=== PATIENT | male | born 1960 | race Caucasian/White ===

== ENCOUNTER 2017-08-11 13:46 | Emergency (ER) | payer BC ==
[~2017-08-11] VITALS: Ht 175.3 cm; Wt 69.9 kg
[~2017-08-11 13:46] MED LIST: ATENOLOL50 MG PO; CHLORDIAZEPOXI1 EACH PO; DICYCLOMINE HCL20 MG PO; FLAGYL500 MG PO; HOME PO; LEVSIN0.125 MG; LIALDA1.2 GM; LISINOPRIL10 MG PO; LOPRESSOR25 MG PO; MAGNESIUM IV; METRONIDAZOLE500 MG PO; PANTOPRAZOLE SO40 MG PO; PRINIVIL10 MG PO; PROTONIX40 MG PO; PROTONIX40 MG/ML PO; RAPAFLO4 MG PO; ZOFRAN ODT4 MG
[2017-08-11] MEDS ORDERED: ONDANSETRON HCL 4 MG ORAL DISINTEGRATING TAB ONE (14:50)
[2017-08-11] MEDS ORDERED: MULTIVITAMINS- 12 INJECTION 10 ML, FOLIC ACID MDV 5 MG, THIAMINE HCL INJ 100 MG in SODI... IV ONE (15:00)
[2017-08-11] MEDS ORDERED: ONDANSETRON HCL 4 MG ORAL DISINTEGRATING TAB PO ONE ×2 (15:00)
--- NOTE | 2017-08-11 16:51 | Diagnostic Imaging Report ---
PROCEDURE: CT ABDOMEN AND PELVIS WITHOUT CONTRAST COMPARISON:06/27/15. INDICATIONS:ULCERATIVE COLITIS, VOMITTING CENTER ABDOMINAL PAIN FOR 3 DAYS TECHNIQUE: Axial CT images through the abdomen and pelvis were obtained without intravenous contrast. Coronal and sagittal reformations were created. DLP: 371.4 mGy-cm FINDINGS: Lung bases: Clear. Visualized portion mediastinum is normal. Right kidney: No calculus, mass, or hydronephrosis. Left kidney: There may be a pixel sized calculus in an anterior interpolar calyx. No hydronephrosis. No cortical mass. Bladder/ureters: Normal diameter throughout their course. No calculus. The bladder is normal. Liver: Profound hepatic steatosis. The right lobe measures 17 cm in length. No evidence of mass. Spleen: Normal in size and attenuation without mass. Biliary: Present. No evidence of gallstone or gallbladder wall thickening. No biliary ductal dilatation. Pancreas: Mild fatty atrophy. No mass or ductal dilatation. Adrenal Glands: No evidence of mass Vasculature: The aorta is normal in diameter with a few atherosclerotic calcifications. GI: The stomach is well distended and appears normal. The small bowel is normal in diameter with normal wall thickness. There is a small amount of submucosal fat deposition in the terminal ileum. No associated inflammation or lymphadenopathy. A diverticulum in the first portion of the duodenum contains a small amount of enteric contrast. This measures 7 mm in diameter. There are diverticula in the large bowel without associated inflammation. There is a small amount of contrast throughout the colon. Submucosal fat deposition in the right colon is stable with some progression into the transverse colon compared to previous exam. There is no evidence of fistula or fluid collection. Appendix: Normal. Peritoneum/Retroperitoneum: No free fluid or fluid collection. Lymph nodes: No lymphadenopathy. MSK: There mild degenerative changes of the spine consistent with age. Vertebral body heights are symmetric. There is no evidence of lytic or blastic lesion. Soft tissues: Small fat-containing inguinal hernias. CONCLUSION: 1. Diverticulosis coli. No acute inflammation. Progression of submucosal fat deposition suggestive of previous bouts of inflammation. No bowel obstruction. Normal appendix. 2. Profound hepatic steatosis. 3. Tiny potential calculus in the left kidney. No obstructive uropathy. Dictated by: Helen Slaughter M.D. on 08/11/2017 at 16:59 Electronically approved by: Helen Slaughter M.D. on 08/11/2017 at 16:59
[2017-08-11 20:30] LABS: BASOPHILS # (AUTO) 0.1 (0.0-0.1); BASOPHILS % 0.7 % (0.0-1.0); EOSINOPHILS % 0.1 % (0.0-6.0); HEMATOCRIT 49.7 % (38.2-49.6); HEMOGLOBIN 17.4 g/dL (14.0-18.0); LYMPHOCYTES # (AUTO) 1.7 (1.0-3.2); MEAN CORPUSCULAR HEMOGLOBIN 32.7 pg (28-32); MEAN CORPUSCULAR VOLUME 93.4 fL (81-99); MONOCYTES # (AUTO) 0.8 (0.2-0.8); MONOCYTES % 12.4 % (4.4-11.3); NEUTROPHILS # (AUTO) 4.2 (2.1-6.9); NEUTROPHILS % 61.5 % (38.7-80.0); PLATELET COUNT 117 x10e3/uL (140-360); RED BLOOD COUNT 5.32 x10e6/uL (4.3-5.7); RED CELL DISTRIBUTION WIDTH 12.8 % (11.7-14.4)
[2017-08-11] MEDS ORDERED: ONDANSETRON HCL INJ 2 MG/ML VIAL IV ONE (20:30)
[2017-08-11] MEDS ORDERED: KETOROLAC TROMETHAMINE 30 MG/ML VIAL IV ONE (20:30)
[2017-08-11 20:46] LABS: ALANINE AMINOTRANSFERASE 111 IU/L (0-55); ALBUMIN 4.7 g/dL (3.5-5.0); ALBUMIN/GLOBULIN RATIO 1.2 (0.8-2.0); ALKALINE PHOSPHATASE 102 IU/L (40-150); AMYLASE 85 U/L (25-125); ANION GAP 26.6 mmol/L (8-16); BLOOD UREA NITROGEN 12 mg/dL (7-26); BUN/CREATININE RATIO 13 (6-25); CARBON DIOXIDE 23 mmol/L (22-29); CHLORIDE 93 mmol/L (98-107); CREATININE, SERUM 0.95 mg/dL (0.72-1.25); EST GLOMERULAR FILTRATION RATE > 60 ML/MIN (60-); GLUCOSE 81 mg/dL (74-118); LIPASE 159 U/L (8-78); POTASSIUM 3.6 mmol/L (3.5-5.1); SODIUM 139 mmol/L (136-145)
[2017-08-11] MEDS ORDERED: HYOSCYAMINE SULFATE 0.5 MG/ML AMP IV ONE (23:00)
[2017-08-11] MEDS ORDERED: DICYCLOMINE HCL 20 MG TAB PO ONE (23:45)
[2017-08-11 23:49] VITALS: BP 153/97
== END 2017-08-12 00:45 | disposition home or self-care (01) ==
LOC: ER 13:46
DX: R10.11 Right upper quadrant pain (principal); R10.12 Left upper quadrant pain; R11.2 Nausea with vomiting, unspecified; K29.20 Alcoholic gastritis without bleeding; I10 Essential (primary) hypertension; K86.9 Disease of pancreas, unspecified; F17.220 Nicotine dependence, chewing tobacco, uncomplicated
CPT/HCPCS: 36415; 74176; 80053; 82150; 83690; 85025; 96360; 96374; 96376; 99284; J1885; J2405; J3411; J7030; J1980

== ENCOUNTER → 2017-08-22 | Day surgery (SDC) | payer BC ==
[~2017-08-22] MED LIST changes: +FENTANYL CITRATE/PF 100MCG/2 ML INJ ONE; +LIDOCAINE HCL 2% LOCAL INJ 5 ML SDV VIAL INJ ONE; +METOCLOPRAMIDE HCL 10 MG/2ML VIAL ONE; +MIDAZOLAM HCL 2 MG/2 ML VIAL ONE; +PROPOFOL IV EMULSION 10 MG/ML 50 ML VIAL ONE
--- NOTE | 2017-08-22 13:04 | Operative Report ---
DATE OF PROCEDURE: August 22, 2017 REFERRING PHYSICIAN: Dr. Ashish Sanches. PROCEDURES PERFORMED 1. Esophagogastroduodenoscopy with esophageal dilatation and biopsies. 2. Colonoscopy with polypectomy and biopsies. INDICATIONS FOR EGD: Dysphagia, nausea and vomiting. INDICATIONS FOR COLONOSCOPY: Persistent diarrhea. MEDICATION: Patient was done under MAC. Please see anesthesiologist's note. PROCEDURE: With the patient in the left lateral decubitus position, the flexible fiberoptic Olympus gastroscope was introduced into the esophagus under direct visualization without any difficulty. There was some patchy erythema noted in the distal esophagus. There was some focal nodularity noted at the GE junction, and that was biopsied. A mild stricture was noted at the GE junction that was dilated to size 50-Yi Umaña. An approximately 7-mm nodule was noted in the hiatal hernia sac, and that was biopsied. The scope then traversed with ease the hiatal hernia and was advanced all the way to the stomach. Mucosa overlying the antrum and the body revealed some patchy erythema and mild to moderate edema, and biopsies were obtained and sent to stain for H. pylori. The pylorus was of normal contour and shape. It was intubated with ease, and the scope was advanced all the way to the 2nd portion of the duodenum. The scope was then withdrawn slowly. Mucosa overlying the proximal 2nd portion was biopsied to rule out sprue. Mucosa overlying the duodenal bulb appeared to be within normal limits. The scope was then withdrawn back into the stomach and retroflexed, and mucosa overlying the fundus appeared to be within normal limits. The previously described hiatal hernia was also noted in the retroflexed position. The scope was then straightened out, and it was subsequently withdrawn. Patient tolerated the procedure well. IMPRESSION 1. Distal esophagitis. 2. Focal nodularity at gastroesophageal junction, biopsied. 3. Esophageal stricture at gastroesophageal junction dilated to a size 50-Yi Umaña. 4. Small hiatal hernia. Approximately 7-mm nodule in hiatal hernia sac, biopsied. 5. Gastritis, biopsied. Biopsies sent to stain for H. pylori. 6. Rule out sprue. PLAN: Follow up histology. Initiate Protonix 40 mg 1 p.o. q.a.m. a.c. The patient was then turned around. After adequate lubrication of the anal canal, a flexible fiberoptic Olympus colonoscope was inserted into the rectum with ease and advanced all the way to the cecum. The mucosa overlying the cecum appeared to be within normal limits. The ileocecal valve was intubated. The scope was advanced into the terminal ileum. Biopsies were obtained. The scope was then withdrawn back into the colon. It was then withdrawn slowly. Mucosa overlying the ascending colon and transverse colon as well as the descending colon and the sigmoid colon revealed some patchy erythema and low-grade to moderate edema, and random biopsies were obtained. Some diverticular disease was noted in the sigmoid colon. One polyp was snared and three polyps were hot biopsied from the sigmoid. Six polyps were hot biopsied from the rectum. The scope was then retroflexed into the distal rectum, and small internal hemorrhoids were noted, none of which was actively bleeding. The scope was then straightened out. It was subsequently withdrawn after securing an adequate stool specimen that was sent for the appropriate stool studies. Patient tolerated the procedure well. IMPRESSION 1. Mild patchy colitis, random biopsies obtained. 2. Diverticulosis, sigmoid colon. 3. Sigmoid colon polyps times 4, one snared and three hot biopsied. 4. Rectal polyps times 6, hot biopsied. 5. Proctitis, mild, biopsied. 6. Internal hemorrhoids, none actively bleeding. PLAN: Follow up histology. Follow up stool studies. Start Bentyl 10 mg 1 p.o. t.i.d. Patient will need a followup colonoscopy in 3 years. Job#: [id number] cc:ASHISH SANCHES MD
[2017-08-22 17:21] LABS: WBC,FECAL (FECAL LACTOFERRIN) NEGATIVE (NEGATIVE)
[2017-08-22 17:24] LABS: C DIFFICILE TOXIN A&B AMP PROB **POSITIVE** (NEGATIVE)
== END | disposition home or self-care (01) ==
LOC: OR 09:10
PROVIDERS: ATTEND Internal Medicine Gastroenterology
DX: K51.80 Other ulcerative colitis without complications (principal); D12.5 Benign neoplasm of sigmoid colon; K62.1 Rectal polyp; K29.70 Gastritis, unspecified, without bleeding; K22.2 Esophageal obstruction; K29.80 Duodenitis without bleeding; K20.9 Esophagitis, unspecified; K22.8 Other specified diseases of esophagus; K44.9 Diaphragmatic hernia without obstruction or gangrene; K57.30 Diverticulosis of large intestine without perforation or abscess without bleeding; K62.89 Other specified diseases of anus and rectum; K64.8 Other hemorrhoids; K76.0 Fatty (change of) liver, not elsewhere classified; I10 Essential (primary) hypertension; G62.9 Polyneuropathy, unspecified; Z01.810 Encounter for preprocedural cardiovascular examination
CPT/HCPCS: 43239; 43450; 45384; 45385; 83630; 83993; 87045; 87177; 87328; 87493; 93005; J2001; J2250; J2765; 45378; 45380

== ENCOUNTER 2019-03-30 02:14 | Inpatient (IN) | payer SELFPAY ==
[2019-03-30] VITALS (7 sets, daily range): BP systolic 98–121; BP diastolic 62–85
[~2019-03-30] VITALS: Ht 175.3 cm; Wt 69.9 kg
[~2019-03-30 02:14] MED LIST changes: -FENTANYL CITRATE/PF 100MCG/2 ML INJ ONE; -LIDOCAINE HCL 2% LOCAL INJ 5 ML SDV VIAL INJ ONE; -METOCLOPRAMIDE HCL 10 MG/2ML VIAL ONE; -MIDAZOLAM HCL 2 MG/2 ML VIAL ONE; -PROPOFOL IV EMULSION 10 MG/ML 50 ML VIAL ONE
[2019-03-30] MEDS ORDERED: SODIUM CHLORIDE 0.9% 1000ML 1,000 ML IV STA ×3 (02:17→04:10)
[2019-03-30] MEDS ORDERED: ONDANSETRON HCL INJ 2MG/ML 2ML 2 MG/ML VIAL IV STA (02:17)
--- OUTSIDE RECORDS SUMMARY | 2019-03-30 02:18 | XMS REPORT | Clinical Summary ---
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 Active ciclesonide 37 Use 1 Helix 0 mcg/actuation HFA aerosol in each 8 inhaler nostril daily For nasal congestion. Active gabapentin (NEURONTIN) Take by 0 300 mg capsule mouth. 8 Active gabapentin (NEURONTIN) Take by 0 600 mg tablet mouth. 8 Active mirtazapine (REMERON) 15 Take by 0 MG tablet mouth. 8 Active PARoxetine (PAXIL) 10 MG Take by 0 tablet mouth. 8 Active traZODone (DESYREL) 100 Take by 0 MG tablet mouth. 8 Active Problems Not on file Encounters Care Team Description Date Type Specialty N/A 04/09/2018 Intake Access Alvarez Roy Jr., MD Suicidal ideation (Primary Dx); Depression, unspecified depression type 04/08/2018 Emergency Emergency Medicine - 04/09/2018 after 03/29/2018 Social History Date Tobacco Use Types Packs/Day Years Used Never Smoker Smokeless Tobacco: Never Used Drinks/Week oz/Week Comments Alcohol Use Yes Sex Assigned at Date Recorded Not on file Industry Job Start Date Occupation Not on file Not on file Not on file Travel End Travel History Travel Start No recent travel history available. Last Filed Vital Signs Reading Time Taken Comments Vital Sign 140/72 04/09/2018 5:41 AM CDT Blood Pressure 82 04/09/2018 5:41 AM CDT Pulse 36.9 C (98.4 F) 04/09/2018 5:41 AM CDT Temperature 16 04/09/2018 5:41 AM CDT Respiratory Rate 98% 04/09/2018 5:41 AM CDT Oxygen Saturation - - Inhaled Oxygen Concentration - - Weight 177.8 cm (5' 10") 04/08/2018 5:47 PM CDT Height - - Body Mass Index Plan of Treatment Not on file Procedures Comments Procedure Name Priority Date/Time Associated Diagnosis ALCOHOL LEVEL, BLOOD Timed 04/09/2018 3:34 AM CDT ECG ED PRELIMINARY Routine 04/08/2018 INTERPRETATION 8:01 PM CDT URINALYSIS SCREEN AND STAT 04/08/2018 MICROSCOPY, WITH REFLEX 6:28 PM CDT TO CULTURE URINE DRUGS OF ABUSE STAT 04/08/2018 SCREEN 6:28 PM CDT ECG 12-LEAD STAT 04/08/2018 6:25 PM CDT ZZESTIMATED GFR STAT 04/08/2018 6:15 PM CDT SALICYLATE LEVEL STAT 04/08/2018 6:15 PM CDT ACETAMINOPHEN LEVEL STAT 04/08/2018 6:15 PM CDT ALCOHOL LEVEL, BLOOD STAT 04/08/2018 6:15 PM CDT T4, FREE STAT 04/08/2018 6:15 PM CDT THYROID STIMULATING STAT 04/08/2018 HORMONE 6:15 PM CDT COMPREHENSIVE METABOLIC STAT 04/08/2018 PANEL 6:15 PM CDT HC COMPLETE BLD COUNT STAT 04/08/2018 W/AUTO DIFF 6:15 PM CDT after 03/29/2018 Results * Alcohol level, blood (04/09/2018 3:34 AM CDT) Only the most recent of 2 results within the time period is included. Alcohol 51.6 mg/dL [facility] Comment: OF PATHOLOGY Normal AND GENOMIC None MEDICINE Detected Legal Intoxication in [place] 80 mg/dL (0.08%) Toxic Concentration 200 mg/dL (0.2%) Potentially Fatal 350-500 mg/dL (0.35%-0.5%) Alcohol percent 0.052 % [facility] OF PATHOLOGY AND GENOMIC MEDICINE Specimen Blood Performing Organization Address City/State/Zipcode Phone Number [facility] [address] [place] [address] PATHOLOGY AND GENOMIC MEDICINE * ECG ED Preliminary Interpretation - NOT AN ORDER (04/08/2018 8:01 PM CDT) Narrative Performed At Alvarez Roy Jr., MD 04/10/20181:51 AM ECG ED Preliminary Interpretation - Not an Order Performed by: ALVAREZ ROY JR. Authorized by: ALVAREZ ROY JR. ECG reviewed by ED Physician in the absence of a microfilm processor: yes Interpretation: Interpretation: normal Rate: ECG rate:83 ECG rate assessment: normal Rhythm: Rhythm: sinus rhythm Ectopy: Ectopy: none QRS: QRS axis:Normal Conduction: Conduction: normal ST segments: ST segments:Normal T waves: T waves: normal * Urinalysis screen and microscopy, with reflex to culture (04/08/2018 6:28 PM CDT) Specimen site Clean catch [facility] OF PATHOLOGY AND GENOMIC MEDICINE Color, UA Straw [facility] OF PATHOLOGY AND GENOMIC MEDICINE Appearance, UA Clear [facility] OF PATHOLOGY AND GENOMIC MEDICINE Specific 1.004 1.001 - 1.035 [facility] gravity, OF PATHOLOGY AND GENOMIC MEDICINE pH, UA 6.0 5.0 - 8.5 [facility] OF PATHOLOGY AND GENOMIC MEDICINE Protein, UA Negative Negative [facility] OF PATHOLOGY AND GENOMIC MEDICINE Glucose, UA Negative Negative [facility] OF PATHOLOGY AND GENOMIC MEDICINE Ketones, UA Negative Negative [facility] OF PATHOLOGY AND GENOMIC MEDICINE Bilirubin, UA Negative Negative [facility] OF PATHOLOGY AND GENOMIC MEDICINE Blood, UA Negative Negative [facility] OF PATHOLOGY AND GENOMIC MEDICINE Nitrite, UA Negative Negative [facility] OF PATHOLOGY AND GENOMIC MEDICINE Urobilinogen, Negative <2.0 [facility] UA OF PATHOLOGY AND GENOMIC MEDICINE Leukocyte Negative Negative [facility] esterase, UA OF PATHOLOGY AND GENOMIC MEDICINE WBC, UA <1 0 - 1 /HPF [facility] OF PATHOLOGY AND GENOMIC MEDICINE RBC, UA 1 0 - 5 /HPF [facility] OF PATHOLOGY AND GENOMIC MEDICINE Bacteria, UA Trace None seen [facility] OF PATHOLOGY AND GENOMIC MEDICINE Yeast, UA None seen [facility] OF PATHOLOGY AND GENOMIC MEDICINE Yeast with None seen [facility] pseudohyphae, OF PATHOLOGY UA AND GENOMIC MEDICINE Specimen Urine Performing Organization Address City/State/Zipcode Phone Number [facility] [address] [place] [address] PATHOLOGY AND GENOMIC MEDICINE * Urine drugs of abuse screen (04/08/2018 6:28 PM CDT) Amphetamine Negative [facility] screen, urine OF PATHOLOGY AND GENOMIC MEDICINE Barbiturate Negative [facility] screen, urine OF PATHOLOGY AND GENOMIC MEDICINE Benzodiazepine Negative [facility] screen, urine OF PATHOLOGY AND GENOMIC MEDICINE Cocaine screen, Negative [facility] urine OF PATHOLOGY AND GENOMIC MEDICINE Methadone Negative [facility] screen, urine OF PATHOLOGY AND GENOMIC MEDICINE Opiates screen, Negative [facility] urine OF PATHOLOGY AND GENOMIC MEDICINE Phencyclidine Negative [facility] screen, urine OF PATHOLOGY AND GENOMIC MEDICINE Cannabinoid Negative [facility] screen, urine Comment: OF PATHOLOGY Drug screen minimum AND GENOMIC concentration of detectability MEDICINE Amphetamines 1000 ng/mL Methamphetamines 1000 ng/mL Barbiturates 300 ng/mL Benzodiazepines 300 ng/mL Cocaine 300 ng/mL Methadone 300 ng/mL Opiates 300 ng/mL Phencyclidine 25 ng/mL Cannabinoids 50 ng/mL Tricyclics 1000 ng/mL Negative test results indicates presumptive evidence of lack of clinically significant drug concentration in this urine specimen. Positive test results are presumptive evidence of clinically significant drug concentration in this urine specimen. Testing performed for medical purposes only. Specimen Urine Performing Organization Address City/State/Zipcode Phone Number [facility] [address] [place] [address] PATHOLOGY AND GENOMIC MEDICINE * ECG 12 lead (04/08/2018 6:25 PM CDT) Ventricular 83 [facility] rate Atrial rate 83 [facility] DC interval 144 [facility] QRSD interval 66 [facility] QT interval 360 [facility] QTC interval 423 [facility] P axis 1 69 [facility] QRS axis 1 -36 [facility] T wave axis 44 [facility] EKG impression Normal sinus rhythm-Left axis [facility] deviation-Abnormal ECG-No previous ECGs available- Specimen Performing Organization Address City/State/Zipcode Phone Number [facility] M[facility] [address] [place] [address] * Estimated GFR (04/08/2018 6:15 PM CDT) Pathologist [facility] [place] GFR Non Af Amer >90 mL/min/1.73 m2 [facility] OF PATHOLOGY AND GENOMIC MEDICINE GFR Af Amer >90 mL/min/1.73 m2 [facility] Comment: OF PATHOLOGY Chronic kidney disease: <60 AND GENOMIC mL/min/1.73m2 MEDICINE Kidney failure: <15 mL/min/1.73m2 The estimated GFR is calculated from the IDMS-traceable Modification of Diet in Renal Disease Equation. The accuracy of the calculation is poor when the creatinine is normal. Calculated values >90 mL/min/1.73m2 are not reported. This equation has not been validated in children (<18 years), women, the elderly (>70 years), or ethnic groups other than Caucasians and Americans. Specimen Plasma specimen Performing Organization Address City/State/Zipcode Phone Number [facility] [address] [place] [address] PATHOLOGY AND GENOMIC MEDICINE * CBC with platelet and differential (04/08/2018 6:15 PM CDT) [facility] WBC 8.2 4.2 - 11.0 k/uL [facility] OF PATHOLOGY AND GENOMIC MEDICINE RBC 4.53 4.04 - 5.86 m/uL [facility] OF PATHOLOGY AND GENOMIC MEDICINE HGB 15.0 13.0 - 17.3 g/dL [facility] OF PATHOLOGY AND GENOMIC MEDICINE HCT 46.0 (H) 34.0 - 45.0 % [facility] OF PATHOLOGY AND GENOMIC MEDICINE MCV 101.5 (H) 80.0 - 98.0 fL [facility] OF PATHOLOGY AND GENOMIC MEDICINE MCH 33.1 27.0 - 34.0 pg [facility] OF PATHOLOGY AND GENOMIC MEDICINE MCHC 32.6 31.5 - 36.5 g/dL [facility] OF PATHOLOGY AND GENOMIC MEDICINE RDW - SD 55.8 (H) 37.0 - 51.0 fL [facility] OF PATHOLOGY AND GENOMIC MEDICINE MPV 10.9 (H) 7.4 - 10.4 fL [facility] OF PATHOLOGY AND GENOMIC MEDICINE Platelet count 221 150 - 400 k/uL [facility] OF PATHOLOGY AND GENOMIC MEDICINE Nucleated RBC 0.00 /100 WBC [facility] OF PATHOLOGY AND GENOMIC MEDICINE Neutrophils 39.5 36.0 - 66.0 % [facility] OF PATHOLOGY AND GENOMIC MEDICINE Lymphocytes 44.3 (H) 24.0 - 44.0 % [facility] OF PATHOLOGY AND GENOMIC MEDICINE Monocytes 9.5 (H) 0.0 - 6.0 % [facility] OF PATHOLOGY AND GENOMIC MEDICINE Eosinophils 5.1 0.0 - 6.0 % [facility] OF PATHOLOGY AND GENOMIC MEDICINE Basophils 1.5 (H) 0.0 - 1.2 % [facility] OF PATHOLOGY AND GENOMIC MEDICINE Immature 0.1 0.0 - 1.0 % [facility] granulocytes OF PATHOLOGY AND GENOMIC MEDICINE Specimen Blood Performing Organization Address [facility] [place] [address] PATHOLOGY AND GENOMIC MEDICINE * Thyroid stimulating hormone (04/08/2018 6:15 PM CDT) TSH 0.77 0.27 - 4.20 uIU/mL [facility] OF PATHOLOGY AND GENOMIC MEDICINE Specimen Plasma specimen Performing Organization Address City/[facility] [place] [address] PATHOLOGY AND GENOMIC MEDICINE * T4, free (04/08/2018 6:15 PM CDT) T4, free 1.06 0.90 - 1.70 ng/dL [facility] OF PATHOLOGY AND GENOMIC MEDICINE Specimen Plasma specimen Performing Organization Address City/[facility] [place] [address] PATHOLOGY AND GENOMIC MEDICINE * Acetaminophen level (04/08/2018 6:15 PM CDT) Acetaminophen <15.3 10.0 - 30.0 ug/mL [facility] level Comment: OF PATHOLOGY Therapeutic AND GENOMIC 10-30 MEDICINE ug/mL Possible Toxicity 150-200 ug/mL Probable Toxicity >200 ug/mL Specimen Blood Performing Organization Address [facility] [place] [address] PATHOLOGY AND GENOMIC MEDICINE * Salicylate level (04/08/2018 6:15 PM CDT) Pathologist [facility] [place] Salicylate <0.4 (L) 3.0 - 30.0 mg/dL [facility] Comment: OF PATHOLOGY Therapeutic Range: AND GENOMIC 5 - 30 mg/dL MEDICINE Specimen Blood Performing Organization Address [facility] Cent[facility] Phone Number [facility] [address] [place] [address] PATHOLOGY AND GENOMIC MEDICINE * Comprehensive metabolic panel (04/08/2018 6:15 PM CDT) [facility] Sodium 146 135 - 150 mEq/L [facility] OF PATHOLOGY AND GENOMIC MEDICINE Potassium 4.0 3.5 - 5.0 mEq/L [facility] OF PATHOLOGY AND GENOMIC MEDICINE Chloride 106 98 - 112 mEq/L [facility] OF PATHOLOGY AND GENOMIC MEDICINE CO2 25 24 - 31 mmol/L [facility] OF PATHOLOGY AND GENOMIC MEDICINE Anion gap 15@ANIO 7 - 15 mEq/L [facility] OF PATHOLOGY AND GENOMIC MEDICINE BUN 5 (L) 7 - 18 mg/dL [facility] OF PATHOLOGY AND GENOMIC MEDICINE Creatinine 0.80 0.70 - 1.20 mg/dL [facility] OF PATHOLOGY AND GENOMIC MEDICINE Glucose 94 65 - 100 mg/dL [facility] OF PATHOLOGY AND GENOMIC MEDICINE Calcium 9.2 8.3 - 10.2 mg/dL [facility] OF PATHOLOGY AND GENOMIC MEDICINE Protein 7.5 6.3 - 8.3 g/dL [facility] OF PATHOLOGY AND GENOMIC MEDICINE Albumin 4.1 3.5 - 5.0 g/dL [facility] OF PATHOLOGY AND GENOMIC MEDICINE A/G ratio 1.2 0.7 - 3.8 [facility] OF PATHOLOGY AND GENOMIC MEDICINE Alkaline 72 0 - 129 U/L [facility] phosphatase OF PATHOLOGY AND GENOMIC MEDICINE AST 27 10 - 50 U/L [facility] OF PATHOLOGY AND GENOMIC MEDICINE ALT 17 5 - 50 U/L [facility] OF PATHOLOGY AND GENOMIC MEDICINE Total bilirubin 0.3 0.2 - 1.2 mg/dL [facility] OF PATHOLOGY AND GENOMIC MEDICINE Specimen Plasma specimen Performing Organization Address City/[facility]/Zipcode Phone Number [facility] [address] [place] [address] PATHOLOGY AND GENOMIC MEDICINE after 03/29/2018 Advance Directives For more information, please contact: [phone] 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
--- OUTSIDE RECORDS SUMMARY | 2019-03-30 02:19 | XMS REPORT | Clinical Summary ---
Author Author [facility] Organization [facility] Address Unknown Phone Unavailable Care Team Providers Care Rn Infusion Name Role Phone Shilpa Rader DO PCP Allergies Comments Active Allergy Reactions Severity Noted Date From cat scan dye Iodine Itching Medium 03/08/2018 Medications End Date Status Medication Sig Dispensed Refills Start Date Active gabapentin (NEURONTIN) Take 1 270 capsule 0 300 mg capsule by 8 capsuleIndications: mouth 3 times Alcohol withdrawal daily. syndrome without complication Active chlordiazePOXIDE Take up to 2 12 capsule 0 (LIBRIUM) 25 mg tablets daily 8 capsuleIndications: as needed for Alcohol withdrawal shaking and syndrome without anxiety from complication alcohol withdrawal for 6 days.. Active folic acid (FOLVITE) 1 mg Take 1 tablet 90 tablet 3 tabletIndications: Folic by mouth 8 acid deficiency daily. Active gabapentin (NEURONTIN) Take 1 tablet 90 tablet 1 600 mg tabletIndications: by mouth 3 8 Anxiety, Idiopathic times daily peripheral neuropathy For anxiety. Active mirtazapine (REMERON) 15 Take 1 tablet 30 tablet 2 mg tabletIndications: by mouth at 8 Insomnia, unspecified bedtime type nightly For sleep. Active PARoxetine (PAXIL) 10 mg Take 1 tablet 90 tablet 0 tabletIndications: by mouth 8 Depression, unspecified every morning depression type For depression. Active traZODone (DESYREL) 100 Take 1 tablet 30 tablet 2 mg tabletIndications: by mouth at 8 Insomnia, unspecified bedtime type, Depression, nightly For unspecified depression depression type and sleep. Active ciclesonide (ZETONNA) 37 Use 1 [place] 6.1 g 2 mcg/actuation nasal HFA in each 8 inhalerIndications: Nasal nostril daily congestion For nasal congestion. Active ergocalciferol (VITAMIN Take 1 12 capsule 0 D2) 50,000 unit capsule by 8 capsuleIndications: mouth weekly Vitamin D deficiency For 3 months and then buy vitamin D3: 2000 units and take 1 tablet/day. 03/08/2018 Discontinued folic acid (FOLVITE) 1 mg Take 1 tablet 30 tablet 1 tabletIndications: by mouth 8 Alcohol withdrawal daily. syndrome without complication Status Hospital, Clinic, or Ordered Dose Route Frequency Start End Date Other Facility Date Administered Medication Active cyanocobalamin (VITAMIN 1000 mcg IM EVERY 28 DAYS 03/08/20 B-12) injection 1,000 18 9 mcgIndications: Vitamin B12 deficiency Active Problems Problem Noted Date Depression 03/08/2018 Nasal congestion 03/08/2018 Alcohol withdrawal syndrome without complication 02/20/2018 Alcohol withdrawal 02/20/2018 Fall 02/19/2018 Cervical spondylosis 05/25/2007 Tremors of nervous system Medication refill Uncomplicated alcohol dependence Vitamin B12 deficiency Folic acid deficiency Peripheral neuropathy Anemia Tobacco chew use Visual hallucinations Homeless Vitamin D deficiency Resolved Problems Problem Noted Date Resolved Date Hallucinations 02/21/2018 Gait abnormality 02/21/2018 Encounters Care Team Description Date Type Specialty 01/07/2019 Travel Paola Stone MD No Show 04/06/2018 Hospital Radiology Encounter Paola Stone MD Results 03/10/2018 Telephone Family Practice Paola Stone MD Vitamin D deficiency (Primary Dx) 03/10/2018 Orders Only Family Practice Paola Stone MD Health care maintenance (Primary Dx); Alcohol withdrawal syndrome without complication; Folic acid deficiency; Vitamin B12 deficiency; Insomnia, unspecified type; Depression, unspecified depression type; Anxiety; Idiopathic peripheral neuropathy; Tobacco chew use; Abnormal EKG; Nasal congestion; Healthcare maintenance 03/08/2018 Office Visit Family Practice Paola Stone MD Insomnia, unspecified type; Depression, unspecified depression type; Anxiety; Health care maintenance; Abnormal EKG 03/08/2018 Orders Only Family Practice Eunice Travis RN 03/08/2018 Clinical 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 Haider Cruz, Uncomplicated alcohol dependence (Primary Dx); Medication refill 02/22/2018 Emergency Emergency Medicine Braden Conte MD Mahadasyam, Suvarna L, MD Fall, subsequent encounter (Primary Dx); Hallucinations; Tremors of nervous system; Alcohol withdrawal syndrome without complication 02/19/2018 Hospital - Encounter 02/21/2018 after 01/06/2018 Immunizations Name Administration Dates Next Due Tdap (Tetanus Toxoid, 03/08/2018 (Deferred: Patient Refused - pt has Reduced Diphtheria Toxoid cold s/s today ) And Acellular Pertussis, Absorbed) Family History Medical History Relation Name Comments Arthritis Father Cancer Father Heart Father Hypertension Father Diabetes Maternal Aunt Asthma Mother Diabetes Mother Hypertension Mother Relation Name Status Comments Father Maternal Aunt Mother (Age 64) Social History Date Tobacco Use Types Packs/Day Years Used Never Smoker Smokeless Tobacco: Chew Current User Tobacco Cessation: Ready to Quit: No; Counseling Given: Yes Comments: 1/2 pack per day Drinks/Week oz/Week Comments Alcohol Use 6 Cans of beer 3.6 former ETOH abuse Yes Food Insecurity Answer Date Recorded Within the past 12 months, you worried that your Often true 03/08/2018 food would run out before you got money to buy more. Within the past 12 months, the food you bought Often true 03/08/2018 just didn't last and you didn't have money to get more. Sex Assigned at Date Recorded Not on file Industry Job Start Date Occupation Not on file Not on file Not on file Travel End Travel History Travel Start No recent travel history available. Last Filed Vital Signs Reading Time Taken Comments Vital Sign 121/80 03/08/2018 1:25 PM CDT Blood Pressure 101 03/08/2018 1:25 PM CDT Pulse 36.7 C (98.1 F) 03/08/2018 1:25 PM CDT Temperature 20 03/08/2018 1:25 PM CDT Respiratory Rate 96% 02/22/2018 7:00 PM CDT Oxygen Saturation - - Inhaled Oxygen Concentration 77.6 kg (171 lb) 03/08/2018 1:25 PM CDT Weight 175.3 cm (5' 9") 03/08/2018 1:25 PM CDT Height 25.25 03/08/2018 1:25 PM CDT Body Mass Index Plan of Treatment Health Maintenance Due Date Last Done Comments Colorectal Cancer Scrn 03/09/2019 03/09/2018 Annual (FIT/FOBT) Age 50 to 75 IMM Influenza Seasonal 05/01/2019 Oct to September (>/=19 yrs) Procedures Comments Procedure Name Priority Date/Time Associated Diagnosis FECAL OCCULT BLOOD Routine 03/09/2018 4:00 PM CDT URINE CULTURE Routine 03/09/2018 9:26 AM CDT URINALYSIS Routine 03/09/2018 9:26 AM CDT VIT D, 25-HYDROXY Routine 03/09/2018 9:25 AM CDT THYROID STIMULATING Routine 03/09/2018 HORMONE (TSH) 9:25 AM CDT RA FACTOR Routine 03/09/2018 9:25 AM CDT PROSTATE SPECIFIC ANTIGEN Routine 03/09/2018 (PSA) 9:25 AM CDT LIVER PROFILE Routine 03/09/2018 9:25 AM CDT LIPID PROFILE Routine 03/09/2018 9:25 AM CDT HEMOGLOBIN A1C Routine 03/09/2018 9:25 AM CDT SED RATE Routine 03/09/2018 9:25 AM CDT CBC/DIFF Routine 03/09/2018 9:25 AM CDT BREANN Routine 03/09/2018 9:25 AM CDT 12 LEAD EKG Routine 03/08/2018 Abnormal EKG 3:46 PM CDT CONSULT CLINICAL CASE STAT 02/22/2018 MANAGEMENT (RN/SW) 5:58 PM CDT IP CONSULT WITH INSIGHT Routine 02/21/2018 8:06 AM CDT BASIC METABOLIC PANEL Routine 02/21/2018 3:12 AM CDT FOLIC ACID Routine 02/21/2018 3:12 AM CDT VITAMIN B12 Routine 02/21/2018 3:12 AM CDT BMP POC Routine 02/20/2018 7:[address] HEAD W/O CONTRAST STAT 02/19/2018 Fall, subsequent 11:53 PM CDT encounter 12 LEAD EKG Routine 02/19/2018 10:21 PM CDT VBG POC Routine 02/19/2018 9:39 PM CDT TROPONIN I POC Routine 02/19/2018 9:38 PM CDT BMP POC Routine 02/19/2018 9:38 PM CDT HIV-1/HIV-2 ROUTINE STAT 02/19/2018 SCREENING 9:30 PM CDT LIVER PROFILE STAT 02/19/2018 9:30 PM CDT HEPATITIS PANEL STAT 02/19/2018 9:30 PM CDT CBC/DIFF STAT 02/19/2018 9:30 PM CDT ACETAMINOPHEN STAT 02/19/2018 9:30 PM CDT SALICYLATE STAT 02/19/2018 9:30 PM CDT ALCOHOL, MEDICAL USE ONLY STAT 02/19/2018 9:30 PM CDT URINE DRUG SCREEN STAT 02/19/2018 6:55 AM CDT URINALYSIS STAT 02/19/2018 6:55 AM CDT after 01/06/2018 Results * OCCULT BLOOD ICT (03/09/2018 4:00 PM CDT) Occult Blood Negative [facility] ICT Specimen Performing Organization Address City/State/Zipcode Phone Number [facility] * UA CHEMISTRIES (03/09/2018 9:26 AM CDT) Only the most recent of 2 results within the time period is included. Color Yellow BT [facility] 3 Clarity Clear [facility] 3 Specific 1.025 1.001 - 1.035 [facility] [place] 3 pH 5.0 5 - 8 [facility] 3 Protein 1+ (A) NEG BT [facility] 3 Glucose Negative NEG [facility] 3 Ketones Trace (A) NEG [facility] 3 Bilirubin Negative NEG [facility] 3 Nitrate Negative NEG [facility] 3 Urobilinogen,Se <1.0 0.2 - 1.0 EU/dL BT [facility] mi-Qn 3 Leukocyte Negative NEG [facility] 3 Occult Blood Negative NEG [facility] 3 RBC 1 0 - 4 /HPF [facility] 3 WBC <1 0 - 5 /HPF [facility] 3 Epithelial Cell <1 /HPF [facility] 3 Mucous Present BT [facility] 3 Specimen Performing Organization Address [facility] Phone Number [facility] 3 * URINE CULTURE (03/09/2018 9:26 AM CDT) Spec Clean catch urine [facility] Description Order Comments None [facility] Culture No growth 2 days BT MICROBIOLOGY Report Status Final 03/12/2018 BT MICROBIOLOGY Specimen Urine clean catch Performing Organization Address [facility] Phone Number [employer] [facility] BT [facility]OLOG[facility] * VIT D, 25-HYDROXY (03/09/2018 9:25 AM CDT) Vit D, 10.4 (L) 30 - 100 ng/mL BT DIAGNOSTIC 25-Hydroxy Comment: IMMUNOLOGY Vitamin D deficiency has been defined by the [place] of Medicine and Endocrine Society guideline as a level of serum 25-OH Vitamin D less than 20 ng/mL. The Endocrine Society further defines Vitamin D insufficiency as a level between 21 and 29 ng/mL and sufficiency as a level between 30 and 100 ng/mL. Specimen Performing Organization Address [facility] Phone Number [facility] BT DIAGNOSTIC IMMUNOLOGY * HEMOGLOBIN A1C (03/09/2018 9:25 AM CDT) Hemoglobin A1c 5.3 4.3 - 6.1 % BT DIAGNOSTIC IMMUNOLOGY Est Average 105.4 mg/dL BT DIAG[facility]IC Gluc IMMUNOLOGY Specimen Performing Organization Address [facility] Phone Number [facility] BT DIAGNOSTIC IMMUNOLOGY * TSH (03/09/2018 9:25 AM CDT) TSH 1.73 0.57 - 3.74 uIU/mL [facility] 1 Specimen Performing Organization Address [facility] Phone Number [facility] 1 * PSA (03/09/2018 9:25 AM CDT) Prostate 0.80 <4.1 ng/mL [facility] Specific Ag, 1 Serum Specimen Performing Organization Address [facility] Phone Number [facility] BT [facility] 1 * SED RATE (03/09/2018 9:25 AM CDT) Sed Rate 80 (H) <20 mm/Hr [facility] 3 Specimen Performing Organization Address [facility] Phone Number [facility] BT [facility] 3 * RA FACTOR (03/09/2018 9:25 AM CDT) RA Factor <10 <14 IU/mL [facility] 1 Specimen Performing Organization Address [facility] Phone Number [facility] BT [facility] 1 * LIVER PROFILE (03/09/2018 9:25 AM CDT) Only the most recent of 2 results within the time period is included. Protein, Total, 7.1 6.0 - 8.3 g/dL [facility] Serum 1 Albumin 4.3 4.2 - 5.5 g/dL [facility] 1 Bilirubin, 0.8 0.2 - 1.2 mg/dL [facility] Total 1 Alkaline 72 34 - 104 U/L [facility] Phosphatase, S 1 AST (SGOT) 17 13 - 39 U/L BT [facility] 1 ALT 24 7 - 52 U/L BT [facility] 1 D Bilirubin 0.2 0.0 - 0.2 mg/dL BT [facility] 1 Specimen Performing Organization Address [facility] Phone Number [facility] BT [facility] 1 * LIPID PROFILE (03/09/2018 9:25 AM CDT) Cholesterol 196 mg/dL [facility] Comment: 1 REFERENCE RANGE: Desirable: <200 mg/dL Borderline: 200-240 mg/dL High Risk: >240 mg/dL Triglyceride 139 <150 mg/dL BT [facility] Comment: 1 REFERENCE RANGE: Normal: <150 mg/dL Borderline High: 150-199 mg/dL High: 200-499 mg/dL Very High: >qh=523 mg/dL HDL 37 mg/dL [facility] Comment: 1 Increased CHD risk: <40 mg/dL Decreased CHD risk: >60 mg/dL LDL 131 mg/dL BT [facility] Comment: 1 REFERENCE RANGE: Optimal: <100 mg/dL Near Optimal: 100-129 mg/dL Borderline High: 130-159 mg/dL High: 160-189 mg/dL Very High: >ja=253 mg/dL Specimen Performing Organization Address City/State/Zipcode Phone Number [facility] 1 * CBC/DIFF (03/09/2018 9:25 AM CDT) Only the most recent of 2 results within the time period is included. WBC 12.6 (H) 4.5 - 12.0 K/uL BT [facility] 2 RBC 3.88 (L) 4.60 - 6.20 M/uL BT [facility] 2 Hemoglobin 14.0 14.0 - 18.0 g/dL BT [facility] 2 Hematocrit 42.4 40.0 - 54.0 % BT [facility] 2 MCV 109 (H) 82 - 92 fL BT [facility] 2 MCH 36.1 (H) 27.0 - 31.0 pg BT [facility] 2 MCHC 33.0 32.0 - 36.0 g/dL BT [facility] 2 RDW 58.4 (H) 35.1 - 43.9 fL BT [facility] 2 Platelets 219 150 - 400 K/uL BT [facility] 2 Mean Platelet 12.8 (H) 9.4 - 12.4 fL BT [facility] Volume 2 Percent NRBC 0.0 BT [facility] 2 Absolute NRBC 0.00 BT [facility] 2 Neutrophils 69.6 (H) 34.0 - 67.9 % BT [facility] 2 Lymphs 15.6 (L) 21.8 - 50.0 % BT [facility] 2 Monocytes 11.5 5.3 - 12.0 % BT [facility] 2 Eos 2.3 0.8 - 5.0 % BT [facility] 2 Basos 0.5 0.2 - 1.2 % BT [facility] 2 Immature 0.5 0.0 - 0.5 BT [facility] Granulocytes 2 Neutrophils 8.79 (H) 1.78 - 5.36 K/uL BT [facility] (Absolute) 2 Lymphs 1.97 1.32 - 3.57 K/uL BT [facility] (Absolute) 2 Monocytes(Absol 1.45 (H) 0.30 - 0.82 K/uL BT [facility] joceline) 2 Eos (Absolute) 0.29 0.04 - 0.54 K/uL BT [facility] 2 Baso (Absolute) 0.06 0.01 - 0.08 K/uL BT [facility] 2 Immature Grans 0.06 (H) 0.00 - 0.03 K/uL BT [facility] (Abs) 2 Specimen Performing Organization Address [facility] Phone Number [facility] BT [facility] 2 * BREANN (03/09/2018 9:25 AM CDT) BREANN Screen Negative NEG BT DIAGNOSTIC IMMUNOLOGY Specimen Performing Organization Address [facility] Phone Number [facility] BT DIAGNOSTIC IMMUNOLOGY * 12 LEAD EKG (03/08/2018 3:46 PM CDT) 12 LEAD EKG FOR [facility] Test Date:2018-03-08 Pat Name: LINDY FLEMING Department: Room: Gender: M [employer] Custodian: :1961-0 5-07 Requested By: Order Number: Martha licea MD: Krissy Pritchett M.D. Measurements Intervals [place] Rate: 106 P: 57 MI: 136 QRS: -46 QRSD: 78 T:57 QT: 330 QTc:438 Interpretive Statements SINUS TACHYCARDIA POSSIBLE LEFT ATRIAL ENLARGEMENT LEFT ANTERIOR FASCICULAR BLOCK Electronically Signed On 03-08-18 17:56:49 CDT by Krissy Pritchett M.D. Specimen Performing Organization Address [facility] Phone Number [facility] * FOLIC ACID (02/21/2018 3:12 AM CDT) Folic Acid 4.9 (L) 5.9 - 24.8 ng/mL BT [facility] 1 Specimen Blood Performing Organization Address [facility] Phone Number [facility] * VITAMIN B12 (02/21/2018 3:12 AM CDT) Vitamin B12 183 (L) 211 - 911 pg/mL BT [facility] 1 Specimen Blood Performing Organization Address [facility] Phone Number [facility] BT [facility] 1 * BASIC METABOLIC PANEL (02/21/2018 3:12 AM CDT) CO2 27 21 - 31 mmol/L BT [facility] 1 Chloride 105 98 - 107 mmol/L BT [facility] 1 Potassium 3.3 (L) 3.5 - 5.1 mmol/L BT [facility] 1 Sodium 144 136 - 145 mmol/L BT [facility] 1 Glucose 128 (H) 70 - 110 mg/dL [facility] 1 BUN 8 7 - 25 mg/dL [facility] 1 Creatinine 0.80 0.7 - 1.3 mg/dL [facility] 1 Anion Gap 12 BT [facility] 1 Calcium 8.1 (L) 8.6 - 10.3 mg/dL BT [facility] 1 GFR, Estimated >60 mL/min/1.73 m2 BT [facility] 1 eGFR If Africn >60 mL/min/1.73 m2 BT [facility] Am 1 Specimen Blood Performing Organization Address [facility] Phone Number [employer] BT [facility] 1 * BMP POC (02/20/2018 7:56 AM CDT) Only the most recent of 2 results within the time period is included. CO2 POC 25 21 - 32 mmol/L BT [facility]ATION 1 Chloride POC 104 98 - 107 mmol/L BT [facility] 1 Potassium POC 3.8 3.50 - 5.10 mmol/L BT [facility] 1 Sodium POC 144 136 - 145 mmol/L BT [facility] 1 Glucose POC 78 74 - 106 mg/dL BT [facility] 1 Urea Nitrogen 15 7 - 18 mg/dL BT [facility] POC 1 Creatinine POC 1.0 0.6 - 1.3 mg/dL BT [facility] 1 Calcium Ionized 0.96 (L) 1.15 - 1.29 mmol/L BT [facility] POC 1 Hemoglobin POC 12.9 (L) 14.0 - 18.0 g/dL BT [facility] 1 Hematocrit POC 38.0 (L) 40.0 - 54.0 % BT [facility] 1 GFR, Estimated >60 mL/min/1.73 m2 BT [facility] 1 GFR, Estim, >60 mL/min/1.73 m2 BT [facility]ATION Afr-Am 1 Specimen Performing Organization Address [facility] Phone Number [facility] BT [facility] 1 * CT HEAD W/O CONTRAST (02/19/2018 11:53 PM CDT) Specimen Impressions Performed At IMPRESSION: SMS 1.No acute intracranial abnormalities. 2.Moderate generalized volume loss, advanced for age. Mild chronic microvascular ischemic white matter changes. If the report is "FINALIZED" it indicates that the attending/staff radiologist has reviewed the images and agrees with the resident's interpretation. Dictated By: Jabari Alatorre MD, 02/19/2018 11:54 PM I have reviewed the study and agree with the findings in this report. Signed By: Maria R Mendes MD, 02/20/2018 12:06 AM Narrative Performed At Exam : Head CT without contrast SMS History: recent fall, hallucinations but no known underlying condition Comparison studies: None. Technique: Axial scans were obtained from skull base to the vertex. Coronal and sagittal reconstructions obtained from the axial data. IV Contrast: None Complications: None Radiation Dose: Total DLP: 787 mGy*cm. Estimated Effective Dose: DLP x 0.0021 mSv FINDINGS: Scalp/Skull: No abnormalities. Brain sulci: Moderately prominent. Ventricles: Moderate compensatory dilatation. No acute hydrocephalus. Extra-axial spaces: No masses or fluid collections. Parenchyma: Scattered hypodensities in the supratentorial white matter are nonspecific small vessel ischemic changes. No masses, hemorrhage or acute or chronic cortical insults Dural sinuses:No abnormal densities. Sellar/Suprasellar region: Intact. Skull base and Craniocervical junction: Intact . Procedure Note Interface, Rad/Mammog In - 02/20/2018 12:11 AM CDT Exam : Head CT without contrast History: recent fall, hallucinations but no known underlying condition Comparison studies: None. Technique: Axial scans were obtained from skull base to the vertex. Coronal and sagittal reconstructions obtained from the axial data. IV Contrast: None Complications: None Radiation Dose: Total DLP: 787 mGy*cm. Estimated Effective Dose: DLP x 0.0021 mSv FINDINGS: Scalp/Skull: No abnormalities. Brain sulci: Moderately prominent. Ventricles: Moderate compensatory dilatation. No acute hydrocephalus. Extra-axial spaces: No masses or fluid collections. Parenchyma: Scattered hypodensities in the supratentorial white matter are nonspecific small vessel ischemic changes. No masses, hemorrhage or acute or chronic cortical insults Dural sinuses: No abnormal densities. Sellar/Suprasellar region: Intact. Skull base and Craniocervical junction: Intact . IMPRESSION IMPRESSION: 1. No acute intracranial abnormalities. 2. Moderate generalized volume loss, advanced for age. Mild chronic microvascular ischemic white matter changes. If the report is "FINALIZED" it indicates that the attending/staff radiologist has reviewed the images and agrees with the resident's interpretation. Dictated By: Jabari Alatorre MD, 02/19/2018 11:54 PM I have reviewed the study and agree with the findings in this report. Signed By: Maria R Mendes MD, 02/20/2018 12:06 AM Performing Organization Address [facility] Phone Number SMS * 12 LEAD EKG (02/19/2018 10:21 PM CDT) 12 LEAD EKG FOR [facility] Test Date:2018-02-19 Pat Name: LINDY FLEMING Department: Room: Gender: [employer] Custodian: :1961-0 5-07 Requested By: Order Number: Martha lieca MD: Gracie Avila Measurements Intervals [place] Rate: 121 P: 40 MI: 144 QRS: -38 QRSD: 74 T:53 QT: 336 QTc:478 Interpretive Statements SINUS TACHYCARDIA MARKED LEFT AXIS DEVIATION LOW QRS VOLTAGE IN PRECORDIAL LEADS PATTERN CONSISTENT WITH PULMONARY DISEASE Electronically Signed On 02-20-18 00:02:33 CDT by Gracie Avila Specimen Performing Organization Address [facility] Phone Number SMS * VBG POC (02/19/2018 9:39 PM CDT) pH, Sun POC 7.42 7.33 - 7.43 BT MAIN-STATION 1 pCO2, Sun POC 33.9 (L) 38.0 - 50.0 mm Hg BT MAIN[facility]STATION 1 pO2, Sun POC 38 (L) 50 - 75 mm Hg BT MAIN-STATION 1 Base Deficit, 2 BT MAIN[facility]ATION Sun POC 1 HCO3, Sun POC 22.2 22.0 - 26.0 mmol/L BT MAIN-STATION 1 % Sat, Sun POC 74 60 - 85 % BT MAIN[facility]STATION 1 Lactic Acid, 1.86 0.4 - 2.0 mmol/L BT MAIN[facility]STATION Sun POC 1 TCO2, SUN POC 23 21 - 32 mmol/L BT [facility]STATION 1 Specimen Performing Organization Address [facility] Phone Number [facility] BT MAIN-STATION 1 * TROPONIN I POC (02/19/2018 9:38 PM CDT) Troponin POC 0.01 0.00 - 0.08 ng/mL BT MAIN-STATION 1 Specimen Performing Organization Address [facility] Phone Number [facility] BT MAIN-STATION 1 * HIV-1/HIV-2 ROUTINE SCREENING (02/19/2018 9:30 PM CDT) HIV-1/HIV-2 Negative NEG BT MAIN-STATION 4 Specimen Performing Organization Address [facility] Phone Number [facility] BT MAIN-STATION 4 * SALICYLATE (02/19/2018 9:30 PM CDT) Salicylate <2.5 (L)Comment: Test 2.8 - 30 mg/dL BT MAIN-STATION performed on [id number] using EMIT 1 Immunoassay Specimen Blood Performing Organization Address [facility] Phone Number [facility] BT MAIN-STATION 1 * HEPATITIS PANEL (02/19/2018 9:30 PM CDT) HCV IgG Negative NEG BT MAIN-STATION 4 HBsAg Negative NEG BT MAIN-STATION 4 HAV, IgM Negative NEG BT MAIN-STATION 4 HBcAb, IgM Negative NEG BT MAIN-STATION 4 Specimen Blood Performing Organization Address [facility] Phone Number [facility] BT MAIN-STATION 4 * ALCOHOL, MEDICAL USE ONLY (02/19/2018 9:30 PM CDT) Alcohol <0.010 <0.1 g/dL BT MAIN-STATION 1 Specimen Blood Performing Organization Address [facility] Phone Number [facility] BT MAIN-STATION 1 * ACETAMINOPHEN (02/19/2018 9:30 PM CDT) Acetaminophen <10.00 (L)Comment: Test 10 - 30 ug/mL BT MAIN-STATION performed on [id number] using EMIT 1 Immunoassay Specimen Blood Performing Organization Address [facility] Phone Number [facility] BT MAIN-STATION 1 * URINE DRUG SCREEN (02/19/2018 6:55 AM CDT) Amphetamine Negative NEG BT MAIN-STATION Comment: 1 Calibrated Standard: D-Methamphetamine Positive if urine level >ju=0380 ng/mL Test performed on [id number] using EMIT Immunoassay Barbiturate Negative NEG BT MAIN-STATION Comment: 1 Calibrated Standard: Secobarbital Positive if urine level is >jo=673 ng/mL Test performed on [id number] using EMIT Immunoassay Benzodiazepine Positive (A) NEG BT MAIN-STATION Comment: 1 Calibrated Standard: Lormethazepam Positive if urine level is >sq=854 ng/mL Test performed on [id number] using EMIT Immunoassay Cannabinoid Negative NEG BT MAIN-STATION Comment: 1 Calibrated Standard: 11 nor-delta(9)-THC carboxylic a Positive if urine level >or=50 Test performed on [id number] using EMIT Immunoassay Cocaine Negative NEG [facility] Comment: 1 Calibrated Standard: Benzoylecgonine Positive if urine level >ag=174 Test performed on [id number] using EMIT Immunoassay Opiate, Ur Negative NEG BT [facility] Comment: 1 Calibrated Standard: Morphine Positive if urine level >st=969 Test performed on [id number] using EMIT Immunoassay PCP Negative NEG [facility] Comment: 1 Calibrated Standard: Phencyclidine Positive if urine level >or=25 Test performed on [id number] using EMIT Immunoassay Urine Toxicology Screen results are to be used only for Medical purposes. Specimen Urine Performing Organization Address City/State/Zipcode Phone Number [facility] 1 after 01/06/2018 Insurance Type Payer Benefit Subscriber ID Effective Phone Address Plan / Dates Group [place] [employer] [place] x[place] 2018- [phone] [address] [place] /01/2019 [id number] PLANNING [place], [place] [id number] [employer] xxxxxxx 2018 [address] [place] [address] Advance Directives Date Inactivated Comments Code Status Date Activated 02/21/2018 9:03 PM Full Code 02/20/2018 12:16 PM
--- OUTSIDE RECORDS SUMMARY | 2019-03-30 02:19 | XMS REPORT | Clinical Summary ---
Author Author [facility] Organization [facility] Address Unknown Phone Unavailable Care Team Providers Care Hog Man Name Role Phone PCP Unavailable Allergies No Known Allergies Current Medications Prescription Sig. Disp. Refills Start End Date Status Date gabapentin (NEURONTIN) Take 1 capsule by mouth 3 270 capsule 0 02/22/20 Active 300 mg times daily. 18 capsuleIndications: Alcohol withdrawal syndrome without complication chlordiazePOXIDE Take up to 2 tablets 12 capsule 0 02/22/20 Active (LIBRIUM) 25 mg daily as needed for 18 capsuleIndications: shaking and anxiety from Alcohol withdrawal alcohol withdrawal for 6 syndrome without days.. complication folic acid (FOLVITE) 1 mg Take 1 tablet by mouth 30 tablet 1 02/22/20 Active tabletIndications: daily. 18 Alcohol withdrawal syndrome without complication Active Problems Problem Noted Date Alcohol withdrawal syndrome without complication 02/20/2018 Alcohol withdrawal 02/20/2018 Fall 02/19/2018 Cervical spondylosis 05/25/2007 Tremors of nervous system Medication refill Uncomplicated alcohol dependence Resolved Problems Problem Noted Date Resolved Date Hallucinations 02/21/2018 Gait abnormality 02/21/2018 Encounters Date Type Specialty Care Team Description 02/23/2018 Pharmacy Visit 02/22/2018 Emergency Emergency Medicine Haider Cruz, Juan Miguel alcohol Physician dependence (Primary Dx); Medication refill 02/19/2018 [facility] Braden Conte MD Fall, subsequent - Encounter Jonn Bradley MD encounter (Primary Dx); 02/21/2018 Hallucinations; Tremors of nervous system; Alcohol withdrawal syndrome without complication after 02/28/2017 Family History Medical History Relation Name Comments Arthritis Father Cancer Father Heart Father Hypertension Father Diabetes Maternal Aunt Asthma Mother Diabetes Mother Hypertension Mother Relation Name Status Comments Father Maternal Aunt Mother (Age 64) Social History Tobacco Use Types Packs/Day Years Used Date Never Assessed Smokeless Tobacco: Chew Current User Comments: 1/2 pack per day Alcohol Use Drinks/Week oz/Week Comments Yes 6 Cans of 3.6 former ETOH abuse beer Sex Assigned at Date Recorded Not on file Last Filed Vital Signs Vital Sign Reading Time Taken Blood Pressure 137/68 02/22/2018 7:00 PM CDT Pulse 98 02/22/2018 7:00 PM CDT Temperature 37.4 C (99.3 F) 02/22/2018 7:00 PM CDT Respiratory Rate 18 02/22/2018 7:00 PM CDT Oxygen Saturation 96% 02/22/2018 7:00 PM CDT Inhaled Oxygen - - Concentration Weight 72.6 kg (160 lb) 02/20/2018 6:26 PM CDT Height 177.8 cm (5' 10") 02/20/2018 6:26 PM CDT Body Mass Index 22.96 02/20/2018 6:26 PM CDT Plan of Treatment Date Type Specialty Care Team Description 03/08/2018 Office Visit Family Practice Paola Stone MD [address] [place] [address] [phone] Health Maintenance Due Date Last Done Comments Colorectal Cancer Scrn 2010 Annual (FIT/FOBT) Age 50 to 75 IMM Influenza Seasonal 05/01/2018May to September (>/=19 yrs) Results * FOLIC ACID (02/21/2018 3:12 AM) Component Value Ref Range Folic Acid 4.9 (L) 5.9 - 24.8 ng/mL Specimen Performing Laboratory Blood MISYS * VITAMIN B12 (02/21/2018 3:12 AM) Component Value Ref Range Vitamin B12 183 (L) 211 - 911 pg/mL Specimen Performing Laboratory Blood MISYS * BASIC METABOLIC PANEL (02/21/2018 3:12 AM) Component Value Ref Range CO2 27 21 - 31 mmol/L Chloride 105 98 - 107 mmol/L Potassium 3.3 (L) 3.5 - 5.1 mmol/L Sodium 144 136 - 145 mmol/L Glucose 128 (H) 70 - 110 mg/dL Urea Nitrogen 8 7 - 25 mg/dL Creatinine 0.80 0.7 - 1.3 mg/dL Anion Gap 12 Calcium 8.1 (L) 8.6 - 10.3 mg/dL GFR, Estimated >60 mL/min/1.73 m2 GFR, Estim, Afr-Am >60 mL/min/1.73 m2 Specimen Performing Laboratory Blood MISYS * BMP POC (02/20/2018 7:56 AM) Only the most recent of 2 results within the time period is included. Component Value Ref Range CO2 POC 25 21 - 32 mmol/L Chloride POC 104 98 - 107 mmol/L Potassium POC 3.8 3.50 - 5.10 mmol/L Sodium POC 144 136 - 145 mmol/L Glucose POC 78 74 - 106 mg/dL Urea Nitrogen POC 15 7 - 18 mg/dL Creatinine POC 1.0 0.6 - 1.3 mg/dL Calcium Ionized POC 0.96 (L) 1.15 - 1.29 mmol/L Hemoglobin POC 12.9 (L) 14.0 - 18.0 g/dL Hematocrit POC 38.0 (L) 40.0 - 54.0 % GFR, Estimated >60 mL/min/1.73 m2 GFR, Estim, Afr-Am >60 mL/min/1.73 m2 Specimen Performing Laboratory MIS[facility] * CT HEAD W/O CONTRAST (02/19/2018 11:53 PM) Specimen Performing Laboratory SMS Impressions IMPRESSION: 1.No acute intracranial abnormalities. 2.Moderate generalized volume [...] R Mendes MD, 02/20/2018 12:06 AM Narrative Exam : Head CT without contrast History: [...] Maria R Mendes MD, 02/20/2018 12:06 AM * 12 LEAD EKG (02/19/2018 10:21 PM) Component Value Ref Range 12 LEAD EKG FOR [facility] Test Date:2018-02-19 Pat Name: LINDY FLEMINGDepartment: : Gender: [place] echnician: :1960 Requested By: Order Number: Fiorella SPANN: Gracie Avila Measurements Intervals [place] Rate: 121P: 40 MS: 144QRS :-38 QRSD: 74 T:53 QT: 336 QTc:478 Interpretive Statements SINUS TACHYCARDIA MARKED LEFT AXIS DEVIATION LOW QRS VOLTAGE IN PRECORDIAL LEADS PATTERN CONSISTENT WITH PULMONARY DISEASE Electronically Signed On 02-20-18 00:02:33 CDT by Gracie Avila Specimen Performing Laboratory SMS * VBG POC (02/19/2018 9:39 PM) Component Value Ref Range pH, Sun POC 7.42 7.33 - 7.43 pCO2, Sun POC 33.9 (L) 38.0 - 50.0 mm Hg pO2, Sun POC 38 (L) 50 - 75 mm Hg Base Deficit, Sun POC 2 HCO3, Sun POC 22.2 22.0 - 26.0 mmol/L % Sat, Sun POC 74 60 - 85 % Lactic Acid, Sun POC 1.86 0.4 - 2.0 mmol/L TCO2, SUN POC 23 21 - 32 mmol/L Specimen Performing Laboratory MIS[facility] * TROPONIN I POC (02/19/2018 9:38 PM) Component Value Ref Range Troponin POC 0.01 0.00 - 0.08 ng/mL Specimen Performing Laboratory MIS[facility] * HIV-1/HIV-2 ROUTINE SCREENING (02/19/2018 9:30 PM) Component Value Ref Range HIV-1/HIV-2 Negative NEG Specimen Performing Laboratory MISYS * SALICYLATE (02/19/2018 9:30 PM) Component Value Ref Range Salicylate <2.5 (L)Comment: Test performed on [id number] using 2.8 - 30 mg/dL EMIT Immunoassay Specimen Performing Laboratory Blood MISYS * LIVER PROFILE (02/19/2018 9:30 PM) Component Value Ref Range T Protein 6.8 6.0 - 8.3 g/dL Albumin 4.5 4.2 - 5.5 g/dL T Bilirubin 1.2 0.2 - 1.2 mg/dL Alk Phos 56 34 - 104 U/L AST 27 13 - 39 U/L ALT 20 7 - 52 U/L D Bilirubin 0.4 (H) 0.0 - 0.2 mg/dL Specimen Performing Laboratory Blood MISYS * HEPATITIS PANEL (02/19/2018 9:30 PM) Component Value Ref Range HCV IgG Negative NEG HBsAg Negative NEG HAV, IgM Negative NEG HBcAb, IgM Negative NEG Specimen Performing Laboratory Blood MISYS * CBC/DIFF (02/19/2018 9:30 PM) Component Value Ref Range WBC 10.3 4.5 - 12.0 K/uL RBC 3.61 (L) 4.60 - 6.20 M/uL Hemoglobin 12.9 (L) 14.0 - 18.0 g/dL Hematocrit 38.2 (L) 40.0 - 54.0 % MCV 106 (H) 82 - 92 fL MCH 35.7 (H) 27.0 - 31.0 pg MCHC 33.8 32.0 - 36.0 g/dL RDW 61.0 (H) 35.1 - 43.9 fL Platelet 174 150 - 400 K/uL Mean Platelet Volume 11.8 9.4 - 12.4 fL Percent NRBC 0.0 Absolute NRBC 0.00 Neutrophil 70.0 (H) 34.0 - 67.9 % Lymphocyte 13.0 (L) 21.8 - 50.0 % Monocyte 14.0 (H) 5.3 - 12.0 % Eosinophil 2.0 0.8 - 5.0 % Basophil 1.0 0.2 - 1.2 % Neutrophil, Abs 7.22 (H) 1.78 - 5.36 K/uL Lymphocyte, Abs 1.34 1.32 - 3.57 K/uL Monocyte, Abs 1.44 (H) 0.30 - 0.82 K/uL Eosinophil, Abs 0.21 0.04 - 0.54 K/uL Basophil, Abs 0.10 (H) 0.01 - 0.08 K/uL Specimen Performing Laboratory Blood MISYS * ALCOHOL (02/19/2018 9:30 PM) Component Value Ref Range Alcohol <0.010 <0.1 g/dL Specimen Performing Laboratory Blood MISYS * ACETAMINOPHEN (02/19/2018 9:30 PM) Component Value Ref Range Acetaminophen <10.00 (L)Comment: Test performed on [id number] using 10 - 30 ug/mL EMIT Immunoassay Specimen Performing Laboratory Blood MISYS * UA CHEMISTRIES (02/19/2018 6:55 AM) Component Value Ref Range Color Yellow Clarity Clear Spec [place] 1.025 1.001 - 1.035 pH 5.0 5 - 8 Protein 1+ (A) NEG Glucose Negative NEG Ketone 1+ (A) NEG Bilirubin Negative NEG Nitrate Negative NEG Urobilinogen 2.0 (H) 0.2 - 1.0 EU/dL Leukocyte Negative NEG Blood Negative NEG RBC 1 0 - 4 /HPF WBC 1 0 - 5 /HPF Epithelial Cell <1 /HPF Mucous Present Hyaline Cast 2 /LPF Specimen Performing Laboratory Urine MIS[facility] * URINE DRUG SCREEN (02/19/2018 6:55 AM) Component Value Ref Range Amphetamine Negative NEG Comment: Calibrated Standard: D-Methamphetamine Positive if urine level >on=2199 ng/mL Test performed on [id number] using EMIT Immunoassay Barbiturate Negative NEG Comment: Calibrated Standard: Secobarbital Positive if urine level is >ru=052 ng/mL Test performed on [id number] using EMIT Immunoassay Benzodiazepine Positive (A) NEG Comment: Calibrated Standard: Lormethazepam Positive if urine level is >ag=067 ng/mL Test performed on [id number] using EMIT Immunoassay Cannabinoid Negative NEG Comment: Calibrated Standard: 11 nor-delta(9)-THC carboxylic a Positive if urine level >or=50 Test performed on [id number] using EMIT Immunoassay Cocaine Negative NEG Comment: Calibrated Standard: Benzoylecgonine Positive if urine level >xn=257 Test performed on [id number] using EMIT Immunoassay Opiate, Ur Negative NEG Comment: Calibrated Standard: Morphine Positive if urine level >ds=485 Test performed on [id number] using EMIT Immunoassay PCP Negative NEG Comment: Calibrated Standard: Phencyclidine Positive if urine level >or=25 Test performed on [id number] using EMIT Immunoassay Urine Toxicology Screen results are to be used only for Medical purposes. Specimen Performing Laboratory Urine MISYS after 02/28/2017
--- OUTSIDE RECORDS SUMMARY | 2019-03-30 02:19 | XMS REPORT | Summary of Care ---
Author Organization Unknown Address Unknown Phone Unavailable Encounter HQ Encntr_alias(FIN) [id number] Date(s): 11/19/14 - 11/19/14 [facility] [address] [place] [address]- [phone] Discharge Disposition: Home Physician Attending: Evler Aguirre MD Physician_Referring: Elver Aguirre MD Vital Signs No data available for this section Problem List No data available for this section Allergies, Adverse Reactions, Alerts No data available for this section Medications No data available for this section Results No data available for this section Immunizations No data available for this section Procedures No data available for this section Social History No data available for this section Assessment and Plan No data available for this section
--- OUTSIDE RECORDS SUMMARY | 2019-03-30 02:19 | XMS REPORT | Clinical Summary ---
Author Author [facility] Organization [facility] Address Unknown Phone Unavailable Care Team Providers Care Injection Molding Supervisor Name Role Phone PCP Unavailable Allergies No [...] Cervical spondylosis 05/25/2007 Tremors of nervous system Resolved Problems Problem Noted Date Resolved Date Hallucinations 02/21/2018 Gait abnormality 02/21/2018 Encounters Date Type Specialty Care Team Description 02/19/2018 [facility] Braden Conte MD Fall, subsequent Encounter Jonn Bradley MD encounter (Primary Dx); Hallucinations; Tremors of nervous system; Alcohol withdrawal syndrome without complication after 02/20/2017 Family History Medical History Relation Name Comments [...] Vital Sign Reading Time Taken Blood Pressure 146/88 02/21/2018 3:50 PM CDT Pulse 79 02/21/2018 3:50 PM CDT Temperature 37 C (98.6 F) 02/21/2018 3:50 PM CDT Respiratory Rate 21 02/21/2018 3:50 PM CDT Oxygen Saturation 99% 02/21/2018 3:50 PM CDT Inhaled Oxygen - - Concentration Weight 72.6 kg (160 lb) 02/20/2018 6:26 PM CDT Height 177.8 cm (5' 10") 02/20/2018 6:26 PM CDT Body Mass Index 22.96 02/20/2018 6:26 PM CDT Plan of Treatment Date Type Specialty Care Team Description 03/08/2018 Office Visit Family Practice Paola Stone MD [address] [place] [phone] Health Maintenance Due Date Last Done Comments [...] Value Ref Range 12 LEAD EKG FOR [facility] Test Date:2018-02-19 Pat Name: LINDY FLEMINGDepartment: : Gender: ESEQUIEL echnician: :1960 Requested By: Order Number: Reading MD: Gracie Avila Measurements Intervals [place] Rate: 121P: 40 [place]: 144QRS :-38 QRSD: 74 T:53 QT: 336 [...] Range Salicylate <2.5 (L)Comment: Test performed on [id number] using 2.8 - 30 mg/dL EMIT Immunoassay [...] Range Acetaminophen <10.00 (L)Comment: Test performed on [id number] using 10 - 30 ug/mL EMIT Immunoassay Specimen Performing Laboratory Blood MISYS * UA CHEMISTRIES (02/19/2018 6:55 AM) Component Value Ref Range Color Yellow Clarity Clear Spec [place] 1.025 1.001 - 1.035 pH 5.0 5 [...] Calibrated Standard: D-Methamphetamine Positive if urine level >yg=5922 ng/mL Test performed on [id number] using EMIT Immunoassay Barbiturate Negative NEG Comment: Calibrated Standard: Secobarbital Positive if urine level is >cz=586 ng/mL Test performed on [id number] using EMIT Immunoassay Benzodiazepine Positive (A) NEG Comment: Calibrated Standard: Lormethazepam Positive if urine level is >om=037 ng/mL Test performed on [id number] using EMIT Immunoassay Cannabinoid Negative NEG Comment: Calibrated Standard: 11 nor-delta(9)-THC carboxylic a Positive if urine level >or=50 Test performed on [id number] using EMIT Immunoassay Cocaine Negative NEG Comment: Calibrated Standard: Benzoylecgonine Positive if urine level >zs=862 Test performed on [id number] using EMIT Immunoassay Opiate, Ur Negative NEG Comment: Calibrated Standard: Morphine Positive if urine level >rb=783 Test performed on [id number] using EMIT Immunoassay PCP Negative NEG Comment: Calibrated Standard: Phencyclidine Positive if urine level >or=25 Test performed on [id number] using EMIT Immunoassay Urine Toxicology Screen results are to be used only for Medical purposes. Specimen Performing Laboratory Urine MISYS after 02/20/2017
--- OUTSIDE RECORDS SUMMARY | 2019-03-30 02:19 | XMS REPORT | Continuity of Care Document ---
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 Role Phone [facility] Unavailable Unavailable Problems Problem Status Onset Date Classification Date Reported Comments Source Depression Active 03/08/2018 01/07/2019 [facility] Nasal congestion Active 03/08/2018 01/07/2019 [facility] Alcohol withdrawal syndrome without complication Active 02/20/2018 01/07/2019 [facility] Alcohol withdrawal Active 02/20/2018 01/07/2019 [facility] Fall Active 02/19/2018 01/07/2019 [facility] GAIT DISORDER Active 11/11/2014 [facility] 780.2 Active 08/09/2014 [facility] Cervical spondylosis Active 05/25/2007 01/07/2019 [facility] Tremors of nervous system Active 01/07/2019 [facility] Medication refill Active 01/07/2019 [facility] Uncomplicated alcohol dependence Active 01/07/2019 [facility] Vitamin B12 deficiency Active 01/07/2019 [facility] Folic acid deficiency Active 01/07/2019 [facility] Peripheral neuropathy Active 01/07/2019 [facility] Anemia Active 01/07/2019 [facility] Tobacco chew use Active 01/07/2019 [facility] Visual hallucinations Active 01/07/2019 [facility] Homeless Active 01/07/2019 [facility] Vitamin D deficiency Active 01/07/2019 [facility] Health care maintenance Active 01/07/2019 [facility] Insomnia, unspecified type Active 01/07/2019 [facility] Depression, unspecified depression type Active 01/07/2019 [facility] Anxiety Active 01/07/2019 [facility] Idiopathic peripheral neuropathy Active 01/07/2019 [facility] Abnormal EKG Active 01/07/2019 [facility] Healthcare maintenance Active 01/07/2019 [facility] Fall, subsequent encounter Active 01/07/2019 [facility] Hallucinations Active 01/07/2019 [facility] Gait abnormality Active 01/07/2019 [facility] Medications Medication Details Route Status Patient Instructions Ordering Provider Order Date Source ergocalciferol (VITAMIN D2) 50,000 unit capsule Take 1 capsule by mouth weekly For 3 months and then buy vitamin D3: 2000 units and take 1 tablet/day. Oral Active 03/10/2018 [facility] Ergocalciferol (Vitamin D2) 50,000 Unit Capsule Take 1 capsule by mouth weekly For 3 months and then buy vitamin D3: 2000 units and take 1 tablet/day. Oral Active 03/10/2018 [facility] cyanocobalamin (VITAMIN B-12) injection 1,000 mcg Intramuscular Active 03/08/2018 [facility] Cyanocobalamin (Vit B-12) 1,000 McG/Ml Injection Solution Intramuscular Active 03/08/2018 [facility] folic acid (FOLVITE) 1 mg tablet Take 1 tablet by mouth daily. Oral Active 03/08/2018 [facility] gabapentin (NEURONTIN) 600 mg tablet Take 1 tablet by mouth 3 times daily For anxiety. Oral Active 03/08/2018 [facility] mirtazapine (REMERON) 15 mg tablet Take 1 tablet by mouth at bedtime nightly For sleep. Oral Active 03/08/2018 [facility] PARoxetine (PAXIL) 10 mg tablet Take 1 tablet by mouth every morning For depression. Oral Active 03/08/2018 [facility] traZODone (DESYREL) 100 mg tablet Take 1 tablet by mouth at bedtime nightly For depression and sleep. Oral Active 03/08/2018 [facility] ciclesonide (ZETONNA) 37 mcg/actuation nasal HFA inhaler Use 1 [place] in each nostril daily For nasal congestion. Active 03/08/2018 [facility] gabapentin (NEURONTIN) 600 mg tablet Take 1 tablet by mouth 3 times daily For anxiety. Oral Active 03/08/2018 [facility] mirtazapine (REMERON) 15 mg tablet Take 1 tablet by mouth at bedtime nightly For sleep. Oral Active 03/08/2018 [facility] PARoxetine (PAXIL) 10 mg tablet Take 1 tablet by mouth every morning For depression. Oral Active 03/08/2018 [facility] ciclesonide (ZETONNA) 37 mcg/actuation nasal HFA inhaler Use 1 [place] in each nostril daily For nasal congestion. Active 03/08/2018 [facility] Folic Acid 1 Mg Tablet Take 1 tablet by mouth daily. Oral Active 03/08/2018 [facility] Gabapentin 600 Mg Tablet Neurontin 600 Mg Tablet Take 1 tablet by mouth 3 times daily For anxiety. Oral Active 03/08/2018 [facility] Mirtazapine 15 Mg Tablet Remeron 15 Mg Tablet Take 1 tablet by mouth at bedtime nightly For sleep. Oral Active 03/08/2018 [facility] Paroxetine 10 Mg Tablet Paxil 10 Mg Tablet Take 1 tablet by mouth every morning For depression. Oral Active 03/08/2018 [facility] Trazodone 100 Mg Tablet Take 1 tablet by mouth at bedtime nightly For depression and sleep. Oral Active 03/08/2018 [facility] Zetonna 37 McG/Actuation Nasal Hfa Inhaler Use 1 [place] in each nostril daily For nasal congestion. Active 03/08/2018 [facility] Gabapentin 300 Mg Capsule Take 1 capsule by mouth 3 times daily. Oral Active 02/21/2018 [facility] Chlordiazepoxide 25 Mg Capsule Take up to 2 tablets daily as needed for shaking and anxiety from alcohol withdrawal for 6 days.. Active 02/21/2018 [facility] Folic Acid 1 Mg Tablet Take 1 tablet by mouth daily. Oral No Longer Active 02/21/2018 [facility] gabapentin (NEURONTIN) 300 mg capsule Take 1 capsule by mouth 3 times daily. Oral Active 02/21/2018 [facility] chlordiazePOXIDE (LIBRIUM) 25 mg capsule Take up to 2 tablets daily as needed for shaking and anxiety from alcohol withdrawal for 6 days.. Active 02/21/2018 [facility] folic acid (FOLVITE) 1 mg tablet Take 1 tablet by mouth daily. Oral No Longer Active 02/21/2018 [facility] Allergies, Adverse Reactions, Alerts Substance Category Reaction Severity Reaction type Status Date Reported Comments Source Iodine Itching Medium Propensity to adverse reactions to drug Active 03/08/2018 [facility] Immunizations Immunization Date Given Site Status Last Updated Comments Source TDap (Tetanus Toxoid, Reduced Diphtheria Toxoid And Acellular Pertussis, Absorbed) 03/08/2018 Not Given Deferred: Patient Refused - pt has cold s/s today [facility] Tdap (Tetanus Toxoid, Reduced Diphtheria Toxoid And Acellular Pertussis, Absorbed) 03/08/2018 Not Given Deferred: Patient Refused - pt has cold s/s today [facility] Results Order Name Results Value Reference Range Date Interpretation Comments Source OCCULT BLOOD ICT <td ID="[id number]">Occult Blood ICT</td><td>Negative</td><td>NEG</td><td>[facility]</td><td ID="[id number]"/> Negative NEG 03/16/2018 [facility] BREANN BREANN Screen Negative NEG 03/13/2018 [facility] VIT D, 25-HYDROXY Vit D, 25-Hydroxy 10.4 30 - 100 03/10/2018 Vitamin D deficiency has been defined by the [place] of [employer] and
Endocrine Society guideline as a level of serum 25-OH Vitamin D less than 20
ng/mL. The Endocrine Society further defines Vitamin D insufficiency as a
level between 21 and 29 ng/mL and sufficiency as a level between 30 and 100
ng/mL.

[facility] VIT D, 25-HYDROXY Lab Interpretation Abnormal 03/10/2018 [facility] SED RATE Sed Rate 80 <20 mm/Hr 03/10/2018 [facility] SED RATE Lab Interpretation Abnormal 03/10/2018 [facility] HEMOGLOBIN A1C <td ID="[id number]">Hemoglobin A1c</td><td>5.3</td><td>4.3 - 6.1 %</td><td>BT DIAGNOSTIC IMMUNOLOGY</td><td ID="[id number]"/> 5.3 4.3 - 6.1 03/10/2018 [facility] HEMOGLOBIN A1C Est Average Gluc 105.4 03/10/2018 [facility] CBC/DIFF <td ID="[id number]">WBC</td><td><span style="flagData">12.6</span><span style="flagData"> (H)</span></td><td>4.5 - 12.0 K/uL</td><td>[facility]</td><td ID="[id number]"/> 12.6 4.5 - 12 03/10/2018 [facility] CBC/DIFF <td ID="[id number]">RBC</td><td><span style="flagData">3.88</span><span style="flagData"> (L)</span></td><td>4.60 - 6.20 M/uL</td><td>[facility]-STATION 2</td><td ID="[id number]"/> 3.88 4.60 - 6.20 03/10/2018 [facility] CBC/DIFF <td ID="[id number]">Hemoglobin</td><td>14.0</td><td>14.0 - 18.0 g/dL</td><td>BT [facility]IN-STATION 2</td><td ID="[id number]"/> 14.0 14 - 18 03/10/2018 [facility] CBC/DIFF <td ID="[id number]">Hematocrit</td><td>42.4</td><td>40.0 - 54.0 %</td><td>[facility]-STATION 2</td><td ID="[id number]"/> 42.4 40 - 54 03/10/2018 [facility] CBC/DIFF <td ID="[id number]">MCV</td><td><span style="flagData">109</span><span style="flagData"> (H)</span></td><td>82 - 92 fL</td><td>[facility]-STATION 2</td><td ID="[id number]"/> 109 82 - 92 03/10/2018 [facility] CBC/DIFF <td ID="[id number]">MCH</td><td><span style="flagData">36.1</span><span style="flagData"> (H)</span></td><td>27.0 - 31.0 pg</td><td>BT MAIN-STATION 2</td><td ID="[id number]"/> 36.1 27 - 31 03/10/2018 [facility] CBC/DIFF <td ID="[id number]">MCHC</td><td>33.0</td><td>32.0 - 36.0 g/dL</td><td>BT [facility]IN-STATION 2</td><td ID="[id number]"/> 33.0 32 - 36 03/10/2018 [facility] CBC/DIFF <td ID="[id number]">RDW</td><td><span style="flagData">58.4</span><span style="flagData"> (H)</span></td><td>35.1 - 43.9 fL</td><td>[facility]-STATION 2</td><td ID="[id number]"/> 58.4 35.1 - 43.9 03/10/2018 [facility] CBC/DIFF <td ID="[id number]">Platelets</td><td>219</td><td>150 - 400 K/uL</td><td>BT [facility]IN-STATION 2</td><td ID="[id number]"/> 219 150 - 400 03/10/2018 [facility] CBC/DIFF <td ID="[id number]">Mean Platelet Volume</td><td><span style="flagData">12.8</span><span style="flagData"> (H)</span></td><td>9.4 - 12.4 fL</td><td>BT MAIN-STATION 2</td><td ID="[id number]"/> 12.8 9.4 - 12.4 03/10/2018 [facility] CBC/DIFF Percent NRBC 0.0 03/10/2018 [facility] CBC/DIFF Absolute NRBC 0.00 03/10/2018 [facility] CBC/DIFF <td ID="[id number]">Neutrophils</td><td><span style="flagData">69.6</span><span style="flagData"> (H)</span></td><td>34.0 - 67.9 %</td><td>BT MAIN-STATION 2</td><td ID="[id number]"/> 69.6 34 - 67.9 03/10/2018 [facility] CBC/DIFF <td ID="[id number]">Lymphs</td><td><span style="flagData">15.6</span><span style="flagData"> (L)</span></td><td>21.8 - 50.0 %</td><td>BT MAIN-STATION 2</td><td ID="[id number]"/> 15.6 21.8 - 50 03/10/2018 [facility] CBC/DIFF <td ID="[id number]">Monocytes</td><td>11.5</td><td>5.3 - 12.0 %</td><td>BT [facility]IN-STATION 2</td><td ID="[id number]"/> 11.5 5.3 - 12 03/10/2018 [facility] CBC/DIFF <td ID="[id number]">Eos</td><td>2.3</td><td>0.8 - 5.0 %</td><td>[facility]ATION 2</td><td ID="[id number]"/> 2.3 0.8 - 5 03/10/2018 [facility] CBC/DIFF <td ID="[id number]">Basos</td><td>0.5</td><td>0.2 - 1.2 %</td><td>BT MAIN-STATION 2</td><td ID="[id number]"/> 0.5 0.2 - 1.2 03/10/2018 [facility] CBC/DIFF Immature Granulocytes 0.5 0.0 - 0.5 03/10/2018 [facility] CBC/DIFF Neutrophils (Absolute) 8.79 1.78 - 5.36 03/10/2018 [facility] CBC/DIFF Lymphs (Absolute) 1.97 1.32 - 3.57 03/10/2018 [facility] CBC/DIFF Monocytes(Absolute) 1.45 0.3 - 0.82 03/10/2018 [facility] CBC/DIFF Eos (Absolute) 0.29 0.04 - 0.54 03/10/2018 [facility] CBC/DIFF Baso (Absolute) 0.06 0.01 - 0.08 03/10/2018 [facility] CBC/DIFF Immature Grans (Abs) 0.06 0 - 0.03 03/10/2018 [facility] CBC/DIFF Lab Interpretation Abnormal 03/10/2018 [facility] RA FACTOR RA Factor <10 <14 IU/mL 03/10/2018 [facility] TSH <td ID="[id number]">TSH</td><td>1.73</td><td>0.57 - 3.74 uIU/mL</td><td>BT [facility]IN-STATION 1</td><td ID="[id number]"/> 1.73 0.57 - 3.74 03/10/2018 [facility] LIPID PROFILE <td ID="[id number]">Cholesterol</td><td><span>196</span>
<span style="allIndent"><span style="cellHeader">Comment: </span>
<span ID="[id number]" style="pre">REFERENCE RANGE:
Desirable: <200 mg/dL
Borderline: 200-240 mg/dL
High Risk: >240 mg/dL

</span></span></td><td>mg/dL</td><td>BT MAIN-STATION 1</td><td ID=&amp ;quot;[id number]"/> 196 03/10/2018 REFERENCE RANGE:
Desirable: <200 mg/dL
Borderline: 200-240 mg/dL
High Risk: >240 mg/dL

[facility] LIPID PROFILE <td ID="[id number]">Triglyceride</td><td><span>139</span>
<span style="allIndent"><span style="cellHeader">Comment: </span>
<span ID="[id number]" style="pre">REFERENCE RANGE:
Normal: <150 mg/dL
Borderline High: 150-199 mg/dL
High: 200-499 mg/dL
Very High: >rg=025 mg/dL

</span></span></td><td><150 mg/dL</td><td>BT MAIN-STATION 1</td><td ID="[id number]"/> 139 <150 03/10/2018 REFERENCE RANGE:
Normal: <150 mg/dL
Borderline High: 150-199 mg/dL
High: 200-499 mg/dL
Very High: >ic=344 mg/dL

[facility] LIPID PROFILE <td ID="[id number]">HDL</td><td><span>37</span>
<span style="allIndent"><span style="cellHeader">Comment: </span>
<span ID="[id number]" style="pre">Increased CHD risk: <40 mg/dL
Decreased CHD risk: >60 mg/dL

</span></span>&am p;lt;/td><td>mg/dL</td><td>BT MAIN-STATION 1</td><td ID="[id number]"/> 37 03/10/2018 Increased CHD risk: <40 mg/dL
Decreased CHD risk: >60 mg/dL

[facility] LIPID PROFILE <td ID="[id number]">LDL</td><td><span>131</span>
<span style="allIndent"><span style="cellHeader">Comment: </span>
<span ID="[id number]" style="pre">REFERENCE RANGE:
Optimal: <100 mg/dL
Near Optimal: 100-129 mg/dL
Borderline High: 130-159 mg/dL
High: 160-189 mg/dL
Very High: >lc=288 mg/dL

</span></span></td><td>mg/dL</td><td>BT MAIN-STATION 1</td><td ID="[id number]"/> 131 03/10/2018 REFERENCE RANGE:
Optimal: <100 mg/dL
Near Optimal: 100-129 mg/dL
Borderline High: 130-159 mg/dL
High: 160-189 mg/dL
Very High: >cf=174 mg/dL

[facility] LIVER PROFILE <td ID="[id number]">Protein, Total, Serum</td><td>7.1</td><td>6.0 - 8.3 g/dL</td><td>BT MAIN-STATION 1</td><td ID="[id number]"/> 7.1 6 - 8.3 03/10/2018 [facility] LIVER PROFILE <td ID="[id number]">Albumin</td><td>4.3</td><td>4.2 - 5.5 g/dL</td><td>BT MAIN-STATION 1</td><td ID="[id number]"/> 4.3 4.2 - 5.5 03/10/2018 [facility] LIVER PROFILE <td ID="[id number]">Bilirubin, Total</td><td>0.8</td><td>0.2 - 1.2 mg/dL</td><td>BT MAIN-STATION 1</td><td ID="[id number]"/> 0.8 0.2 - 1.2 03/10/2018 [facility] LIVER PROFILE <td ID="[id number]">Alkaline Phosphatase, S</td><td>72</td><td>34 - 104 U/L</td><td>BT MAIN-STATION 1</td><td ID="[id number]"/> 72 34 - 104 03/10/2018 [facility] LIVER PROFILE <td ID="[id number]">AST (SGOT)</td><td>17</td><td>13 - 39 U/L</td><td>BT MAIN-STATION 1</td><td ID="[id number]"/> 17 13 - 39 03/10/2018 [facility] LIVER PROFILE <td ID="[id number]">ALT</td><td>24</td><td>7 - 52 U/L</td><td>BT MAIN-STATION 1</td><td ID="[id number]"/> 24 7 - 52 03/10/2018 [facility] LIVER PROFILE <td ID="[id number]">D Bilirubin</td><td>0.2</td><td>0.0 - 0.2 mg/dL</td><td>BT MAIN-STATION 1</td><td ID="[id number]"/> 0.2 0 - 0.2 03/10/2018 [facility] PSA Prostate Specific Ag, Serum 0.80 <4.1 03/10/2018 [facility] UA CHEMISTRIES <td ID="[id number]">Color</td><td>Yellow</td><td/><td>BT [facility]IN-STATION 3</td><td ID="[id number]"/> Yellow 03/09/2018 [facility] UA CHEMISTRIES Clarity Clear 03/09/2018 [facility] UA CHEMISTRIES <td ID="[id number]">Specific [place]</td><td>1.025</td><td>1.001 - 1.035</td><td>BT MAIN-STATION 3</td><td ID="[id number]"/> 1.025 1.001 - 1.035 03/09/2018 [facility] UA CHEMISTRIES <td ID="Bowspb635784977Arxq1Sfat">pH</td><td>5.0</td><td>5 - 8</td><td>BT MAIN-STATION 3</td><td ID="[id number]"/> 5.0 5 - 8 03/09/2018 [facility] UA CHEMISTRIES <td ID="[id number]">Protein</td><td><span style="flagData">1+</span><span style="flagData"> (A)</span></td><td>NEG</td><td>BT MAIN-STATION 3</td><td ID=&quot ;[id number]"/> 1+ NEG 03/09/2018 [facility] UA CHEMISTRIES <td ID="[id number]">Glucose</td><td>Negative</td><td>NEG</td><td>BT MAIN-STATION 3</td><td ID="[id number]"/> Negative NEG 03/09/2018 [facility] UA CHEMISTRIES <td ID="[id number]">Ketones</td><td><span style="flagData">Trace</span><span style="flagData"> (A)</span></td><td>NEG</td><td>BT MAIN-STATION 3</td><td ID=&q uot;[id number]"/> Trace NEG 03/09/2018 [facility] UA CHEMISTRIES <td ID="[id number]">Bilirubin</td><td>Negative</td><td>NEG</td><td>BT MAIN-STATION 3</td><td ID="[id number]"/> Negative NEG 03/09/2018 [facility] UA CHEMISTRIES <td ID="[id number]">Nitrate</td><td>Negative</td><td>NEG</td><td>BT MAIN-STATION 3</td><td ID="[id number]"/> Negative NEG 03/09/2018 [facility] UA CHEMISTRIES <td ID="[id number]">Urobilinogen,Semi- Qn</td><td><1.0</td><td>0.2 - 1.0 EU/dL</td><td>BT MAIN-STATION 3</td><td ID="[id number]"/> <1.0 0.2 - 1 03/09/2018 [facility] UA CHEMISTRIES <td ID="[id number]">Leukocyte</td><td>Negative</td><td>NEG</td><td>BT MAIN-STATION 3</td><td ID="[id number]"/> Negative NEG 03/09/2018 [facility] UA CHEMISTRIES Occult Blood Negative NEG 03/09/2018 [facility] UA CHEMISTRIES RBC 1 0 - 4 03/09/2018 [facility] UA CHEMISTRIES WBC <1 0 - 5 03/09/2018 [facility] UA CHEMISTRIES Epithelial Cell <1 /HPF 03/09/2018 [facility] UA CHEMISTRIES Mucous Present 03/09/2018 [facility] UA CHEMISTRIES Lab Interpretation Abnormal 03/09/2018 [facility] URINE CULTURE Culture No growth 2 days BT MICROBIOLOGY 03/09/2018 [facility] URINE CULTURE Culture No growth 2 days BT MICROBIOLOGY 03/09/2018 [facility] 12 LEAD EKG 12 LEAD EKG FOR [facility] Test Date:2018-03-08 Pat Name: LINDY AQUINODepartment: : Gender: MTechnician: :[id number] Requested By: Order Number:Fiorella MD: Krissy Pritchett M.D. Measurements IntervalsAxis Rate: 106P:57 [place]: 136QRS:-46 QRSD: 78 T:57 QT: 330 QTc:438 Interpretive Statements SINUS TACHYCARDIA POSSIBLE LEFT ATRIAL ENLARGEMENT LEFT ANTERIOR FASCICULAR BLOCK Electronically Signed On 03-08-18 17:56:49 CDT by Krissy Pritchett M.D. 03/08/2018 [facility] VITAMIN B12 Vitamin B12 183 211 - 911 02/21/2018 [facility] VITAMIN B12 Lab Interpretation Abnormal 02/21/2018 [facility] FOLIC ACID Folic Acid 4.9 5.9 - 24.8 02/21/2018 [facility] FOLIC ACID Lab Interpretation Abnormal 02/21/2018 [facility] BASIC METABOLIC PANEL <td ID="[id number]">CO2</td><td>27</td><td>21 - 31 mmol/L</td><td>BT MAIN-STATION 1</td><td ID="[id number]"/> 27 21 - 31 02/21/2018 [facility] BASIC METABOLIC PANEL <td ID="[id number]">Chloride</td><td>105</td><td>98 - 107 mmol/L</td><td>BT MAIN-STATION 1</td><td ID="[id number]"/> 105 98 - 107 02/21/2018 [facility] BASIC METABOLIC PANEL <td ID="[id number]">Potassium</td><td><span style="flagData">3.3</span><span style="flagData"> (L)</span></td><td>3.5 - 5.1 mmol/L</td><td>BT MAIN-STATION 1</td><td ID="[id number]"/> 3.3 3.5 - 5.1 02/21/2018 [facility] BASIC METABOLIC PANEL <td ID="[id number]">Sodium</td><td>144</td><td>136 - 145 mmol/L</td><td>BT MAIN-STATION 1</td><td ID="[id number]"/> 144 136 - 145 02/21/2018 [facility] BASIC METABOLIC PANEL <td ID="[id number]">Glucose</td><td><span style="flagData">128</span><span style="flagData"> (H)</span></td><td>70 - 110 mg/dL</td><td>BT MAIN-STATION 1</td><td ID="[id number]"/> 128 70 - 110 02/21/2018 [facility] BASIC METABOLIC PANEL <td ID="[id number]">BUN</td><td>8</td><td>7 - 25 mg/dL</td><td>BT MAIN-STATION 1</td><td ID="[id number]"/> 8 7 - 25 02/21/2018 [facility] BASIC METABOLIC PANEL <td ID="[id number]">Creatinine</td><td>0.80</td><td>0.7 - 1.3 mg/dL</td><td>BT MAIN-STATION 1</td><td ID="[id number]"/> 0.80 0.7 - 1.3 02/21/2018 [facility] BASIC METABOLIC PANEL Anion Gap 12 02/21/2018 [facility] BASIC METABOLIC PANEL <td ID="[id number]">Calcium</td><td><span style="flagData">8.1</span><span style="flagData"> (L)</span></td><td>8.6 - 10.3 mg/dL</td><td>BT MAIN-STATION 1</td><td ID="[id number]"/> 8.1 8.6 - 10.3 02/21/2018 [facility] BASIC METABOLIC PANEL GFR, Estimated >60 mL/min/1.73 m2 02/21/2018 [facility] BASIC METABOLIC PANEL eGFR If Africn Am >60 mL/min/1.73 m2 02/21/2018 [facility] BASIC METABOLIC PANEL Lab Interpretation Abnormal 02/21/2018 [facility] BASIC METABOLIC PANEL CO2 27 21 - 31 02/21/2018 [facility] BASIC METABOLIC PANEL Chloride 105 98 - 107 02/21/2018 [facility] BASIC METABOLIC PANEL Potassium 3.3 3.5 - 5.1 02/21/2018 Low [facility] BASIC METABOLIC PANEL Sodium 144 136 - 145 02/21/2018 [facility] BASIC METABOLIC PANEL Glucose 128 70 - 110 02/21/2018 High [facility] BASIC METABOLIC PANEL Urea Nitrogen 8 7 - 25 02/21/2018 [facility] BASIC METABOLIC PANEL Creatinine 0.80 0.7 - 1.3 02/21/2018 [facility] BASIC METABOLIC PANEL Anion Gap 12 02/21/2018 [facility] BASIC METABOLIC PANEL Calcium 8.1 8.6 - 10.3 02/21/2018 Low [facility] BASIC METABOLIC PANEL GFR, Estimated >60 mL/min/1.73 m2 02/21/2018 [facility] BASIC METABOLIC PANEL GFR, Estim, Afr-Am >60 mL/min/1.73 m2 02/21/2018 [facility] BASIC METABOLIC PANEL Lab Interpretation Abnormal 02/21/2018 [facility] FOLIC ACID Folic Acid 4.9 5.9 - 24.8 02/21/2018 Low [facility] FOLIC ACID Lab Interpretation Abnormal 02/21/2018 [facility] VITAMIN B12 Vitamin B12 183 211 - 911 02/21/2018 Low [facility] VITAMIN B12 Lab Interpretation Abnormal 02/21/2018 [facility] URINE DRUG SCREEN <td ID="[id number]">Amphetamine</td><td><span>Negative</span>
<span style="allIndent"><span style="cellHeader">Comment: </span>
<span ID="[id number]" style="pre">Calibrated Standard: D- Methamphetamine
Positive if urine level >iu=4724 ng/mL
Test performed on [id number] using EMIT Immunoassay

</span></span></td><td>NEG</td><td>BT MAIN-STATION 1</td><td ID="[id number]"/> Negative NEG 02/20/2018 Calibrated Standard: D-Methamphetamine
Positive if urine level >lz=0515 ng/mL
Test performed on [id number] using EMIT Immunoassay

[facility] URINE DRUG SCREEN <td ID="[id number]">Barbiturate</td><td><span>Negative</span>
<span style="allIndent"><span style="cellHeader">Comment: </span>
<span ID="[id number]" style="pre">Calibrated Standard: Secobarbital
Positive if urine level is >lv=865 ng/mL
Test performed on [id number] using EMIT Immunoassay

</span></span></td><td>NEG</td><td>BT MAIN-STATION 1</td><td ID="[id number]"/> Negative NEG 02/20/2018 Calibrated Standard: Secobarbital
Positive if urine level is >gn=424 ng/mL
Test performed on [id number] using EMIT Immunoassay

[facility] URINE DRUG SCREEN <td ID="[id number]">Benzodiazepine</td><td><span style="flagData">Positive</span><span style="flagData"> (A)</span>
<span style="allIndent"><span style="cellHeader">Comment: </span>
<span ID="[id number]" style="pre">Calibrated Standard: Lormethazepam
Positive if urine level is >hm=125 ng/mL
Test performed on [id number] using EMIT Immunoassay

</span></span&g t;</td><td>NEG</td><td>BT MAIN-STATION 1</td><td ID="[id number]"/> Positive NEG 02/20/2018 Calibrated Standard: Lormethazepam
Positive if urine level is >en=237 ng/mL
Test performed on [id number] using EMIT Immunoassay

[facility] URINE DRUG SCREEN <td ID="[id number]">Cannabinoid</td><td><span>Negative</span>
<span style="allIndent"><span style="cellHeader">Comment: </span>
<span ID="[id number]" style="pre"> Calibrated Standard: 11 nor-delta(9)-THC carboxylic a
Positive if urine level >or=50
Test performed on [id number] using EMIT Immunoassay

</span></span></td><td>NEG</td><td>BT MAIN-STATION 1</td><td ID="[id number]"/> Negative NEG 02/20/2018 Calibrated Standard: 11 nor-delta(9)-THC carboxylic a
Positive if urine level >or=50
Test performed on [id number] using EMIT Immunoassay

[facility] URINE DRUG SCREEN <td ID="[id number]">Cocaine</td><td><span>Negative</span>
<span style="allIndent"><span style="cellHeader">Comment: </span>
<span ID="[id number]" style="pre"> Calibrated Standard: Benzoylecgonine
Positive if urine level >dm=093
Test performed on [id number] using EMIT Immunoassay

</span></span></td><td>NEG</td><td>BT MAIN-STATION 1</td><td I D="[id number]"/> Negative NEG 02/20/2018 Calibrated Standard: Benzoylecgonine
Positive if urine level >ta=740
Test performed on [id number] using EMIT Immunoassay

[facility] URINE DRUG SCREEN <td ID="[id number]">Opiate, Ur</td><td><span>Negative</span>
<span style="allIndent"><span style="cellHeader">Comment: </span>
<span ID="[id number]" style="pre"> Calibrated Standard: Morphine
Positive if urine level >cx=400
Test performed on ZY1152 using EMIT Immunoassay

</span></span></td><td>NEG</td><td>BT MAIN-STATION 1</td><td ID="[id number]"/> Negative NEG 02/20/2018 Calibrated Standard: Morphine
Positive if urine level >zi=250
Test performed on [id number] using EMIT Immunoassay

[facility] URINE DRUG SCREEN <td ID="[id number]">PCP</td><td><span>Negative</span>
<span style="allIndent"><span style="cellHeader">Comment: </span>
<span ID="[id number]" style="pre"> Calibrated Standard: Phencyclidine
Positive if urine level >or=25
Test performed on [id number] using EMIT Immunoassay
Urine Toxicology Screen results are to be used only for Medical purposes.

</span></span></td><td>NEG</td><td>BT MAIN- STATION 1</td><td ID="[id number]"/> Negative NEG 02/20/2018 Calibrated Standard: Phencyclidine
Positive if urine level >or=25
Test performed on [id number] using EMIT Immunoassay
Urine Toxicology Screen results are to be used only for Medical purposes.

[facility] URINE DRUG SCREEN Lab Interpretation Abnormal 02/20/2018 [facility] POC CO2 POC 25 21 - 32 02/20/2018 [facility] POC Chloride POC 104 98 - 107 02/20/2018 [facility] POC Potassium POC 3.8 3.5 - 5.1 02/20/2018 [facility] POC Sodium POC 144 136 - 145 02/20/2018 [facility] POC <td ID="[id number]">Glucose POC</td><td>78</td><td>74 - 106 mg/dL</td><td>BT MAIN-STATION 1</td><td ID="[id number]"/> 78 74 - 106 02/20/2018 [facility] POC Urea Nitrogen POC 15 7 - 18 02/20/2018 [facility] POC Creatinine POC 1.0 0.6 - 1.3 02/20/2018 [facility] POC Calcium Ionized POC 0.96 1.15 - 1.29 02/20/2018 [facility] POC Hemoglobin POC 12.9 14 - 18 02/20/2018 [facility] POC Hematocrit POC 38.0 40 - 54 02/20/2018 [facility] POC GFR, Estimated >60 mL/min/1.73 m2 02/20/2018 [facility] POC GFR, Estim, Afr-Am >60 mL/min/1.73 m2 02/20/2018 [facility] POC Lab Interpretation Abnormal 02/20/2018 [facility] POC CO2 POC 25 21 - 32 02/20/2018 [facility] POC Chloride POC 104 98 - 107 02/20/2018 [facility] POC Potassium POC 3.8 3.5 - 5.1 02/20/2018 [facility] POC Sodium POC 144 136 - 145 02/20/2018 [facility] POC Glucose POC 78 74 - 106 02/20/2018 [facility] POC Urea Nitrogen POC 15 7 - 18 02/20/2018 [facility] POC Creatinine POC 1.0 0.6 - 1.3 02/20/2018 [facility] POC Calcium Ionized POC 0.96 1.15 - 1.29 02/20/2018 Low [facility] POC Hemoglobin POC 12.9 14 - 18 02/20/2018 Low [facility] POC Hematocrit POC 38.0 40 - 54 02/20/2018 Low [facility] POC GFR, Estimated >60 mL/min/1.73 m2 02/20/2018 [facility] POC GFR, Estim, Afr-Am >60 mL/min/1.73 m2 02/20/2018 [facility] POC Lab Interpretation Abnormal 02/20/2018 [place] [id number] LEAD EKG 12 LEAD EKG FOR [facility] Test Date:2018-02-19 Pat Name: LINDY AQUINODepartment: : Gender: MTechnician: :[id number] Requested By: Order Number:Fiorella MD: Gracie Avila Measurements IntervalsAxis Rate: 121P:40 [place]: 144QRS:-38 QRSD: 74 T:53 QT: 336 QTc:478 Interpretive Statements SINUS TACHYCARDIA MARKED LEFT AXIS DEVIATION LOW QRS VOLTAGE IN PRECORDIAL LEADS PATTERN CONSISTENT WITH PULMONARY DISEASE Electronically Signed On 02-20-18 00:02:33 CDT by Gracie Avila 02/20/2018 [facility] HEPATITIS PANEL <td ID="[id number]">HCV IgG</td><td>Negative</td><td>NEG</td><td>BT MAIN-STATION 4</td><td ID="[id number]"/> Negative NEG 02/20/2018 [facility] HEPATITIS PANEL <td ID="[id number]">HBsAg</td><td>Negative</td><td>NEG</td><td>BT MAIN-STATION 4</td><td ID="[id number]"/> Negative NEG 02/20/2018 [facility] HEPATITIS PANEL <td ID="[id number]">HAV, IgM</td><td>Negative</td><td>NEG</td><td>BT MAIN-STATION 4</td><td ID="[id number]"/> Negative NEG 02/20/2018 [facility] HEPATITIS PANEL <td ID="[id number]">HBcAb, IgM</td><td>Negative</td><td>NEG</td><td>BT MAIN-STATION 4</td><td ID="[id number]"/> Negative NEG 02/20/2018 [facility] HIV-1/HIV-2 ROUTINE SCREENING <td ID="[id number]">HIV-1/HIV-2</td><td>Negative</td><td>NEG</td><td>BT MAIN-STATION 4</td><td ID="[id number]"/> Negative NEG 02/20/2018 [facility] ACETAMINOPHEN Acetaminophen <10.00 10 - 30 02/20/2018 Test performed on [id number] using EMIT Immunoassay [facility] ACETAMINOPHEN Lab Interpretation Abnormal 02/20/2018 [facility] ALCOHOL Alcohol <0.010 <0.1 g/dL 02/20/2018 [facility] ALCOHOL, MEDICAL USE ONLY Alcohol <0.010 <0.1 g/dL 02/20/2018 [facility] SALICYLATE Salicylate <2.5 2.8 - 30 02/20/2018 Test performed on [id number] using EMIT Immunoassay [facility] SALICYLATE Lab Interpretation Abnormal 02/20/2018 [facility] TROPONIN I POC Troponin POC 0.01 0 - 0.08 [facility] pH, [facility] P[facility] 7.42 7.33 - 7.43 02/20[facility] pCO2, [place] POC 33.9 38.0 - 50.0 02/20/2018 [facility] pO2, [place] POC 38 50 - 75 02/20/2018 [facility] POC Base Deficit, Misael POC 2 02/20/[facility] HCO3, [place] POC 22.2 22 - 26 02/20/2018 [facility] POC % Sat, Misael POC 74 60 - 85 02/20/2018 [facility] POC Lactic Acid, Misael POC 1.86 0.4 - 2 02/20/2018 [facility] POC TCO2, MISAEL POC 23 21 - 32 02/20/2018 [facility] VBG POC Lab Interpretation Abnormal 02/20/2018 [facility] 12 LEAD EKG 12 LEAD EKG FOR [facility] Test Date:2018-02-19 Pat Name: LINDY AQUINODepartment: : Gender: MTechnician: :[id number] Requested By: Order Number:Reading MD: Gracie Avila Measurements IntervalsAxis Rate: 121P:40 [place]: 144QRS:-38 QRSD: 74 T:53 QT: 336 QTc:478 Interpretive Statements SINUS TACHYCARDIA MARKED LEFT AXIS DEVIATION LOW QRS VOLTAGE IN PRECORDIAL LEADS PATTERN CONSISTENT WITH PULMONARY DISEASE Electronically Signed On 02-20-18 00:02:33 CDT by Gracie Avila 02/19/2018 [facility] POC pH, Misael POC 7.42 7.33 - 7.43 02/19/2018 [facility] pCO2, Misael POC 33.9 mm Hg 38.0 - 50.0 02/19/2018 [facility] pO2, Misael POC 38 mm Hg 50 - 75 02/19/2018 Low [facility] VBG POC Base Deficit, Misael POC 2 02/19/2018 [facility] VBG POC HCO3, Misael POC 22.2 22 - 26 02/19/2018 [facility] VBG POC % Sat, Misael POC 74 60 - 85 02/19/2018 [facility] VBG POC Lactic Acid, Misael POC 1.86 0.4 - 2 02/19/2018 [facility]BG POC TCO2, MISAEL POC 23 21 - 32 02/19/2018 [facility] VBG POC Lab Interpretation Abnormal 02/19/2018 [facility] TROPONIN I POC Troponin POC 0.01 0 - 0.08 02/19/2018 [facility] ACETAMINOPHEN Acetaminophen <10.00 10 - 30 02/19/2018 Low Test performed on [id number] using EMIT Immunoassay [facility] ACETAMINOPHEN Lab Interpretation Abnormal 02/19/2018 [facility] ALCOHOL Alcohol <0.010 <0.1 g/dL 02/19/2018 [facility] CBC/DIFF WBC 10.3 4.5 - 12 02/19/2018 [facility] CBC/DIFF RBC 3.61 M/uL 4.60 - 6.20 02/19/2018 Low [facility] CBC/DIFF Hemoglobin 12.9 14 - 18 02/19/2018 [facility] CBC/DIFF Hematocrit 38.2 40 - 54 02/19/2018 [facility] CBC/DIFF MCV 106 82 - 92 02/19/2018 [facility] CBC/DIFF MCH 35.7 27 - 31 02/19/2018 [facility] CBC/DIFF MCHC 33.8 32 - 36 02/19/2018 [facility] CBC/DIFF RDW 61.0 35.1 - 43.9 02/19/2018 [facility] CBC/DIFF Platelet 174 150 - 400 02/19/2018 [facility] CBC/DIFF Mean Platelet Volume 11.8 9.4 - 12.4 02/19/2018 [facility] CBC/DIFF Percent NRBC 0.0 02/19/2018 [facility] CBC/DIFF Absolute NRBC 0.00 02/19/2018 [facility] CBC/DIFF Neutrophil 70.0 34 - 67.9 02/19/2018 [facility] CBC/DIFF Lymphocyte 13.0 21.8 - 50 02/19/2018 [facility] CBC/DIFF Monocyte 14.0 5.3 - 12 02/19/2018 [facility] CBC/DIFF Eosinophil 2.0 0.8 - 5 02/19/2018 [facility] CBC/DIFF Basophil 1.0 0.2 - 1.2 02/19/2018 [facility] CBC/DIFF Neutrophil, Abs 7.22 1.78 - 5.36 02/19/2018 High [facility] CBC/DIFF Lymphocyte, Abs 1.34 1.32 - 3.57 02/19/2018 [facility] CBC/DIFF Monocyte, Abs 1.44 0.3 - 0.82 02/19/2018 High [facility] CBC/DIFF Eosinophil, Abs 0.21 0.04 - 0.54 02/19/2018 [facility] CBC/DIFF Basophil, Abs 0.10 0.01 - 0.08 02/19/2018 High [facility] CBC/DIFF Lab Interpretation Abnormal 02/19/2018 [facility] HEPATITIS PANEL HCV IgG Negative NEG 02/19/2018 [facility] HEPATITIS PANEL HBsAg Negative NEG 02/19/2018 [facility] HEPATITIS PANEL HAV, IgM Negative NEG 02/19/2018 [facility] HEPATITIS PANEL HBcAb, IgM Negative NEG 02/19/2018 [facility] HIV-1/HIV-2 ROUTINE SCREENING HIV-1/HIV-2 Negative NEG 02/19/2018 [facility] LIVER PROFILE T Protein 6.8 6 - 8.3 02/19/2018 [facility] LIVER PROFILE Albumin 4.5 4.2 - 5.5 02/19/2018 [facility] LIVER PROFILE T Bilirubin 1.2 0.2 - 1.2 02/19/2018 [facility] LIVER PROFILE Alk Phos 56 34 - 104 02/19/2018 [facility] LIVER PROFILE AST 27 13 - 39 02/19/2018 [facility] LIVER PROFILE ALT 20 7 - 52 02/19/2018 [facility] LIVER PROFILE D Bilirubin 0.4 0 - 0.2 02/19/2018 High [facility] LIVER PROFILE Lab Interpretation Abnormal 02/19/2018 [facility] SALICYLATE Salicylate <2.5 2.8 - 30 02/19/2018 Low Test performed on [id number] using EMIT Immunoassay [facility] SALICYLATE Lab Interpretation Abnormal 02/19/2018 [facility] UA CHEMISTRIES Color Yellow 02/19/2018 [facility] UA CHEMISTRIES Clarity Clear 02/19/2018 [facility] UA CHEMISTRIES Spec [place] 1.025 1.001 - 1.035 02/19/2018 [facility] UA CHEMISTRIES pH 5.0 5 - 8 02/19/2018 [facility] UA CHEMISTRIES Protein 1+ NEG 02/19/2018 Abnormal [facility] UA CHEMISTRIES Glucose Negative NEG 02/19/2018 [facility] UA CHEMISTRIES Ketone 1+ NEG 02/19/2018 Abnormal [facility] UA CHEMISTRIES Bilirubin Negative NEG 02/19/2018 [facility] UA CHEMISTRIES Nitrate Negative NEG 02/19/2018 [facility] UA CHEMISTRIES Urobilinogen 2.0 0.2 - 1 02/19/2018 High [facility] UA CHEMISTRIES Leukocyte Negative NEG 02/19/2018 [facility] UA CHEMISTRIES Blood Negative NEG 02/19/2018 [facility] UA CHEMISTRIES RBC 1 /HPF 0 - 4 02/19/2018 [facility] UA CHEMISTRIES WBC 1 /HPF 0 - 5 02/19/2018 [facility] UA CHEMISTRIES Epithelial Cell <1 /HPF 02/19/2018 [facility] UA CHEMISTRIES Mucous Present 02/19/2018 [facility] UA CHEMISTRIES Hyaline Cast 2 /LPF 02/19/2018 [facility] UA CHEMISTRIES Lab Interpretation Abnormal 02/19/2018 [facility] URINE DRUG SCREEN Amphetamine Negative NEG 02/19/2018 Calibrated Standard: D-Methamphetamine
Positive if urine level >zg=4926 ng/mL
Test performed on [id number] using EMIT Immunoassay

[facility] URINE DRUG SCREEN Barbiturate Negative NEG 02/19/2018 Calibrated Standard: Secobarbital
Positive if urine level is >iu=730 ng/mL
Test performed on [id number] using EMIT Immunoassay

[facility] URINE DRUG SCREEN Benzodiazepine Positive NEG 02/19/2018 Abnormal Calibrated Standard: Lormethazepam
Positive if urine level is >rp=595 ng/mL
Test performed on [id number] using EMIT Immunoassay

[facility] URINE DRUG SCREEN Cannabinoid Negative NEG 02/19/2018 Calibrated Standard: 11 nor-delta(9)-THC carboxylic a
Positive if urine level >or=50
Test performed on [id number] using EMIT Immunoassay

[facility] URINE DRUG SCREEN Cocaine Negative NEG 02/19/2018 Calibrated Standard: Benzoylecgonine
Positive if urine level >pg=061
Test performed on [id number] using EMIT Immunoassay

[facility] URINE DRUG SCREEN Opiate, Ur Negative NEG 02/19/2018 Calibrated Standard: Morphine
Positive if urine level >sk=596
Test performed on [id number] using EMIT Immunoassay

[facility] URINE DRUG SCREEN PCP Negative NEG 02/19/2018 Calibrated Standard: Phencyclidine
Positive if urine level >or=25
Test performed on [id number] using EMIT Immunoassay
Urine Toxicology Screen results are to be used only for Medical purposes.

[facility] URINE DRUG SCREEN Lab Interpretation Abnormal 02/19/2018 [facility] Pathology Reports No Data Provided for This Section Diagnostic Reports Report Value Date Source CT HEAD W/O CONTRAST IMPRESSION:1.No acute intracranial abnormalities.2.Moderate generalized volume loss, advanced for age. Mild chronicmicrovascular ischemic white matter changes. If the report is "FINALIZED" it indicates that the attending/staffradiologist has reviewed the images and agrees with the resident'sinterpretation. Dictated By: Jabari Alatorre MD, 02/19/2018 11:54 PM I have reviewed the study and agree with the findings in this report. Signed By: Maria R Mendes MD, 02/20/2018 12:06 AM Exam : Head CT without contrastHistory: recent fall, hallucinations but no known underlying condition Comparison studies: None. Technique: Axial scans were obtained from skull base to the vertex.Coronal and sagittal reconstructions obtained from the axial data. IV Contrast: None Complications: None Radiation Dose: Total DLP: 787 mGy*cm.Estimated Effective Dose: DLP x 0.0021 mSv FINDINGS: Scalp/Skull:No abnormalities. Brain sulci: Moderately prominent.Ventricles: Moderate compensatory dilatation. No acute hydrocephalus. Extra-axial spaces:No masses or fluid collections. Parenchyma: Scattered hypodensities in the supratentorial white matter arenonspecific small vessel ischemic changes. No masses, hemorrhage or acute or chronic cortical insults Dural sinuses:No abnormal densities.Sellar/Suprasellar region: Intact.Skull base and Craniocervical junction: Intact . Interface, Rad/Mammog In - 02/20/2018 12:11 AM CDTExam : Head CT without contrast History: recent [...] Maria R Mendes MD, 02/20/2018 12:06 AM 02/20/[address] [facility] [address] HEAD W/O CONTRAST IMPRESSION:1.No acute intracranial abnormalities.2.Moderate generalized volume loss, advanced for age. Mild chronicmicrovascular ischemic white matter changes. If the report is "FINALIZED" it indicates that the attending/staffradiologist has reviewed the images and agrees with the resident'sinterpretation. Dictated By: Jabari Alatorre MD, 02/19/2018 11:54 PM I have reviewed the study and agree with the findings in this report. Signed By: Maria R Mendes MD, 02/20/2018 12:06 AM Exam : Head CT without contrastHistory: recent fall, hallucinations but no known underlying condition Comparison studies: None. Technique: Axial scans were obtained from skull base to the vertex.Coronal and sagittal reconstructions obtained from the axial data. IV Contrast: None Complications: None Radiation Dose: Total DLP: 787 mGy*cm.Estimated Effective Dose: DLP x 0.0021 mSv FINDINGS: Scalp/Skull:No abnormalities. Brain sulci: Moderately prominent.Ventricles: Moderate compensatory dilatation. No acute hydrocephalus. Extra-axial spaces:No masses or fluid collections. Parenchyma: Scattered hypodensities in the supratentorial white matter arenonspecific small vessel ischemic changes. No masses, hemorrhage or acute or chronic cortical insults Dural sinuses:No abnormal densities.Sellar/Suprasellar region: Intact.Skull base and Craniocervical junction: Intact . Interface, Rad/Mammog In - 02/20/2018 12:11 AM CDTExam : Head CT without contrast History: recent [...] Maria R Mendes MD, 02/20/2018 12:06 AM 02/19/2018 [facility] Spine cervical wo contrast MRI MRI CERVICAL SPINE WITHOUT CONTRAST INDICATION: Gait disorder COMPARISON: MRI cervical spine 06/03/2007 DISCUSSION: Alignment: There is grade 1 retrolisthesis at C5-C6 and C6-C7. This appearance is new since 2006. Craniocervical junction: No abnormalities. The foramen magnum is patent. Vertebral bodies: There are degenerative endplate signal changes at C5-C6 and C6-C7. The vertebral bodies are otherwise normal in height and signal from C2 through T3. Spinal cord: There is mass effect on the cord at C5-C6 and C6-C7. The cord is otherwise normal in signal and morphology. Soft tissues: No signal abnormalities are visualized. Disc spaces, foramina, and spinal canal: C2-C3 through C4-C5: The discs are normal in height and signal. There is no significant arthrosis. The spinal canal and foramina are patent. C5-C6: There is mild loss of disc height and grade 1 retrolisthesis. Disc osteophyte complex and buckling of the ligamentum flavum result in severe spinal canal stenosis and mild cord compression. The cord is grossly normal in signal. Bilateral uncovertebral and facet arthrosis contribute to severe bilateral foraminal stenosis. C6-C7: There is mild loss of disc height. Posterior disc osteophyte complex results in moderate to severe spinal canal stenosis and mild indentation of the ventral cord. Bilateral uncovertebral and facet arthrosis contribute to severe bilateral foraminal stenosis, right worse than left. C7-T1: The disc is normal in height and signal. There is no significant arthrosis. The spinal canal and foramina are patent. 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 There is mild cord compression at C5-C6 and indentation of the ventral cord at C6-C7. The cord is grossly normal in signal. There is severe bilateral foraminal stenosis at both levels. These findings are new/worse in comparison to the prior study from 2006. There is otherwise no significant spondylosis, spinal canal or foraminal stenosis of the cervical spine. SL: 16 11/19/2014 [facility] Consultation Notes No Data Provided for This Section Discharge Summaries No Data Provided for This Section History and Physicals No Data Provided for This Section Vital Signs Vital Sign Value Date Comments Source Systolic (mm Hg) 121 03/08/2018 [facility] Diastolic (mm Hg) 80 03/08/2018 [facility] Heart Rate 101 03/08/2018 [facility] Temperature Oral (F) 36.72 [place] 03/08/2018 [facility] Respitory Rate 20 03/08/2018 [facility] Height 175.3 cm 03/08/2018 [facility] Weight 77.565 03/08/2018 [facility] BMI Calculated 25.25 03/08/2018 [facility] Systolic (mm Hg) 137 02/23/2018 [facility] Diastolic (mm Hg) 68 02/23/2018 [facility] Heart Rate 98 02/23/2018 [facility] Temperature Oral (F) 37.39 [place] 02/23/2018 [facility] Respitory Rate 18 02/23/2018 [facility] Systolic (mm Hg) 146 02/21/2018 [facility] Diastolic (mm Hg) 88 02/21/2018 [facility] Heart Rate 79 02/21/2018 [facility] Temperature Oral (F) 37 [place] 02/21/2018 [facility] Respitory Rate 21 02/21/2018 [facility] Height 177.8 cm 02/20/2018 [facility] Weight 72.576 02/20/2018 [facility] BMI Calculated 22.96 02/20/2018 [facility] Encounters Location Location Details Encounter Type Encounter Number Reason For Visit Attending Provider ADM Date DC Date Status Source [facility] Outpatient [id number] Elver Aguirre 11/19/2014 11/20/2014 [facility] 4A Surgical Specialty Unit (4ASurg) BT Hospital Encounter [id number] Braden Conte MD 02/20/2018 02/21/2018 [facility] Emergency [id number] Haider Zavala 02/22/2018 02/23/2018 [facility] [place] [facility] [place] [id number] 02/23/2018 [facility] [place] Orders Only [id number] Paola Stone MD 03/08/2018 [facility] [place] Clinical Case Mgt [id number] Eunice Travis RN 03/08/2018 [facility] [place] Pharmacy Visit [id number] 03/08/2018 [facility] [place] Office Visit [id number] Paola Stone MD 03/08/2018 03/08/2018 [facility] [place] Telephone [id number] Paola Stone MD 03/10/2018 [facility] [place] Orders Only [id number] Paola Stone MD 03/10/2018 [facility] [place] Pharm[facility] Visit [id number] 03/13/2018 [facility] [place] [facility] Visit [id number] 03/14/2018 [facility] [place] [facility] Visit [id number] 03/17/2018 [facility] Nuclear Medicine BT Hospital Encounter [id number] Paola Stone MD 04/07/2018 04/07/2018 [facility] Travel [id number] 01/07/2019 [facility] Procedures Procedure Code Date Perfomer Comments Source OCCULT BLOOD ICT [id number] 03/10/2018 [facility] FECAL OCCULT BLOOD 17763 03/10/2018 [facility] URINE CULTURE 47391 03/09/2018 [facility] BREANN [id number] 03/09/2018 [facility] SED RATE 83591 03/09/2018 [facility] HEMOGLOBIN A1C 24470 03/09/2018 [facility] LIPID PROFILE 97093 03/09/2018 [facility] PSA 18005 03/09/2018 [facility] RA FACTOR [id number] 03/09/2018 [facility] TSH 09002 03/09/2018 [facility] VIT D, 25-HYDROXY 10334 03/09/2018 [facility] PROSTATE SPECIFIC ANTIGEN (PSA) 68748 03/09/2018 [facility] THYROID STIMULATING HORMONE (TSH) 95067 03/09/2018 [facility] CONSULT CLINICAL CASE MANAGEMENT (RN/SW) [id number] 02/23/2018 [facility] IP CONSULT WITH INSIGHT 73117 02/21/2018 [facility] VITAMIN B12 47056 02/21/[address] [facility] FOLIC ACID 53460 02/21/[address] [facility] BASIC METABOLIC PANEL 20957 02/21/[address] [facility] CT HEAD W/O CONTRAST 79768 02/20/2018 [facility] 12 LEAD EKG 90572 02/20/2018 [facility] [facility] VBG POC [id number] 02/20/2018 Unknown [facility] BMP POC [id number] 02/20/2018 Unknown [facility] TROPONIN I POC [id number] 02/20/2018 Unknown [facility] ALCOHOL [id number] 02/20/2018 [facility] SALICYLATE [id number] 02/20/2018 [facility] ACETAMINOPHEN [id number] 02/20/2018 [facility] CBC/DIFF [id number] 02/20/2018 [facility] HEPATITIS PANEL [id number] 02/20/2018 [facility] LIVER PROFILE [id number] 02/20/2018 [facility] HIV-1/HIV-2 ROUTINE SCREENING [id number] 02/20/2018 [facility] ALCOHOL, MEDICAL USE ONLY [id number] 02/20/2018 [facility] UA CHEMISTRIES [id number] 02/19/2018 [facility] URINE DRUG SCREEN [id number] 02/19/2018 [facility] URINALYSIS [id number] 02/19/2018 [facility] Assessment and Plan No Data Provided for This Section Plan of Care Plan of Care Date Source IMM Influenza Seasonal May to September (>/=19 yrs) 05/01/2019 [facility] Colorectal Cancer Scrn Annual (FIT/FOBT) Age 50 to 75 03/09/2019 [facility] Upcoming EncountersDateTypeSpecialtyCare TeamDescription 05/31/2018 [facility] [phone] (Fax) [facility] MaintenanceDu DateLast DoneComments IMM Influenza Seasonal Oct to September (>/=19 yrs) 05/01/2018 Colorectal Cancer Scrn Annual (FIT/FOBT) Age 50 to 75 03/09/2019 03/09/2018 05/29/2018 [facility] Upcoming EncountersDateTypeSpecialtyCare TeamDescription 05/31/2018 [facility] [phone] (Fax) [facility] DateLast DoneComments IMM Influenza Seasonal Oct to September (>/=19 yrs) 05/01/2018 Colorectal Cancer Scrn Annual (FIT/FOBT) Age 50 to 75 03/09/2019 03/09/2018 05/12/2018 [facility] IMM Influenza Seasonal May to September (>/=19 yrs) 05/01/2018 [facility] Upcoming EncountersDateTypeSpecialtyCare TeamDescription 05/31/2018 [facility] [phone] (Fax) [facility] MaintenanceDu DateLast DoneComments IMM Influenza Seasonal Oct to September (>/=19 yrs) 05/01/2018 Colorectal Cancer Scrn Annual (FIT/FOBT) Age 50 to 75 03/09/2019 03/09/2018 04/13/2018 [facility] Upcoming EncountersDateTypeSpecialtyCare TeamDescription 03/08/2018 Office Visit Family Practice Paola Stone MD[address] [phone] (Fax) Health MaintenanceDue DateLast DoneComments Colorectal Cancer Scrn Annual (FIT/FOBT) Age 50 to 75 2010 IMM Influenza Seasonal May to September (>/=19 yrs) 05/01/2018 03/08/2018 [facility] Upcoming EncountersDateTypeSpecialtyCare TeamDescription 03/08/2018 Office Visit [facility] Paola Stone MD[address] [phone] (Fax) [facility] DateLast DoneComments Colorectal Cancer Scrn Annual (FIT/FOBT) Age 50 to 75 2010 IMM Influenza Seasonal May to September (>/=19 yrs) 05/01/2018 03/06/2018 [facility] Upcoming EncountersDateTypeSpecialtyCare TeamDescription 03/08/2018 Office Visit [facility] Paola Stone MD[address] [phone] (Fax) [facility] DateLast DoneComments Colorectal Cancer Scrn Annual (FIT/FOBT) Age 50 to 75 2010 IMM Influenza Seasonal May to September (>/=19 yrs) 05/01/2018 03/01/2018 [facility] Upcoming EncountersDateTypeSpecialtyCare TeamDescription 03/08/2018 Office Visit [facility] Paola Stone MD[address] [phone] (Fax) [facility] DateLast DoneComments Colorectal Cancer Scrn Annual (FIT/FOBT) Age 50 to 75 2010 IMM Influenza Seasonal May to September (>/=19 yrs) 05/01/2018 02/21/2018 [facility] Colorectal Cancer Scrn Annual (FIT/FOBT) Age 50 to 75 2010 [facility] Social History Social History Date Source Tobacco UseTypesPacks/DayYears UsedDate Never Smoker Smokeless Tobacco: Current User Chew Tobacco Cessation: Ready to Quit: No; Counseling Given: Yes Comments: 1/2 pack per day Alcohol UseDrinks/Weekoz/WeekComments Yes 6 Cans of beer 3.6 former ETOH abuse Food InsecurityAnswerDate Recorded Within the past 12 months, you worried that your food would run out before you got money to buy more. Often true 03/08/2018 Within the past 12 months, the food you bought just didn't last and you didn't have money to get more. Often true 03/08/2018 Sex Assigned at BirthDate Recorded Not on file Job Start DateOccupationIndustry Not on file Not on file Not on file Travel HistoryTravel StartTravel End No recent travel history available. 01/03/2019 [facility] No data available for this section 11/20/2014 [facility] Family History Value Date Source Medical HistoryRelationNameComments Arthritis Father Cancer Father Heart Father Hypertension Father Diabetes Maternal Aunt Asthma Mother Diabetes Mother Hypertension Mother RelationNameStatusComments Father Maternal Aunt Mother (Age 64) 01/07/2019 [facility] Medical HistoryRelationNameComments Arthritis Father Cancer Father Heart Father Hypertension Father Diabetes Maternal Aunt Asthma Mother Diabetes Mother Hypertension Mother RelationNameStatusComments Father Maternal Aunt Mother (Age 64) 07/13/2018 [facility] Medical HistoryRelationNameComments Arthritis Father Cancer Father Heart Father Hypertension Father Diabetes Maternal Aunt Asthma Mother Diabetes Mother Hypertension Mother RelationNameStatusComments Father Maternal Aunt Mother (Age 64) 05/29/2018 [facility] Medical HistoryRelationNameComments Arthritis Father Cancer Father Heart Father Hypertension Father Diabetes Maternal Aunt Asthma Mother Diabetes Mother Hypertension Mother RelationNameStatusComments Father Maternal Aunt Mother (Age 64) 05/12/2018 [facility] Medical HistoryRelationNameComments Arthritis Father Cancer Father Heart Father Hypertension Father Diabetes Maternal Aunt Asthma Mother Diabetes Mother Hypertension Mother RelationNameStatusComments Father Maternal Aunt Mother (Age 64) 04/13/2018 [facility] Medical HistoryRelationNameComments Arthritis Father Cancer Father Heart Father Hypertension Father Diabetes Maternal Aunt Asthma Mother Diabetes Mother Hypertension Mother RelationNameStatusComments Father Maternal Aunt Mother (Age 64) 03/08/2018 [facility] Medical HistoryRelationNameComments Arthritis Father Cancer Father Heart Father Hypertension Father Diabetes Maternal Aunt Asthma Mother Diabetes Mother Hypertension Mother RelationNameStatusComments Father Maternal Aunt Mother (Age 64) 03/06/2018 [facility] Medical HistoryRelationNameComments Arthritis Father Cancer Father Heart Father Hypertension Father Diabetes Maternal Aunt Asthma Mother Diabetes Mother Hypertension Mother RelationNameStatusComments Father Maternal Aunt Mother (Age 64) 03/01/2018 [facility] Medical HistoryRelationNameComments Arthritis Father Cancer Father Heart Father Hypertension Father Diabetes Maternal Aunt Asthma Mother Diabetes Mother Hypertension Mother RelationNameStatusComments Father Maternal Aunt Mother (Age 64) 02/21/2018 [facility] Advance Directives Order Name Results Value Date Source Advance Directives Advance Directives Latest Code Status on FileCode StatusDate ActivatedDate InactivatedComments Full Code 02/20/2018 12:16 PM 02/21/2018 9:03 PM 01/07/2019 [facility] Advance Directives Advance Directives For more information, please contact:[address] [id number] Code Status on FileCode StatusDate ActivatedDate InactivatedComments Full Code 02/20/2018 12:16 PM 02/21/2018 9:03 PM 07/13/2018 [facility] Functional Status No Data Provided for This Section
--- OUTSIDE RECORDS SUMMARY | 2019-03-30 02:20 | XMS REPORT | Clinical Summary ---
Author Author [facility] Organization [facility] Address Unknown Phone Unavailable Care Team Providers Care Atg Architect Name Role Phone PCP Unavailable Allergies No [...] Physician dependence (Primary Dx); Medication refill 02/19/2018 [facility] Braden Conte MD Fall, subsequent - Encounter Jonn Bradley MD encounter (Primary Dx); 02/21/2018 Hallucinations; Tremors of nervous system; Alcohol withdrawal syndrome without complication after 03/05/2017 Family History Medical History Relation Name Comments [...] Office Visit Family Practice Paola Stone MD [address] [place] [address] [phone] Health Maintenance Due Date Last Done Comments [...] Value Ref Range [address] [facility] Test Date:2018-02-19 Pat Name: LINDY FLEMINGDepartment: : Gender: [place] echn[place]: :1960 Requested By: Order Number: Fiorella SPANN: Gracie Avila Measurements Intervals [place] Rate: 121P: 40 WI: 144QRS :-38 QRSD: 74 T:53 QT: 336 [...] Range Salicylate <2.5 (L)Comment: Test performed on [id number] using 2.8 - 30 mg/dL EMIT Immunoassay [...] Range Acetaminophen <10.00 (L)Comment: Test performed on [id number] using 10 - 30 ug/mL EMIT Immunoassay Specimen Performing Laboratory Blood MISYS * UA CHEMISTRIES (02/19/2018 6:55 AM) Component Value Ref Range Color Yellow Clarity Clear Spec [place] 1.025 1.001 - 1.035 pH 5.0 5 [...] Calibrated Standard: D-Methamphetamine Positive if urine level >jt=6849 ng/mL Test performed on [id number] using EMIT Immunoassay Barbiturate Negative NEG Comment: Calibrated Standard: Secobarbital Positive if urine level is >bt=393 ng/mL Test performed on [id number] using EMIT Immunoassay Benzodiazepine Positive (A) NEG Comment: Calibrated Standard: Lormethazepam Positive if urine level is >wr=889 ng/mL Test performed on [id number] using EMIT Immunoassay Cannabinoid Negative NEG Comment: Calibrated Standard: 11 nor-delta(9)-THC carboxylic a Positive if urine level >or=50 Test performed on [id number] using EMIT Immunoassay Cocaine Negative NEG Comment: Calibrated Standard: Benzoylecgonine Positive if urine level >ku=716 Test performed on [id number] using EMIT Immunoassay Opiate, Ur Negative NEG Comment: Calibrated Standard: Morphine Positive if urine level >ps=690 Test performed on [id number] using EMIT Immunoassay PCP Negative NEG Comment: Calibrated Standard: Phencyclidine Positive if urine level >or=25 Test performed on [id number] using EMIT Immunoassay Urine Toxicology Screen results are to be used only for Medical purposes. Specimen Performing Laboratory Urine MISYS after 03/05/2017
--- OUTSIDE RECORDS SUMMARY | 2019-03-30 02:20 | XMS REPORT | Clinical Summary ---
Author Author [facility] Organization [facility] Address Unknown Phone Unavailable Care Team Providers Care Maintenance Engineer Name Role Phone PCP Unavailable Allergies No [...] Physician dependence (Primary Dx); Medication refill 02/19/2018 [facility] Braden Conte MD Fall, subsequent - Encounter Jonn Bradley MD encounter (Primary Dx); 02/21/2018 Hallucinations; Tremors of nervous system; Alcohol withdrawal syndrome without complication after 03/07/2017 Family History Medical History Relation Name Comments [...] Office Visit Family Practice Paola Stone MD [address] [place] [address] [phone] Health Maintenance Due Date Last Done Comments [...] Value Ref Range 12 LEAD EKG FOR [facility] Test Date:2018-02-19 Pat Name: LINDY FLEMINGDepartment: : Gender: [place] echn[place]: :1960 Requested By: Order Number: Fiorella SPANN: Gracie Avila Measurements Intervals [place] Rate: 121P: 40 NE: 144QRS :-38 QRSD: 74 T:53 QT: 336 [...] Range Salicylate <2.5 (L)Comment: Test performed on [id number] using 2.8 - 30 mg/dL EMIT Immunoassay [...] Range Acetaminophen <10.00 (L)Comment: Test performed on [id number] using 10 - 30 ug/mL EMIT Immunoassay Specimen Performing Laboratory Blood MISYS * UA CHEMISTRIES (02/19/2018 6:55 AM) Component Value Ref Range Color Yellow Clarity Clear Spec [place] 1.025 1.001 - 1.035 pH 5.0 5 [...] Calibrated Standard: D-Methamphetamine Positive if urine level >ay=6617 ng/mL Test performed on [id number] using EMIT Immunoassay Barbiturate Negative NEG Comment: Calibrated Standard: Secobarbital Positive if urine level is >sc=956 ng/mL Test performed on [id number] using EMIT Immunoassay Benzodiazepine Positive (A) NEG Comment: Calibrated Standard: Lormethazepam Positive if urine level is >lg=984 ng/mL Test performed on [id number] using EMIT Immunoassay Cannabinoid Negative NEG Comment: Calibrated Standard: 11 nor-delta(9)-THC carboxylic a Positive if urine level >or=50 Test performed on [id number] using EMIT Immunoassay Cocaine Negative NEG Comment: Calibrated Standard: Benzoylecgonine Positive if urine level >os=993 Test performed on [id number] using EMIT Immunoassay Opiate, Ur Negative NEG Comment: Calibrated Standard: Morphine Positive if urine level >qq=048 Test performed on [id number] using EMIT Immunoassay PCP Negative NEG Comment: Calibrated Standard: Phencyclidine Positive if urine level >or=25 Test performed on [id number] using EMIT Immunoassay Urine Toxicology Screen results are to be used only for Medical purposes. Specimen Performing Laboratory Urine MISYS after 03/07/2017
--- OUTSIDE RECORDS SUMMARY | 2019-03-30 02:20 | XMS REPORT | Clinical Summary ---
Author Author [facility] Organization [facility] Address Unknown Phone Unavailable Care Team Providers Care Space Scheduler Name Role Phone Paola Stone MD PCP Allergies Active Allergy Reactions Severity Noted Date Comments Iodine Itching Medium 03/08/2018 From cat scan dye Current Medications Prescription Sig. Disp. Refills Start [...] 1 mg Take 1 tablet by mouth 90 tablet 3 03/08/20 Active tabletIndications: Folic daily. 18 acid deficiency gabapentin (NEURONTIN) Take 1 tablet by mouth 3 90 tablet 1 03/08/20 Active 600 mg tabletIndications: times daily For anxiety. 18 Anxiety, Idiopathic peripheral neuropathy mirtazapine (REMERON) 15 Take 1 tablet by mouth at 30 tablet 2 03/08/20 Active mg tabletIndications: bedtime nightly For 18 Insomnia, unspecified sleep. type PARoxetine (PAXIL) 10 mg Take 1 tablet by mouth 90 tablet 0 03/08/20 Active tabletIndications: every morning For 18 Depression, unspecified depression. depression type traZODone (DESYREL) 100 Take 1 tablet by mouth at 30 tablet 2 03/08/20 Active mg tabletIndications: bedtime nightly For 18 Insomnia, unspecified depression and sleep. type, Depression, unspecified depression type ciclesonide (ZETONNA) 37 Use 1 [place] in each 6.1 g 2 03/08/20 Active mcg/actuation nasal HFA nostril daily For nasal 18 inhalerIndications: Nasal congestion. congestion ergocalciferol (VITAMIN Take 1 capsule by mouth 12 capsule 0 03/10/20 Active D2) 50,000 unit weekly For 3 months and 18 capsuleIndications: then buy vitamin D3: Vitamin D deficiency 2000 units and take 1 tablet/day. folic acid (FOLVITE) 1 mg Take 1 tablet by mouth 30 tablet 1 02/22/20 03/08/20 Discontin tabletIndications: daily. 18 18 ued Alcohol withdrawal syndrome without complication Hospital, Clinic, or Ordered Dose Route Frequency Start End Date Status Other Facility Date Administered Medication cyanocobalamin (VITAMIN 1000 mcg IM EVERY 28 DAYS 03/08/20 02/08/20 Active B-12) injection 1,000 18 19 mcgIndications: Vitamin B12 deficiency Active Problems Problem [...] Encounters Date Type Specialty Care Team Description 04/06/2018 Hospital Radiology Paola Stone MD No Show Encounter 03/17/2018 Pharmacy Visit 03/14/2018 Pharmacy Visit 03/13/2018 Pharmacy Visit 03/10/2018 Telephone Family Paola Hodge MD Results 03/10/2018 Orders Only Family Paola Hodge MD Vitamin D deficiency (Primary Dx) 03/08/2018 Office Visit Family Paola Hodge MD Health care maintenance (Primary Dx); Alcohol withdrawal syndrome without complication; Folic acid deficiency; Vitamin B12 deficiency; Insomnia, unspecified type; Depression, unspecified depression type; Anxiety; Idiopathic peripheral neuropathy; Tobacco chew use; Abnormal EKG; Nasal congestion; Healthcare maintenance 03/08/2018 Orders Only Family Paola Hodge MD Insomnia, unspecified type; Depression, unspecified depression type; Anxiety; Health care maintenance; Abnormal EKG 03/08/2018 Clinical Case Social Work Eunice Travis RN Mgt 03/08/2018 Pharmacy Visit 02/23/2018 Pharmacy Visit 02/22/2018 Emergency Emergency Medicine [place], [place], Uncomplicated alcohol Physician dependence (Primary Dx); Medication refill 02/19/2018 Hospital Braden Conte MD Fall, subsequent - Encounter Jonn Bradley MD encounter (Primary Dx); 02/21/2018 Hallucinations; Tremors of nervous system; Alcohol withdrawal syndrome without complication after 04/12/2017 Immunizations Name Dates Previously Given Next Due TDap (Tetanus Toxoid, 03/08/2018 (Deferred: Patient Refused - [...] Use Types Packs/Day Years Used Date Never Smoker Smokeless Tobacco: Chew Current User Tobacco Cessation: Ready to Quit: No; Counseling Given: Yes Comments: 1/2 pack per day Alcohol Use Drinks/Week oz/Week Comments Yes 6 Cans of 3.6 former ETOH abuse beer Sex Assigned at Date Recorded Not on file Last Filed Vital Signs Vital Sign Reading Time Taken Blood Pressure 121/80 03/08/2018 1:25 PM CDT Pulse 101 03/08/2018 1:25 PM CDT Temperature 36.7 C (98.1 F) 03/08/2018 1:25 PM CDT Respiratory Rate 20 03/08/2018 1:25 PM CDT Oxygen Saturation 96% 02/22/2018 7:00 PM CDT Inhaled Oxygen - - Concentration Weight 77.6 kg (171 lb) 03/08/2018 1:25 PM CDT Height 175.3 cm (5' 9") 03/08/2018 1:25 PM CDT Body Mass Index 25.25 03/08/2018 1:25 PM CDT Plan of Treatment Date Type Specialty Care Team Description 05/31/2018 Office Visit Psychiatry Britney Looney MD [facility] [address] [place] [address] Health Maintenance Due Date Last Done Comments IMM Influenza Seasonal 05/01/2018May to September (>/=19 yrs) Colorectal Cancer Scrn 03/09/2019 03/09/2018 Annual (FIT/FOBT) Age 50 to 75 Procedures Procedure Name Priority Date/Time Associated Diagnosis Comments OCCULT BLOOD ICT Routine 03/09/2018 Results for this 4:00 PM CDT procedure are in the results section. URINE CULTURE Routine 03/09/2018 Results for this 9:26 AM CDT procedure are in the results section. UA CHEMISTRIES Routine 03/09/2018 Results for this 9:26 AM CDT procedure are in the results section. VIT D, 25-HYDROXY Routine 03/09/2018 Results for this 9:25 AM CDT procedure are in the results section. TSH Routine 03/09/2018 Results for this 9:25 AM CDT procedure are in the results section. RA FACTOR Routine 03/09/2018 Results for this 9:25 AM CDT procedure are in the results section. PSA Routine 03/09/2018 Results for this 9:25 AM CDT procedure are in the results section. LIVER PROFILE Routine 03/09/2018 Results for this 9:25 AM CDT procedure are in the results section. LIPID PROFILE Routine 03/09/2018 Results for this 9:25 AM CDT procedure are in the results section. HEMOGLOBIN A1C Routine 03/09/2018 Results for this 9:25 AM CDT procedure are in the results section. SED RATE Routine 03/09/2018 Results for this 9:25 AM CDT procedure are in the results section. CBC/DIFF Routine 03/09/2018 Results for this 9:25 AM CDT procedure are in the results section. BREANN Routine 03/09/2018 Results for this 9:25 AM CDT procedure are in the results section. 12 LEAD EKG Routine 03/08/2018 Abnormal EKG Results for this 3:46 PM CDT procedure are in the results section. CONSULT CLINICAL CASE STAT 02/22/2018 MANAGEMENT (RN/SW) 5:58 PM CDT IP CONSULT WITH INSIGHT Routine 02/21/2018 8:06 AM CDT BASIC METABOLIC PANEL Routine 02/21/2018 Results for this 3:12 AM CDT procedure are in the results section. FOLIC ACID Routine 02/21/2018 Results for this 3:12 AM CDT procedure are in the results section. VITAMIN B12 Routine 02/21/2018 Results for this 3:12 AM CDT procedure are in the results section. BMP POC Routine 02/20/2018 Results for this 7:56 AM CDT procedure are in the results section. CT HEAD W/O CONTRAST STAT 02/19/2018 Fall, subsequent Results for this 11:53 PM CDT encounter procedure are in the results section. 12 LEAD EKG Routine 02/19/2018 Results for this 10:21 PM CDT procedure are in the results section. VBG POC Routine 02/19/2018 Results for this 9:39 PM CDT procedure are in the results section. TROPONIN I POC Routine 02/19/2018 Results for this 9:38 PM CDT procedure are in the results section. BMP POC Routine 02/19/2018 Results for this 9:38 PM CDT procedure are in the results section. HIV-1/HIV-2 ROUTINE STAT 02/19/2018 Results for this SCREENING 9:30 PM CDT procedure are in the results section. LIVER PROFILE STAT 02/19/2018 Results for this 9:30 PM CDT procedure are in the results section. HEPATITIS PANEL STAT 02/19/2018 Results for this 9:30 PM CDT procedure are in the results section. CBC/DIFF STAT 02/19/2018 Results for this 9:30 PM CDT procedure are in the results section. ACETAMINOPHEN STAT 02/19/2018 Results for this 9:30 PM CDT procedure are in the results section. SALICYLATE STAT 02/19/2018 Results for this 9:30 PM CDT procedure are in the results section. ALCOHOL STAT 02/19/2018 Results for this 9:30 PM CDT procedure are in the results section. URINE DRUG SCREEN STAT 02/19/2018 Results for this 6:55 AM CDT procedure are in the results section. UA CHEMISTRIES STAT 02/19/2018 Results for this 6:55 AM CDT procedure are in the results section. after 04/12/2017 Results * OCCULT BLOOD ICT (03/09/2018 4:00 PM) Occult Blood ICT Negative [facility] Performing Organization Address City/State/Zipcode Phone Number [facility] * UA CHEMISTRIES (03/09/2018 9:26 AM) Only the most recent of 2 results within the time period is included. Color Yellow BT MAIN-STATION 3 Clarity Clear BT MAIN-ST[facility] 3 Spec [place] 1.025 1.001 - 1.035 BT MAIN-STATION 3 pH 5.0 5 - 8 BT MAIN-STATION 3 Protein 1+ (A) NEG BT MAIN-STATION 3 Glucose Negative NEG BT MAIN-STATION 3 Ketone Trace (A) NEG BT MAIN-STATION 3 Bilirubin Negative NEG BT MAIN-[facility]ATION 3 Nitrate Negative NEG BT MAIN-[facility] 3 Urobilinogen <1.0 0.2 - 1.0 EU/dL BT MAIN-STATION 3 Leukocyte Negative NEG BT [facility]IN-ST[facility] 3 Blood Negative NEG BT [facility]IN-[facility] 3 RBC 1 0 - 4 /HPF BT [facility] 3 WBC <1 0 - 5 /HPF BT [facility] 3 Epithelial Cell <1 /HPF BT [facility]IN[facility] 3 Mucous Present BT [facility] 3 Performing Organization Address [facility] [place] Number [facility] 3 * URINE CULTURE (03/09/2018 9:26 AM) Spec Description Clean catch urine [facility] Order Comments None [facility] Culture No growth 2 days BT MICROBIOLOGY Report Status Final 03/12/2018 BT MICROBIOLOGY Specimen Urine clean catch Performing Organization Address [facility] [place] Phone Number [facility] * VIT D, 25-HYDROXY (03/09/2018 9:25 AM) Vit D, 25-Hydroxy 10.4 (L) 30 - 100 ng/mL BT DIAGNOSTIC Comment: IMMUNOLOGY Vitamin D deficiency has been defined by the [place] [employer] and Endocrine Society guideline as a level of serum 25-OH Vitamin D less than 20 ng/mL. The Endocrine Society further defines Vitamin D insufficiency as a level between 21 and 29 ng/mL and sufficiency as a level between 30 and 100 ng/mL. Performing Organization Address [facility] [place] Phone Number [facility] IMMUNOLOGY * HEMOGLOBIN A1C (03/09/2018 9:25 AM) Hemoglobin A1c 5.3 4.3 - 6.1 % BT [facility] IMMUNOLOGY Est Average Gluc 105.4 mg/dL [facility] IMMUNOLOGY Performing Organization Address [facility] Phone Number [facility] I[facility]UNOLOG[facility] * TSH (03/09/2018 9:25 AM) TSH 1.73 0.57 - 3.74 uIU/mL BT [facility] 1 Performing Organization Address [facility] [place] Number [facility] 1 * PSA (03/09/2018 9:25 AM) PSA 0.80 <4.1 ng/mL BT [facility]IN[facility] 1 Performing Organization Address City/State/Zipcode Phone Number [facility] BT [facility] 1 * SED RATE (03/09/2018 9:25 AM) Sed Rate 80 (H) <20 mm/Hr BT MAIN[facility] 3 Performing Organization Address City/State[facility] Phone Number [facility] BT [facility] 3 * RA FACTOR (03/09/2018 9:25 AM) RA Factor <10 <14 IU/mL BT [facility]IN-[facility] 1 Performing Organization Address City/State[facility] Phone Number [facility] BT [facility] 1 * LIVER PROFILE (03/09/2018 9:25 AM) Only the most recent of 2 results within the time period is included. T Protein 7.1 6.0 - 8.3 g/dL BT MAIN[facility]STATION 1 Albumin 4.3 4.2 - 5.5 g/dL BT [facility] 1 T Bilirubin 0.8 0.2 - 1.2 mg/dL BT MAIN-[facility]ATION 1 Alk Phos 72 34 - 104 U/L BT MAIN-STATION 1 AST 17 13 - 39 U/L BT MAIN-STATION 1 ALT 24 7 - 52 U/L BT MAIN-STATION 1 D Bilirubin 0.2 0.0 - 0.2 mg/dL BT MAIN-STATION 1 Performing Organization Address City[facility] Phone Number [facility] BT [facility] 1 * LIPID PROFILE (03/09/2018 9:25 AM) Cholesterol 196 mg/dL BT MAIN-STATION 1 Comment: REFERENCE RANGE: Desirable: <200 mg/dL Borderline: 200-240 mg/dL High Risk: >240 mg/dL Triglyceride 139 <150 mg/dL BT MAIN-STATION 1 Comment: REFERENCE RANGE: Normal: <150 mg/dL Borderline High: 150-199 mg/dL High: 200-499 mg/dL Very High: >dp=298 mg/dL HDL 37 mg/dL BT MAIN-STATION 1 Comment: Increased CHD risk: <40 mg/dL Decreased CHD risk: >60 mg/dL LDL 131 mg/dL BT MAIN-STATION 1 Comment: REFERENCE RANGE: Optimal: <100 mg/dL Near Optimal: 100-129 mg/dL Borderline High: 130-159 mg/dL High: 160-189 mg/dL Very High: >mu=293 mg/dL Performing Organization Address City/State/Zipcode Phone Number [facility] BT [facility] 1 * CBC/DIFF (03/09/2018 9:25 AM) Only the most recent of 2 [...] 35.1 - 43.9 fL BT MAIN-STATION 2 Platelet 219 150 - 400 K/uL BT MAIN-STATION 2 Mean Platelet Volume 12.8 (H) 9.4 - 12.4 fL BT MAIN-STATION 2 Percent NRBC 0.0 BT MAIN-STATION 2 Absolute NRBC 0.00 BT MAIN-[facility] 2 Neutrophil 69.6 (H) 34.0 - 67.9 % BT MAIN-ST[facility] 2 Lymphocyte 15.6 (L) 21.8 - 50.0 % BT MAIN-STATION 2 Monocyte 11.5 5.3 - 12.0 % BT MAIN-STATION 2 Eosinophil 2.3 0.8 - 5.0 % BT MAIN-STATION 2 Basophil 0.5 0.2 - 1.2 % BT MAIN-ST[facility] 2 Pct Immat Gran 0.5 0.0 - 0.5 BT MAIN-STATION 2 Neutrophil, Abs 8.79 (H) 1.78 - 5.36 K/uL BT MAIN-STATION 2 Lymphocyte, Abs 1.97 1.32 - 3.57 K/uL BT MAIN-STATION 2 Monocyte, Abs 1.45 (H) 0.30 - 0.82 K/uL BT MAIN-STATION 2 Eosinophil, Abs 0.29 0.04 - 0.54 K/uL BT MAIN-STATION 2 Basophil, Abs 0.06 0.01 - 0.08 K/uL BT MAIN-STATION 2 Absol Immat Gran 0.06 (H) 0.00 - 0.03 K/uL BT [facility]IN[facility] 2 Performing Organization Address [facility] [place] Phone Number [facility] 2 * BREANN (03/09/2018 9:25 AM) BREANN Screen Negative NEG BT DIAGNOSTIC IMMUNOLOGY Performing Organization Address [facility] [place] Phone Number [facility] BT DIAGNOSTIC IMMUNOLOGY * 12 LEAD EKG (03/08/2018 3:46 PM) 12 LEAD EKG FOR [facility] Test Date:2018-03-08 Pat Name: LINDY FLEMING Department: Room: 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 Measurements Intervals [place] Rate: 106 P: 57 KS: 136 QRS: -46 QRSD: 78 T:57 QT: 330 QTc:438 Interpretive Statements SINUS TACHYCARDIA POSSIBLE LEFT ATRIAL ENLARGEMENT LEFT ANTERIOR FASCICULAR BLOCK Electronically Signed On 03-08-18 17:56:49 CDT by Krissy Pritchett M.D. Performing Organization Address [facility] [place] Phone Number SMS * FOLIC ACID (02/21/2018 3:12 AM) Folic Acid 4.9 (L) 5.9 - 24.8 ng/mL BT MAIN-STATION 1 Specimen Blood Performing Organization Address [facility] [place] Phone Number [facility] 1 * VITAMIN B12 (02/21/2018 3:12 AM) Vitamin B12 183 (L) 211 - 911 pg/mL BT MAIN[facility]STATION 1 Specimen Blood Performing Organization Address [facility] [place] Phone Number [facility] BT [facility] 1 * BASIC METABOLIC PANEL (02/21/2018 3:12 AM) CO2 27 21 - 31 mmol/L BT MAIN-STATION 1 Chloride 105 98 - 107 mmol/L BT MAIN-STATION 1 Potassium 3.3 (L) 3.5 - 5.1 mmol/L BT MAIN-STATION 1 Sodium 144 136 - 145 mmol/L BT MAIN-STATION 1 Glucose 128 (H) 70 - 110 mg/dL BT MAIN-STATION 1 Urea Nitrogen 8 7 - 25 mg/dL BT MAIN-STATION 1 Creatinine 0.80 0.7 - 1.3 mg/dL BT MAIN[facility]STATION 1 Anion Gap 12 BT MAIN-STATION 1 Calcium 8.1 (L) 8.6 - 10.3 mg/dL BT MAIN-STATION 1 GFR, Estimated >60 mL/min/1.73 m2 BT MAIN-STATION 1 GFR, Estim, Afr-Am >60 mL/min/1.73 m2 BT MAIN-STATION 1 Specimen Blood Performing Organization Address [facility] [place] Phone Number [facility] 1 * BMP POC (02/20/2018 7:56 AM) Only [...] 106 mg/dL BT MAIN-STATION 1 Urea Nitrogen POC 15 7 - 18 mg/dL BT MAIN-STATION 1 Creatinine POC 1.0 0.6 - 1.3 mg/dL BT MAIN-STATION 1 Calcium Ionized POC 0.96 (L) 1.15 - 1.29 mmol/L BT MAIN-STATION 1 Hemoglobin POC 12.9 (L) 14.0 - 18.0 g/dL BT MAIN-STATION 1 Hematocrit POC 38.0 (L) 40.0 - 54.0 % BT MAIN-STATION 1 GFR, Estimated >60 mL/min/1.73 m2 MAIN-STATION 1 GFR, Estim, Afr-Am >60 mL/min/1.73 m2 BT MAIN-STATION 1 Performing Organization Address [facility] [place] Phone Number [facility] 1 * CT HEAD W/O CONTRAST (02/19/2018 11:53 PM) Impressions Performed At IMPRESSION: SMS 1.No acute [...] MD, 02/20/2018 12:06 AM Performing Organization Address City/State/Zipcode Phone Number [facility] * 12 LEAD EKG (02/19/2018 10:21 PM) 12 LEAD EKG FOR [facility] Test Date:2018-02-19 Pat Name: LINDY FLEMING Department: Room: Gender: 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0 mm Hg BT MAIN-STATION 1 pO2, Misael POC 38 (L) 50 - 75 mm Hg BT MAIN-STATION 1 Base Deficit, Misael POC 2 BT MAIN-STATION 1 HCO3, Misael POC 22.2 22.0 - 26.0 mmol/L BT MAIN-STATION 1 % Sat, Misael POC 74 60 - 85 % BT MAIN-STATION 1 Lactic Acid, Misael POC 1.86 0.4 - 2.0 mmol/L BT MAIN-STATION 1 TCO2, MISAEL POC 23 21 - 32 mmol/L BT MAIN-STATION 1 Performing Organization Address [place] [place] Phone Number [facility] 1 * TROPONIN I POC (02/19/2018 9:38 PM) Troponin POC 0.01 0.00 - 0.08 ng/mL BT MAIN-STATION 1 Performing Organization Address [facility] Phone Number [facility] BT [facility] 1 * HIV-1/HIV-2 ROUTINE SCREENING (02/19/2018 9:30 PM) HIV-1/HIV-2 Negative NEG BT MAIN-STATION 4 Performing Organization Address City[facility] Phone Number [facility] BT [facility]IN-ST[facility] 4 * SALICYLATE (02/19/2018 9:30 PM) Salicylate <2.5 (L)Comment: Test 2.8 - 30 mg/dL BT MAIN-STATION 1 performed on [id number] using EMIT Immunoassay Specimen Blood Performing Organization Address [facility] [place] Number [facility] * HEPATITIS PANEL (02/19/2018 9:30 PM) HCV IgG Negative NEG BT MAIN-STATION 4 HBsAg Negative NEG BT MAIN-STATION 4 HAV, IgM Negative NEG BT MAIN-STATION 4 HBcAb, IgM Negative NEG BT MAIN-STATION 4 Specimen Blood Performing Organization Address [facility] [place] Phone Number [facility] 4 * ALCOHOL (02/19/2018 9:30 PM) Alcohol <0.010 <0.1 g/dL BT MAIN-STATION 1 Specimen Blood Performing Organization Address [facility] [place] Number [facility] 1 * ACETAMINOPHEN (02/19/2018 9:30 PM) Acetaminophen <10.00 (L)Comment: Test 10 - 30 ug/mL BT MAIN-STATION 1 performed on [id number] using EMIT Immunoassay Specimen Blood Performing Organization Address [facility] [place] Number [facility] 1 * URINE DRUG SCREEN (02/19/2018 6:55 AM) Amphetamine Negative NEG BT MAIN-STATION 1 Comment: Calibrated Standard: D-Methamphetamine Positive if urine level >et=8075 ng/mL Test performed on [id number] using EMIT Immunoassay Barbiturate Negative NEG BT MAIN-STATION 1 Comment: Calibrated Standard: Secobarbital Positive if urine level is >hr=644 ng/mL Test performed on [id number] using EMIT Immunoassay Benzodiazepine Positive (A) NEG BT MAIN-STATION 1 Comment: Calibrated Standard: Lormethazepam Positive if urine level is >iu=213 ng/mL Test performed on [id number] using EMIT Immunoassay Cannabinoid Negative NEG BT MAIN-STATION 1 Comment: Calibrated Standard: 11 nor-delta(9)-THC carboxylic a Positive if urine level >or=50 Test performed on [id number] using EMIT Immunoassay Cocaine Negative NEG BT MAIN-STATION 1 Comment: Calibrated Standard: Benzoylecgonine Positive if urine level >rg=186 Test performed on [id number] using EMIT Immunoassay Opiate, Ur Negative NEG BT MAIN-STATION 1 Comment: Calibrated Standard: Morphine Positive if urine level >rb=035 Test performed on [id number] using EMIT Immunoassay PCP Negative NEG BT MAIN-STATION 1 Comment: Calibrated Standard: Phencyclidine Positive if urine level >or=25 Test performed on [id number] using EMIT Immunoassay Urine Toxicology Screen results are to be used only for Medical purposes. Specimen Urine Performing Organization Address City/State/Zipcode Phone Number [facility] BT MAIN-STATION 1 after 04/12/2017
--- OUTSIDE RECORDS SUMMARY | 2019-03-30 02:20 | XMS REPORT | Clinical Summary ---
Author Author [facility] Organization [facility] Address Unknown Phone Unavailable Care Team Providers Care Netting Weaver Name Role Phone Shilpa Rader PCP Allergies Comments Active Allergy Reactions Severity [...] sleep. Active ciclesonide (ZETONNA) 37 Use 1 Wayside 6.1 g 2 mcg/actuation nasal HFA in [...] Encounters Care Team Description Date Type Specialty Paola tSone MD No Show 04/06/2018 Hospital Radiology Encounter Paola Stone MD Results 03/10/2018 Telephone Family Practice Paola Sotne MD Vitamin D deficiency (Primary Dx) 03/10/2018 [...] complication 02/19/2018 Hospital - Encounter 02/21/2018 after 07/12/2017 Immunizations Name Dates Previously Given Next Due [...] travel history available. Last Filed Vital Signs Time Taken Vital Sign Reading 03/08/2018 1:25 PM CDT Blood Pressure 121/80 03/08/2018 1:25 PM CDT Pulse 101 03/08/2018 1:25 PM CDT Temperature 36.7 C (98.1 F) 03/08/2018 1:25 PM CDT Respiratory Rate 20 02/22/2018 7:00 PM CDT Oxygen Saturation 96% - Inhaled Oxygen - Concentration 03/08/2018 1:25 PM CDT Weight 77.6 kg (171 lb) 03/08/2018 1:25 PM CDT Height 175.3 cm (5' 9") 03/08/2018 1:25 PM CDT Body Mass Index 25.25 Plan of Treatment Health Maintenance Due Date Last Done Comments IMM Influenza Seasonal 05/01/2018 Oct to September (>/=19 yrs) Colorectal Cancer Scrn 03/09/2019 03/09/2018 Annual (FIT/FOBT) Age 50 to 75 Procedures Comments Procedure Name Priority Date/Time Associated Diagnosis OCCULT BLOOD ICT Routine 03/09/2018 4:00 PM CDT URINE CULTURE Routine 03/09/2018 9:26 AM CDT UA CHEMISTRIES Routine 03/09/2018 9:26 AM CDT VIT D, 25-HYDROXY Routine 03/09/2018 9:25 AM CDT TSH Routine 03/09/2018 9:25 AM CDT RA FACTOR Routine 03/09/2018 9:25 AM CDT PSA Routine 03/09/2018 9:25 AM CDT LIVER PROFILE Routine 03/09/2018 [...] CDT SALICYLATE STAT 02/19/2018 9:30 PM CDT ALCOHOL STAT 02/19/2018 9:30 PM CDT URINE DRUG SCREEN STAT 02/19/2018 6:55 AM CDT UA CHEMISTRIES STAT 02/19/2018 6:55 AM CDT after 07/12/2017 Results * OCCULT BLOOD ICT (03/09/2018 4:00 PM CDT) Occult Blood Negative [facility] ICT Performing Organization Address City/State/Zipcode Phone Number [facility] * UA CHEMISTRIES (03/09/2018 9:26 AM CDT) Only the most recent of 2 results within the time period is included. Color Yellow BT MAIN-STATION 3 Clarity Clear BT MAIN-STATION 3 Spec [place] 1.025 1.001 - 1.035 BT MAIN-STATION 3 [...] Present BT MAIN-STATION 3 Performing Organization Address City/[facility] Phone Number [facility] BT MAIN-STATION 3 * URINE CULTURE (03/09/2018 9:26 AM CDT) Spec Clean catch urine [facility] Description Order Comments None [facility] Culture No growth 2 days BT MICROBIOLOGY Report Status Final 03/12/2018 BT MICROBIOLOGY Specimen Urine clean catch Performing Organization Address [facility] Phone Number [facility] BT MICROBIOLOGY * VIT D, 25-HYDROXY (03/09/2018 9:25 AM CDT) Vit D, 10.4 (L) 30 - 100 ng/mL BT DIAGNOSTIC 25-Hydroxy Comment: IMMUNOLOGY Vitamin D deficiency has been defined by the [place] of Medicine and Endocrine Society guideline as a level of serum 25-OH Vitamin D less than 20 ng/mL. The Endocrine Society further defines Vitamin D insufficiency as a level between 21 and 29 ng/mL and sufficiency as a level between 30 and 100 ng/mL. Performing Organization Address City/[facility] Phone Number [facility] BT DIAGNOSTIC IMMUNOLOGY * HEMOGLOBIN A1C (03/09/2018 9:25 AM CDT) Hemoglobin A1c 5.3 4.3 - 6.1 % BT DIAGNOSTIC IMMUNOLOGY Est Average 105.4 mg/dL BT DIAGNOSTIC Gluc IMMUNOLOGY Performing Organization Address [facility] Phone Number [facility] BT DIAGNOSTIC IMMUNOLOGY * TSH (03/09/2018 9:25 AM CDT) TSH 1.73 0.57 - 3.74 uIU/mL BT MAIN-STATION 1 Performing Organization Address City/[facility]/Zipcode Phone Number MISYS BT MAIN-STATION 1 * PSA (03/09/2018 9:25 AM CDT) PSA 0.80 <4.1 ng/mL BT MAIN-STATION 1 Performing Organization Address City/[facility] Phone Number [facility] BT MAIN-STATION 1 * SED RATE (03/09/2018 9:25 AM CDT) Sed Rate 80 (H) <20 mm/Hr BT MAIN-STATION 3 Performing Organization Address City/State/[facility] Phone Number [facility] BT MAIN-STATION 3 * RA FACTOR (03/09/2018 9:25 AM CDT) RA Factor <10 <14 IU/mL BT MAIN-STATION 1 Performing Organization Address [facility] Phone Number MISYS BT MAIN-STATION 1 * [...] mg/dL BT MAIN-STATION 1 Performing Organization Address [facility] Phone Number [facility]YS BT MAIN-STATION 1 * LIPID PROFILE (03/09/2018 9:25 AM CDT) Cholesterol 196 mg/dL BT MAIN-STATION Comment: 1 REFERENCE RANGE: Desirable: <200 mg/dL Borderline: 200-240 mg/dL High Risk: >240 mg/dL Triglyceride 139 <150 mg/dL BT MAIN-STATION Comment: 1 REFERENCE RANGE: Normal: <150 mg/dL Borderline High: 150-199 mg/dL High: 200-499 mg/dL Very High: >da=363 mg/dL HDL 37 mg/dL BT MAIN-STATION Comment: 1 Increased CHD risk: <40 mg/dL Decreased CHD risk: >60 mg/dL LDL 131 mg/dL BT MAIN-STATION Comment: 1 REFERENCE RANGE: Optimal: <100 mg/dL Near Optimal: 100-129 mg/dL Borderline High: 130-159 mg/dL High: 160-189 mg/dL Very High: >gi=406 mg/dL Performing Organization Address City/[facility] Phone Number [facility]ISYS BT MAIN-STATION 1 * [...] 0.08 K/uL BT MAIN-STATION 2 Absol Immat 0.06 (H) 0.00 - 0.03 K/uL BT MAIN-STATION Gran 2 Performing Organization Address City/State/Zipcode Phone Number [facility] BT MAIN-STATION 2 * BREANN (03/09/2018 9:25 AM CDT) BREANN Screen Negative NEG BT DIAGNOSTIC IMMUNOLOGY Performing Organization Address [facility] Phone Number [facility] BT DIAGNOSTIC IMMUNOLOGY * 12 LEAD EKG (03/08/2018 3:46 PM CDT) 12 LEAD EKG FOR [facility] Test Date:2018-03-08 Pat Name: LINDY FLEMING Department: Room: Gender: M 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 Measurements Intervals [place] Rate: 106 P: 57 CA: 136 QRS: -46 QRSD: 78 T:57 QT: 330 QTc:438 Interpretive Statements SINUS TACHYCARDIA POSSIBLE LEFT ATRIAL ENLARGEMENT LEFT ANTERIOR FASCICULAR BLOCK Electronically Signed On 03-08-18 17:56:49 CDT by Krissy Pritchett M.D. Performing Organization Address [facility] Phone Number [facility] * FOLIC ACID (02/21/2018 3:12 AM CDT) Folic Acid 4.9 (L) 5.9 - 24.8 ng/mL BT MAIN-STATION 1 Specimen Blood Performing Organization Address [facility] Phone Number MISYS BT MAIN-STATION 1 * VITAMIN B12 (02/21/2018 3:12 AM CDT) Vitamin B12 183 (L) 211 - 911 pg/mL BT MAIN-STATION 1 Specimen Blood Performing Organization Address [facility] Phone Number MISYS BT MAIN-STATION 1 * [...] mL/min/1.73 m2 BT MAIN-STATION Afr-Am 1 Specimen Blood Performing Organization Address [facility] Phone Number MISYS MAIN-STATION 1 * BMP [...] >60 mL/min/1.73 m2 BT MAIN-STATION Afr-Am 1 Performing Organization Address [facility] Phone Number MISYS BT MAIN-STATION 1 * CT HEAD W/O CONTRAST (02/19/2018 11:53 PM CDT) Impressions Performed At IMPRESSION: SMS 1.No acute [...] AM Performing Organization Address City/State/Zipcode Phone Number SMS * 12 LEAD EKG (02/19/2018 10:21 PM CDT) 12 LEAD EKG FOR [facility] Test Date:2018-02-19 Pat Name: LINDY FLEMING Department: Room: Gender: M 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 Locking 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: :[id number] [id number] Requested By: Order Number: Martha licea MD: Gracie Avila Measurements Intervals [place] Rate: 121 P: 40 CA: 144 QRS: -38 QRSD: 74 T:53 QT: 336 QTc:478 Interpretive Statements SINUS TACHYCARDIA MARKED LEFT AXIS DEVIATION LOW QRS VOLTAGE IN PRECORDIAL LEADS PATTERN CONSISTENT WITH PULMONARY DISEASE Electronically Signed On 02-20-18 00:02:33 CDT by Gracie Avila Performing Organization Address [facility] Phone Number SMS * VBG POC (02/19/2018 9:39 PM CDT) pH, Misael POC 7.42 7.33 - 7.43 BT MAIN-STATION 1 pCO2, Misael POC 33.9 (L) 38.0 - 50.0 mm Hg BT MAIN-STATION 1 pO2, Misael POC 38 (L) 50 - 75 mm Hg BT MAIN-STATION 1 Base Deficit, 2 BT MAIN-STATION Misael POC 1 HCO3, Misael POC 22.2 22.0 - 26.0 mmol/L BT MAIN-STATION 1 % Sat, Misael POC 74 60 - 85 % BT MAIN-STATION 1 Lactic Acid, 1.86 0.4 - 2.0 mmol/L BT MAIN-STATION Misael POC 1 TCO2, MISAEL POC 23 21 - 32 mmol/L BT MAIN-STATION 1 Performing Organization Address [facility] Phone Number MISYS BT MAIN-STATION 1 * TROPONIN I POC (02/19/2018 9:38 PM CDT) Troponin POC 0.01 0.00 - 0.08 ng/mL BT MAIN-STATION 1 Performing Organization Address City/[facility] Phone Number [facility] BT MAIN-STATION 1 * HIV-1/HIV-2 ROUTINE SCREENING (02/19/2018 9:30 PM CDT) HIV-1/HIV-2 Negative NEG BT MAIN-STATION 4 Performing Organization Address City/[facility]/Zipcode Phone Number MISYS BT MAIN-STATION 4 * SALICYLATE (02/19/2018 9:30 PM CDT) Salicylate <2.5 (L)Comment: Test 2.8 - 30 mg/dL BT MAIN-STATION performed on [id number] using EMIT 1 Immunoassay Specimen Blood Performing Organization Address [facility] Phone Number [facility] BT MAIN-STATION 1 * HEPATITIS PANEL (02/19/2018 9:30 PM CDT) HCV IgG Negative NEG BT MAIN-STATION 4 HBsAg Negative NEG BT MAIN-STATION 4 HAV, IgM Negative NEG BT MAIN-STATION 4 HBcAb, IgM Negative NEG BT MAIN-STATION 4 Specimen Blood Performing Organization Address [facility] Phone Number [facility] BT MAIN-STATION 4 * ALCOHOL (02/19/2018 9:30 PM CDT) Alcohol <0.010 <0.1 g/dL BT MAIN-STATION 1 Specimen Blood Performing Organization Address [facility] Phone Number [facility] BT MAIN-STATION 1 * ACETAMINOPHEN (02/19/2018 9:30 PM CDT) Acetaminophen <10.00 (L)Comment: Test 10 - 30 ug/mL BT MAIN-STATION performed on [id number] using EMIT 1 Immunoassay Specimen Blood Performing Organization Address [facility] Phone Number [facility] BT MAIN-STATION 1 * URINE DRUG SCREEN (02/19/2018 6:55 AM CDT) Amphetamine Negative NEG BT MAIN-STATION Comment: 1 Calibrated Standard: D-Methamphetamine Positive if urine level >ab=2754 ng/mL Test performed on [id number] using EMIT Immunoassay Barbiturate Negative NEG BT MAIN-STATION Comment: 1 Calibrated Standard: Secobarbital Positive if urine level is >rz=215 ng/mL Test performed on [id number] using EMIT Immunoassay Benzodiazepine Positive (A) NEG BT MAIN-STATION Comment: 1 Calibrated Standard: Lormethazepam Positive if urine level is >jj=584 ng/mL Test performed on [id number] using EMIT Immunoassay Cannabinoid Negative NEG BT MAIN-STATION Comment: 1 Calibrated Standard: 11 nor-delta(9)-THC carboxylic a Positive if urine level >or=50 Test performed on [id number] using EMIT Immunoassay Cocaine Negative NEG BT MAIN-STATION Comment: 1 Calibrated Standard: Benzoylecgonine Positive if urine level >se=532 Test performed on [id number] using EMIT Immunoassay Opiate, Ur Negative NEG BT MAIN-STATION Comment: 1 Calibrated Standard: Morphine Positive if urine level >xe=718 Test performed on [id number] using EMIT Immunoassay PCP Negative NEG BT MAIN-STATION Comment: 1 Calibrated Standard: Phencyclidine Positive if urine level >or=25 Test performed on [id number] using EMIT Immunoassay Urine Toxicology Screen results are to be used only for Medical purposes. Specimen Urine Performing Organization Address City/State/Zipcode Phone Number [facility] BT MAIN-STATION 1 after 07/12/2017 Insurance Type Payer Benefit Subscriber ID Effective Phone Address Plan / Dates Group [place] [employer] [place] xxxxxxx 2018 [address] [employer] FAMILY /01/2019 [id number] [employer] [id number] [employer]AN xxxxxxx [address] [place] [address] [place] [address] Advance Directives For more information, please contact: [facility] [address] [place] [address] Date Inactivated Comments Code Status Date Activated 02/21/2018 9:03 PM Full Code 02/20/2018 12:16 PM
--- OUTSIDE RECORDS SUMMARY | 2019-03-30 02:21 | XMS REPORT | Clinical Summary ---
Author Author [facility] Organization [facility] Address Unknown Phone Unavailable Care Team Providers Care [employer] Production Associate Name Role Phone Paola Stone MD PCP [...] depression type ciclesonide (ZETONNA) 37 Use 1 [place] in each 6.1 g 2 03/08/20 Active [...] Nasal congestion; Healthcare maintenance 03/08/2018 Orders Only Paola Leonard MD Insomnia, unspecified type; Depression, unspecified depression type; Anxiety; Health care maintenance; Abnormal EKG 03/08/2018 Clinical Case Social Work Eunice Travis RN Mgt 03/08/2018 Pharmacy Visit 02/23/2018 Pharmacy Visit 02/22/2018 Emergency Emergency Medicine Haider Cruz, Uncomplicated alcohol Physician dependence (Primary Dx); Medication refill 02/19/2018 Hospital Braden Conte MD Fall, subsequent - Encounter Jonn Bradley MD encounter (Primary Dx); 02/21/2018 Hallucinations; Tremors of nervous system; Alcohol withdrawal syndrome without complication after 05/11/2017 Immunizations Name Dates Previously Given Next Due [...] Office Visit Psychiatry Britney Looney MD One [address] [place] [address] Health Maintenance Due Date Last Done [...] procedure are in the results section. after 05/11/2017 Results * OCCULT BLOOD ICT (03/09/2018 4:00 PM) Occult Blood ICT Negative [facility] Performing Organization Address City/State/Zipcode Phone Number [facility] * UA CHEMISTRIES (03/09/2018 9:26 AM) Only the most recent of 2 results within the time period is included. Color Yellow BT MAIN-STATION 3 Clarity Clear BT MAIN-STATION 3 Spec [place] 1.025 1.001 - 1.035 BT MAIN-STATION 3 [...] Present BT MAIN-STATION 3 Performing Organization Address [facility] Phone Number [facility] BT MAIN-STATION 3 * URINE CULTURE (03/09/2018 9:26 AM) Spec Description Clean catch urine [facility] Order Comments None [facility] Culture No growth 2 days BT MICROBIOLOGY Report Status Final 03/12/2018 BT MICROBIOLOGY Specimen Urine clean catch Performing Organization Address [facility] Phone Number [facility] BT MICROBIOLOGY * VIT D, 25-HYDROXY (03/09/2018 9:25 AM) Vit D, 25-Hydroxy 10.4 (L) 30 - 100 ng/mL BT DIAGNOSTIC Comment: IMMUNOLOGY Vitamin D deficiency has been defined by the [place] of Medicine and Endocrine Society guideline as a level of serum 25-OH Vitamin D less than 20 ng/mL. The Endocrine Society further defines Vitamin D insufficiency as a level between 21 and 29 ng/mL and sufficiency as a level between 30 and 100 ng/mL. Performing Organization Address [facility] Phone Number [facility] BT DIAGNOSTIC IMMUNOLOGY * HEMOGLOBIN A1C (03/09/2018 9:25 AM) Hemoglobin A1c 5.3 4.3 - 6.1 % BT DIAGNOSTIC IMMUNOLOGY Est Average Gluc 105.4 mg/dL BT DIAGNOSTIC IMMUNOLOGY Performing Organization Address [facility] Phone Number [facility] BT DIAGNOSTIC IMMUNOLOGY * TSH (03/09/2018 9:25 AM) TSH 1.73 0.57 - 3.74 uIU/mL BT MAIN-STATION 1 Performing Organization Address [facility] Phone Number M[facility] BT MAIN-STATION 1 * PSA (03/09/2018 9:25 AM) PSA 0.80 <4.1 ng/mL BT MAIN-STATION 1 Performing Organization Address [facility]/Zipcode Phone Number MISYS BT MAIN-STATION 1 * SED RATE (03/09/2018 9:25 AM) Sed Rate 80 (H) <20 mm/Hr BT MAIN-STATION 3 Performing Organization Address City/State[facility] Phone Number [facility] BT MAIN-STATION 3 * RA FACTOR (03/09/2018 9:25 AM) RA Factor <10 <14 IU/mL BT MAIN-STATION 1 Performing Organization Address City/State/[facility] Phone Number [facility] BT MAIN-STATION 1 * [...] mg/dL BT MAIN-STATION 1 Performing Organization Address City/State/[facility] Phone Number [facility] BT MAIN-STATION 1 * LIPID PROFILE (03/09/2018 9:25 AM) Cholesterol 196 mg/dL BT MAIN-STATION 1 Comment: REFERENCE RANGE: Desirable: <200 mg/dL Borderline: 200-240 mg/dL High Risk: >240 mg/dL Triglyceride 139 <150 mg/dL BT MAIN-STATION 1 Comment: REFERENCE RANGE: Normal: <150 mg/dL Borderline High: 150-199 mg/dL High: 200-499 mg/dL Very High: >lg=511 mg/dL HDL 37 mg/dL BT MAIN-STATION 1 Comment: Increased CHD risk: <40 mg/dL Decreased CHD risk: >60 mg/dL LDL 131 mg/dL BT MAIN-STATION 1 Comment: REFERENCE RANGE: Optimal: <100 mg/dL Near Optimal: 100-129 mg/dL Borderline High: 130-159 mg/dL High: 160-189 mg/dL Very High: >tm=175 mg/dL Performing Organization Address City/State/[facility] Phone Number MIS[facility] BT MAIN-STATION 1 * [...] K/uL BT MAIN-STATION 2 Performing Organization Address [facility] Phone Number MISYS BT MAIN-STATION 2 * BREANN (03/09/2018 9:25 AM) BREANN Screen Negative NEG BT DIAGNOSTIC IMMUNOLOGY Performing Organization Address [facility] Phone Number MISYS BT DIAGNOSTIC IMMUNOLOGY * 12 LEAD EKG (03/08/2018 3:46 PM) 12 LEAD EKG FOR [facility] Test Date:2018-03-08 Pat Name: LINDY FLEMING Department: Room: Gender: M 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 Measurements Intervals [place] Rate: 106 P: 57 RI: 136 QRS: -46 QRSD: 78 T:57 QT: 330 QTc:438 Interpretive Statements SINUS TACHYCARDIA POSSIBLE LEFT ATRIAL ENLARGEMENT LEFT ANTERIOR FASCICULAR BLOCK Electronically Signed On 03-08-18 17:56:49 CDT by Krissy Pritchett M.D. Performing Organization Address [facility] Phone Number SMS * FOLIC ACID (02/21/2018 3:12 AM) Folic Acid 4.9 (L) 5.9 - 24.8 ng/mL BT MAIN-STATION 1 Specimen Blood Performing Organization Address [facility] Phone Number MISYS BT MAIN-STATION 1 * VITAMIN B12 (02/21/2018 3:12 AM) Vitamin B12 183 (L) 211 - 911 pg/mL BT MAIN-STATION 1 Specimen Blood Performing Organization Address [facility] Phone Number MISYS BT MAIN-STATION 1 * [...] MAIN-STATION 1 Specimen Blood Performing Organization Address [facility] Phone Number [facility]ISYS MAIN-STATION 1 * BMP [...] m2 BT MAIN-STATION 1 Performing Organization Address [facility] Phone Number [facility] MAIN-STATION 1 * CT [...] SMS * 12 LEAD EKG (02/19/2018 10:21 PM) 12 LEAD EKG FOR [facility] Test Date:2018-02-19 Pat Name: LINDY FLEMING Department: Room: Gender: M 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: :[id number] [id number] Requested By: Order Number: Martha licea MD: Gracie Avila Measurements Intervals [place] Rate: 121 P: 40 RI: 144 QRS: -38 QRSD: 74 T:53 QT: 336 QTc:478 Interpretive Statements SINUS TACHYCARDIA MARKED LEFT AXIS DEVIATION LOW QRS VOLTAGE IN PRECORDIAL LEADS PATTERN CONSISTENT WITH PULMONARY DISEASE Electronically Signed On 02-20-18 00:02:33 CDT by Gracie Avila Performing Organization Address City/[facility] Phone Number SMS * VBG POC (02/19/2018 [...] mmol/L BT MAIN-STATION 1 Performing Organization Address City/[facility] Phone Number MISYS BT MAIN-STATION 1 * TROPONIN I POC (02/19/2018 9:38 PM) Troponin POC 0.01 0.00 - 0.08 ng/mL BT MAIN-STATION 1 Performing Organization Address City/State/[facility] Phone Number [facility] BT MAIN-STATION 1 * HIV-1/HIV-2 ROUTINE SCREENING (02/19/2018 9:30 PM) HIV-1/HIV-2 Negative NEG BT MAIN-STATION 4 Performing Organization Address City/[facility] Phone Number [facility] BT MAIN-STATION 4 * SALICYLATE (02/19/2018 9:30 PM) Salicylate <2.5 (L)Comment: Test 2.8 - 30 mg/dL BT MAIN-STATION 1 performed on [id number] using EMIT Immunoassay Specimen Blood Performing Organization Address [facility] Phone Number MISYS BT MAIN-STATION 1 * HEPATITIS PANEL (02/19/2018 9:30 PM) HCV IgG Negative NEG BT MAIN-STATION 4 HBsAg Negative NEG BT MAIN-STATION 4 HAV, IgM Negative NEG BT MAIN-STATION 4 HBcAb, IgM Negative NEG BT MAIN-STATION 4 Specimen Blood Performing Organization Address [facility] Phone Number [facility] * ALCOHOL (02/19/2018 9:30 PM) Alcohol <0.010 <0.1 g/dL BT MAIN-STATION 1 Specimen Blood Performing Organization Address [facility] Phone Number [facility] BT MAIN-STATION 1 * ACETAMINOPHEN (02/19/2018 9:30 PM) Acetaminophen <10.00 (L)Comment: Test 10 - 30 ug/mL BT MAIN-STATION 1 performed on [id number] using EMIT Immunoassay Specimen Blood Performing Organization Address [facility] Phone Number [facility] BT MAIN-STATION 1 * URINE DRUG SCREEN (02/19/2018 6:55 AM) Amphetamine Negative NEG BT MAIN-STATION 1 Comment: Calibrated Standard: D-Methamphetamine Positive if urine level >zg=6984 ng/mL Test performed on [id number] using EMIT Immunoassay Barbiturate Negative NEG BT MAIN-STATION 1 Comment: Calibrated Standard: Secobarbital Positive if urine level is >wd=218 ng/mL Test performed on [id number] using EMIT Immunoassay Benzodiazepine Positive (A) NEG BT MAIN-STATION 1 Comment: Calibrated Standard: Lormethazepam Positive if urine level is >bo=572 ng/mL Test performed on [id number] using EMIT Immunoassay Cannabinoid Negative NEG BT MAIN-STATION 1 Comment: Calibrated Standard: 11 nor-delta(9)-THC carboxylic a Positive if urine level >or=50 Test performed on [id number] using EMIT Immunoassay Cocaine Negative NEG BT MAIN-STATION 1 Comment: Calibrated Standard: Benzoylecgonine Positive if urine level >hk=068 Test performed on [id number] using EMIT Immunoassay Opiate, Ur Negative NEG BT MAIN-STATION 1 Comment: Calibrated Standard: Morphine Positive if urine level >lo=315 Test performed on [id number] using EMIT Immunoassay PCP Negative NEG BT MAIN-STATION 1 Comment: Calibrated Standard: Phencyclidine Positive if urine level >or=25 Test performed on [id number] using EMIT Immunoassay Urine Toxicology Screen results are to be used only for Medical purposes. Specimen Urine Performing Organization Address City/State/Zipcode Phone Number [facility]ISYS BT MAIN-STATION 1 after 05/11/2017
--- OUTSIDE RECORDS SUMMARY | 2019-03-30 02:21 | XMS REPORT | Clinical Summary ---
Author Author [facility] Organization [facility] Address Unknown Phone Unavailable Care Team Providers Care [employer] Name Role Phone Paola Stone MD PCP [...] depression type ciclesonide (ZETONNA) 37 Use 1 [place] in each 6.1 g 2 03/08/20 Active [...] system; Alcohol withdrawal syndrome without complication after 05/28/2017 Immunizations Name Dates Previously Given Next Due [...] Office Visit Psychiatry Britney Looney MD One [address] [place] [address] Health Maintenance Due Date Last Done [...] procedure are in the results section. after 05/28/2017 Results * OCCULT BLOOD ICT (03/09/2018 4:00 PM) Occult Blood ICT Negative [facility] Performing Organization Address City/State/Zipcode Phone Number [facility] * UA CHEMISTRIES (03/09/2018 9:26 AM) Only the most recent of 2 results within the time period is included. Color Yellow BT MAIN-STATION 3 Clarity Clear BT MAIN-STATION 3 Spec [place] 1.025 1.001 - 1.035 BT MAIN-STATION 3 [...] Present BT MAIN-STATION 3 Performing Organization Address [facility] Phone Number [facility]IS[facility] BT MAIN-STATION 3 * URINE CULTURE (03/09/2018 9:26 AM) Spec Description Clean catch urine [facility] Order Comments None [facility] Culture No growth 2 days BT MICROBIOLOGY Report Status Final 03/12/2018 BT MICROBIOLOGY Specimen Urine clean catch Performing Organization Address [facility] Phone Number [facility] BT MICROBIOLOGY * VIT D, 25-HYDROXY (03/09/2018 9:25 AM) Vit D, 25-Hydroxy 10.4 (L) 30 - 100 ng/mL BT DIAGNOSTIC Comment: IMMUNOLOGY Vitamin D deficiency has been defined by the [place] of Medicine and Endocrine Society guideline as a level of serum 25-OH Vitamin D less than 20 ng/mL. The Endocrine Society further defines Vitamin D insufficiency as a level between 21 and 29 ng/mL and sufficiency as a level between 30 and 100 ng/mL. Performing Organization Address [facility] Phone Number [facility] BT DIAGNOSTIC IMMUNOLOGY * HEMOGLOBIN A1C (03/09/2018 9:25 AM) Hemoglobin A1c 5.3 4.3 - 6.1 % BT DIAGNOSTIC IMMUNOLOGY Est Average Gluc 105.4 mg/dL BT DIAGNOSTIC IMMUNOLOGY Performing Organization Address [facility] Phone Number [facility] BT DIAGNOSTIC IMMUNOLOGY * TSH (03/09/2018 9:25 AM) TSH 1.73 0.57 - 3.74 uIU/mL BT MAIN-STATION 1 Performing Organization Address [facility] Phone Number [facility]IS[facility] BT MAIN-STATION 1 * PSA (03/09/2018 9:25 AM) PSA 0.80 <4.1 ng/mL BT MAIN-STATION 1 Performing Organization Address [facility] Phone Number [facility] BT MAIN-STATION 1 * SED RATE (03/09/2018 9:25 AM) Sed Rate 80 (H) <20 mm/Hr BT MAIN-STATION 3 Performing Organization Address City[facility]State[facility] Phone Number [facility] BT MAIN-STATION 3 * RA FACTOR (03/09/2018 9:25 AM) RA Factor <10 <14 IU/mL BT MAIN-STATION 1 Performing Organization Address [facility]State[facility] Phone Number [facility] BT MAIN-STATION 1 * [...] mg/dL BT MAIN-STATION 1 Performing Organization Address City/State[facility] Phone Number [facility] BT MAIN-STATION 1 * LIPID PROFILE (03/09/2018 9:25 AM) Cholesterol 196 mg/dL BT MAIN-STATION 1 Comment: REFERENCE RANGE: Desirable: <200 mg/dL Borderline: 200-240 mg/dL High Risk: >240 mg/dL Triglyceride 139 <150 mg/dL BT MAIN-STATION 1 Comment: REFERENCE RANGE: Normal: <150 mg/dL Borderline High: 150-199 mg/dL High: 200-499 mg/dL Very High: >gl=261 mg/dL HDL 37 mg/dL BT MAIN-STATION 1 Comment: Increased CHD risk: <40 mg/dL Decreased CHD risk: >60 mg/dL LDL 131 mg/dL BT MAIN-STATION 1 Comment: REFERENCE RANGE: Optimal: <100 mg/dL Near Optimal: 100-129 mg/dL Borderline High: 130-159 mg/dL High: 160-189 mg/dL Very High: >ix=119 mg/dL Performing Organization Address City/State/extra[place] Phone Number MISYS BT MAIN-STATION 1 * [...] K/uL BT MAIN-STATION 2 Performing Organization Address [facility] Phone Number MISYS BT MAIN-STATION 2 * BREANN (03/09/2018 9:25 AM) BREANN Screen Negative NEG BT DIAGNOSTIC IMMUNOLOGY Performing Organization Address [facility] Phone Number [facility] BT DIAGNOSTIC IMMUNOLOGY * 12 LEAD EKG (03/08/2018 3:46 PM) 12 LEAD EKG FOR [facility] Test Date:2018-03-08 Pat Name: LINDY FLEMING Department: Room: Gender: M Social Media Sr Strategy Manager: :[id number] 5-07 Requested By: Order Number: Martha licea MD: Krissy Pritchett M.D. Measurements Intervals [place] Rate: 106 P: 57 NV: 136 QRS: -46 QRSD: 78 T:57 QT: 330 QTc:438 Interpretive Statements SINUS TACHYCARDIA POSSIBLE LEFT ATRIAL ENLARGEMENT LEFT ANTERIOR FASCICULAR BLOCK Electronically Signed On 03-08-18 17:56:49 CDT by Krissy Pritchett M.D. Performing Organization Address [facility] Phone Number [facility] * FOLIC ACID (02/21/2018 3:12 AM) Folic Acid 4.9 (L) 5.9 - 24.8 ng/mL BT MAIN-STATION 1 Specimen Blood Performing Organization Address [facility] Phone Number MISYS BT MAIN-STATION 1 * VITAMIN B12 (02/21/2018 3:12 AM) Vitamin B12 183 (L) 211 - 911 pg/mL BT MAIN-STATION 1 Specimen Blood Performing Organization Address [facility] Phone Number MISYS BT MAIN-STATION 1 * [...] MAIN-STATION 1 Specimen Blood Performing Organization Address [facility] Phone Number MISYS MAIN-STATION 1 * BMP [...] m2 BT MAIN-STATION 1 Performing Organization Address [facility] Phone Number MISYS MAIN-STATION 1 * CT [...] 10:21 PM) 12 LEAD EKG FOR [facility] Test Date:2018-02-19 Pat Name: LINDY FLEMING Department: Room: Gender: M Social Media Sr Strategy Manager: :[id number] 5-07 Requested By: Order Number: Martha licea MD: Gracie Avila Measurements Intervals [place] Rate: 121 P: 40 NV: 144 QRS: -38 QRSD: 74 T:53 QT: 336 QTc:478 Interpretive Statements SINUS TACHYCARDIA MARKED LEFT AXIS DEVIATION LOW QRS VOLTAGE IN PRECORDIAL LEADS PATTERN CONSISTENT WITH PULMONARY DISEASE Electronically Signed On 02-20-18 00:02:33 CDT by Gracie Avila Performing Organization Address City[facility]State/[facility] Phone Number SMS * VBG POC (02/19/2018 [...] mmol/L BT MAIN-STATION 1 Performing Organization Address [facility]State[facility] Phone Number [facility] BT MAIN-STATION 1 * TROPONIN I POC (02/19/2018 9:38 PM) Troponin POC 0.01 0.00 - 0.08 ng/mL BT MAIN-STATION 1 Performing Organization Address City/State/Zipcode Phone Number [facility]IS[facility] BT MAIN-STATION 1 * HIV-1/HIV-2 ROUTINE SCREENING (02/19/2018 9:30 PM) HIV-1/HIV-2 Negative NEG BT MAIN-STATION 4 Performing Organization Address City/[facility] Phone Number [facility] BT MAIN-STATION 4 * SALICYLATE (02/19/2018 9:30 PM) Salicylate <2.5 (L)Comment: Test 2.8 - 30 mg/dL BT MAIN-STATION 1 performed on [id number] using EMIT Immunoassay Specimen Blood Performing Organization Address [facility] Phone Number MISYS BT MAIN-STATION 1 * HEPATITIS PANEL (02/19/2018 9:30 PM) HCV IgG Negative NEG BT MAIN-STATION 4 HBsAg Negative NEG BT MAIN-STATION 4 HAV, IgM Negative NEG BT MAIN-STATION 4 HBcAb, IgM Negative NEG BT MAIN-STATION 4 Specimen Blood Performing Organization Address [facility] Phone Number [facility] * ALCOHOL (02/19/2018 9:30 PM) Alcohol <0.010 <0.1 g/dL BT MAIN-STATION 1 Specimen Blood Performing Organization Address [facility] Phone Number [facility] 1 * ACETAMINOPHEN (02/19/2018 9:30 PM) Acetaminophen <10.00 (L)Comment: Test 10 - 30 ug/mL BT MAIN-STATION 1 performed on [id number] using EMIT Immunoassay Specimen Blood Performing Organization Address [facility] Phone Number M[facility] BT MAIN-STATION 1 * URINE DRUG SCREEN (02/19/2018 6:55 AM) Amphetamine Negative NEG BT MAIN-STATION 1 Comment: Calibrated Standard: D-Methamphetamine Positive if urine level >rl=0779 ng/mL Test performed on [id number] using EMIT Immunoassay Barbiturate Negative NEG BT MAIN-STATION 1 Comment: Calibrated Standard: Secobarbital Positive if urine level is >bh=820 ng/mL Test performed on [id number] using EMIT Immunoassay Benzodiazepine Positive (A) NEG BT MAIN-STATION 1 Comment: Calibrated Standard: Lormethazepam Positive if urine level is >mj=984 ng/mL Test performed on [id number] using EMIT Immunoassay Cannabinoid Negative NEG BT MAIN-STATION 1 Comment: Calibrated Standard: 11 nor-delta(9)-THC carboxylic a Positive if urine level >or=50 Test performed on [id number] using EMIT Immunoassay Cocaine Negative NEG BT MAIN-STATION 1 Comment: Calibrated Standard: Benzoylecgonine Positive if urine level >as=018 Test performed on [id number] using EMIT Immunoassay Opiate, Ur Negative NEG BT MAIN-STATION 1 Comment: Calibrated Standard: Morphine Positive if urine level >pm=529 Test performed on [id number] using EMIT Immunoassay PCP Negative NEG BT MAIN-STATION 1 Comment: Calibrated Standard: Phencyclidine Positive if urine level >or=25 Test performed on [id number] using EMIT Immunoassay Urine Toxicology Screen results are to be used only for Medical purposes. Specimen Urine Performing Organization Address City/State/Zipcode Phone Number MIS[facility] BT MAIN-STATION 1 after 05/28/2017
[2019-03-30] MEDS ORDERED: MORPHINE SULFATE 2 MG/ML SYR 1ML ONE (02:42)
[2019-03-30] MEDS ORDERED: MORPHINE SULFATE INJ 4 MG/ML INJ 1ML IV PRN (02:45)
[2019-03-30 02:50] LABS: BASOPHILS % 0.1 % (0.0-1.0); EOSINOPHILS # (AUTO) 0.2 (0.0-0.4); HEMATOCRIT 52.9 % (38.2-49.6); HEMOGLOBIN 18.9 g/dL (14.0-18.0); LYMPHOCYTES # (AUTO) 1.2 (1.0-3.2); LYMPHOCYTES % 15.3 % (18.0-39.1); MEAN CORPUSCULAR HGB CONC 35.7 g/dL (31-35); MONOCYTES # (AUTO) 1.3 (0.2-0.8); MONOCYTES % 16.1 % (4.4-11.3); NEUTROPHILS # (AUTO) 5.3 (2.1-6.9); NEUTROPHILS % 65.6 % (38.7-80.0); PLATELET COUNT 74 x10e3/uL (140-360); RED CELL DISTRIBUTION WIDTH 16.4 % (11.7-14.4)
--- NOTE | 2019-03-30 03:08 | Diagnostic Imaging Report ---
EXAMINATION: CT of the abdomen and pelvis without contrast. TECHNIQUE: Spiral CT images of the abdomen and pelvis were performed from the lung bases to the lesser trochanters. No intravenous contrast was given per iodine allergy. Coronal and sagittal reformatted images were obtained. COMPARISON: None. CLINICAL HISTORY:Nausea, vomiting, left lower quadrant abdominal pain DISCUSSION: ABSENCE OF INTRAVENOUS CONTRAST DECREASES SENSITIVITY FOR DETECTION OF FOCAL LESIONS AND VASCULAR PATHOLOGY. ABDOMEN/PELVIS: LOWER THORAX: Unremarkable. HEPATOBILIARY:Hepatic parenchyma is diffusely hypoattenuating compatible with steatosis. No gallbladder wall thickening or pericholecystic inflammation. SPLEEN: No splenomegaly. PANCREAS: No focal masses or ductal dilatation. ADRENALS: No adrenal nodules. KIDNEYS/URETERS: No hydronephrosis, stones, or solid mass lesions. PELVIC ORGANS/BLADDER: Urinary bladder, prostate, and seminal vesicles are unremarkable. PERITONEUM/RETROPERITONEUM: No free air or fluid. LYMPH NODES: No pelvic sidewall, retroperitoneal, or mesenteric lymphadenopathy. VESSELS: Limited evaluation without intravenous contrast. Atherosclerotic calcification of the abdominal aorta and iliac arterial systems without aneurysmal dilatation. GI TRACT: The distal large bowel is collapsed and poorly evaluated. Submucosal fat deposition throughout the large bowel. There are a few diverticula scattered along the descending and sigmoid colon without evidence of diverticulitis. No wall thickening or adjacent inflammatory change involving the large bowel. Normal appendix. The stomach is collapsed with prominent rugal folds. No small bowel dilatation to suggest obstruction. BONES AND SOFT TISSUES: Small bilateral fat-containing inguinal hernias. No additional focal soft tissue abnormalities. No osseous destructive lesions. Mild degenerative disc changes and facet arthropathy of the lumbar spine. IMPRESSION: No acute intra-abdominal or pelvic CT abnormalities. No active large bowel inflammation in this patient with reported history of ulcerative colitis. Large bowel diverticulosis without evidence of diverticulitis. Hepatic steatosis. Signed by: Dr. Sharif Inman M.D. on 03/30/2019 3:04 AM
[2019-03-30 03:13] LABS: ALBUMIN 5.5 g/dL (3.5-5.0); ALBUMIN/GLOBULIN RATIO 1.4 (0.8-2.0); ANION GAP 32.8 mmol/L (8-16); CREATININE, SERUM 2.77 mg/dL (0.72-1.25); POTASSIUM 3.8 mmol/L (3.5-5.1)
[2019-03-30 03:19] LABS: CREATINE KINASE MB 1.6 ng/mL (0-5.0)
[2019-03-30 03:22] LABS: CALCIUM 11.4 mg/dL (8.4-10.2)
[2019-03-30] MEDS ORDERED: DIAZEPAM INJ 5 MG/ML 2 ML IV ONE ×2 (03:45)
[2019-03-30] MEDS ORDERED: LORAZEPAM INJ 2 MG/ML VIAL IV ONE (03:45)
[2019-03-30] MEDS ORDERED: DIAZEPAM 2 MG TAB PO ONE (03:45)
--- OUTSIDE RECORDS SUMMARY | 2019-03-30 03:47 | XMS REPORT | Clinical Summary ---
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 Active ciclesonide 37 Use 1 [place] 0 mcg/actuation HFA aerosol in each 8 [...] time period is included. Alcohol 51.6 mg/dL [facility] Comment: OF PATHOLOGY Normal AND GENOMIC None MEDICINE Detected Legal Intoxication in [place] 80 mg/dL (0.08%) Toxic Concentration 200 mg/dL (0.2%) Potentially Fatal 350-500 mg/dL (0.35%-0.5%) Alcohol percent 0.052 % [facility] OF PATHOLOGY AND GENOMIC MEDICINE Specimen Blood Performing Organization Address City/State/Zipcode Phone Number [facility] OF [address] [place] [address] PATHOLOGY AND GENOMIC MEDICINE * ECG ED Preliminary Interpretation - NOT AN ORDER (04/08/2018 8:01 PM CDT) Narrative Performed At Alvarez Roy Jr., MD 04/10/20181:51 AM ECG ED Preliminary Interpretation - Not an Order Performed by: ALVAREZ ROY JR. Authorized by: ALVAREZ ROY JR. ECG reviewed by ED Physician in the absence of a loadmaster: yes Interpretation: Interpretation: normal Rate: ECG rate:83 ECG rate assessment: normal Rhythm: Rhythm: sinus rhythm Ectopy: Ectopy: none QRS: QRS axis:Normal Conduction: Conduction: normal ST segments: ST segments:Normal T waves: T waves: normal * Urinalysis screen and microscopy, with reflex to culture (04/08/2018 6:28 PM CDT) Specimen site Clean catch [facility] OF PATHOLOGY AND GENOMIC MEDICINE Color, UA Straw [facility] OF PATHOLOGY AND GENOMIC MEDICINE Appearance, UA Clear [facility] OF PATHOLOGY AND GENOMIC MEDICINE Specific 1.004 1.001 - 1.035 [facility] gravity, OF PATHOLOGY AND GENOMIC MEDICINE pH, UA 6.0 5.0 - 8.5 [facility] OF PATHOLOGY AND GENOMIC MEDICINE Protein, UA Negative Negative [facility] OF PATHOLOGY AND GENOMIC MEDICINE Glucose, UA Negative Negative [facility] OF PATHOLOGY AND GENOMIC MEDICINE Ketones, UA Negative Negative [facility] OF PATHOLOGY AND GENOMIC MEDICINE Bilirubin, UA Negative Negative [facility] OF PATHOLOGY AND GENOMIC MEDICINE Blood, UA Negative Negative [facility] OF PATHOLOGY AND GENOMIC MEDICINE Nitrite, UA Negative Negative [facility] OF PATHOLOGY AND GENOMIC MEDICINE Urobilinogen, Negative <2.0 [facility] UA OF PATHOLOGY AND GENOMIC MEDICINE Leukocyte Negative Negative [facility] esterase, UA OF PATHOLOGY AND GENOMIC MEDICINE WBC, UA <1 0 - 1 /HPF [facility] OF PATHOLOGY AND GENOMIC MEDICINE RBC, UA 1 0 - 5 /HPF [facility] OF PATHOLOGY AND GENOMIC MEDICINE Bacteria, UA Trace None seen [facility] OF PATHOLOGY AND GENOMIC MEDICINE Yeast, UA None seen [facility] OF PATHOLOGY AND GENOMIC MEDICINE Yeast with None seen [facility] pseudohyphae, OF PATHOLOGY UA AND GENOMIC MEDICINE Specimen Urine Performing Organization Address City/State/Zipcode Phone Number [facility] [address] [place] [address] PATHOLOGY AND GENOMIC MEDICINE * Urine drugs of abuse screen (04/08/2018 6:28 PM CDT) Amphetamine Negative [facility] screen, urine OF PATHOLOGY AND GENOMIC MEDICINE Barbiturate Negative [facility] screen, urine OF PATHOLOGY AND GENOMIC MEDICINE Benzodiazepine Negative [facility] screen, urine OF PATHOLOGY AND GENOMIC MEDICINE Cocaine screen, Negative [facility] urine OF PATHOLOGY AND GENOMIC MEDICINE Methadone Negative [facility] screen, urine OF PATHOLOGY AND GENOMIC MEDICINE Opiates screen, Negative [facility] urine OF PATHOLOGY AND GENOMIC MEDICINE Phencyclidine Negative [facility] screen, urine OF PATHOLOGY AND GENOMIC MEDICINE Cannabinoid Negative [facility] screen, urine Comment: OF PATHOLOGY Drug [...] Urine Performing Organization Address City/State/Zipcode Phone Number [facility] [address] [place] [address] PATHOLOGY AND GENOMIC MEDICINE * ECG 12 lead (04/08/2018 6:25 PM CDT) Ventricular 83 [facility] rate Atrial rate 83 [facility] IA interval 144 [facility] QRSD interval 66 [facility] QT interval 360 [facility] QTC interval 423 [facility] P axis 1 69 [facility] QRS axis 1 -36 [facility] T wave axis 44 [facility] EKG impression Normal sinus rhythm-Left axis [facility] deviation-Abnormal ECG-No previous ECGs available- Specimen Performing Organization Address City/State/Zipcode Phone Number [facility] MUSE [address] [place] [address] * Estimated GFR (04/08/2018 6:15 PM CDT) Pathologist [facility] GFR Non Af Amer >90 mL/min/1.73 m2 [facility] OF PATHOLOGY AND GENOMIC MEDICINE GFR Af Amer >90 mL/min/1.73 m2 [facility] Comment: OF PATHOLOGY Chronic kidney disease: [...] specimen Performing Organization Address City/State/Zipcode Phone Number [facility] [address] [place] [address] PATHOLOGY AND GENOMIC MEDICINE * CBC with platelet and differential (04/08/2018 6:15 PM CDT) [facility] WBC 8.2 4.2 - 11.0 k/uL [facility] OF PATHOLOGY AND GENOMIC MEDICINE RBC 4.53 4.04 - 5.86 m/uL [facility] OF PATHOLOGY AND GENOMIC MEDICINE HGB 15.0 13.0 - 17.3 g/dL [facility] OF PATHOLOGY AND GENOMIC MEDICINE HCT 46.0 (H) 34.0 - 45.0 % [facility] OF PATHOLOGY AND GENOMIC MEDICINE MCV 101.5 (H) 80.0 - 98.0 fL [facility] OF PATHOLOGY AND GENOMIC MEDICINE MCH 33.1 27.0 - 34.0 pg [facility] OF PATHOLOGY AND GENOMIC MEDICINE MCHC 32.6 31.5 - 36.5 g/dL [facility] OF PATHOLOGY AND GENOMIC MEDICINE RDW - SD 55.8 (H) 37.0 - 51.0 fL [facility] OF PATHOLOGY AND GENOMIC MEDICINE MPV 10.9 (H) 7.4 - 10.4 fL [facility] OF PATHOLOGY AND GENOMIC MEDICINE Platelet count 221 150 - 400 k/uL [facility] OF PATHOLOGY AND GENOMIC MEDICINE Nucleated RBC 0.00 /100 WBC [facility] OF PATHOLOGY AND GENOMIC MEDICINE Neutrophils 39.5 36.0 - 66.0 % [facility] OF PATHOLOGY AND GENOMIC MEDICINE Lymphocytes 44.3 (H) 24.0 - 44.0 % [facility] OF PATHOLOGY AND GENOMIC MEDICINE Monocytes 9.5 (H) 0.0 - 6.0 % [facility] OF PATHOLOGY AND GENOMIC MEDICINE Eosinophils 5.1 0.0 - 6.0 % [facility] OF PATHOLOGY AND GENOMIC MEDICINE Basophils 1.5 (H) 0.0 - 1.2 % [facility] OF PATHOLOGY AND GENOMIC MEDICINE Immature 0.1 0.0 - 1.0 % [facility] granulocytes OF PATHOLOGY AND GENOMIC MEDICINE Specimen Blood Performing Organization Address City/[facility] [place] [address] PATHOLOGY AND GENOMIC MEDICINE * Thyroid stimulating hormone (04/08/2018 6:15 PM CDT) TSH 0.77 0.27 - 4.20 uIU/mL [facility] OF PATHOLOGY AND GENOMIC MEDICINE Specimen Plasma specimen Performing Organization Address City/[facility] [place] [address] PATHOLOGY AND GENOMIC MEDICINE * T4, free (04/08/2018 6:15 PM CDT) T4, free 1.06 0.90 - 1.70 ng/dL [facility] OF PATHOLOGY AND GENOMIC MEDICINE Specimen Plasma specimen Performing Organization Address City/[facility] [place] [address] PATHOLOGY AND GENOMIC MEDICINE * Acetaminophen level (04/08/2018 6:15 PM CDT) Acetaminophen <15.3 10.0 - 30.0 ug/mL [facility] level Comment: OF PATHOLOGY Therapeutic AND GENOMIC 10-30 MEDICINE ug/mL Possible Toxicity 150-200 ug/mL Probable Toxicity >200 ug/mL Specimen Blood Performing Organization Address [facility] [place] [address] PATHOLOGY AND GENOMIC MEDICINE * Salicylate level (04/08/2018 6:15 PM CDT) Pathologist [facility] Salicylate <0.4 (L) 3.0 - 30.0 mg/dL [facility] Comment: OF PATHOLOGY Therapeutic Range: AND GENOMIC 5 - 30 mg/dL MEDICINE Specimen Blood Performing Organization Address [facility] Cent[facility]ode Phone Number [facility] [address] [place] [address] PATHOLOGY AND GENOMIC MEDICINE * Comprehensive metabolic panel (04/08/2018 6:15 PM CDT) [facility] Sodium 146 135 - 150 mEq/L [facility] OF PATHOLOGY AND GENOMIC MEDICINE Potassium 4.0 3.5 - 5.0 mEq/L [facility] OF PATHOLOGY AND GENOMIC MEDICINE Chloride 106 98 - 112 mEq/L [facility] OF PATHOLOGY AND GENOMIC MEDICINE CO2 25 24 - 31 mmol/L [facility] OF PATHOLOGY AND GENOMIC MEDICINE Anion gap 15@ANIO 7 - 15 mEq/L [facility] OF PATHOLOGY AND GENOMIC MEDICINE BUN 5 (L) 7 - 18 mg/dL [facility] OF PATHOLOGY AND GENOMIC MEDICINE Creatinine 0.80 0.70 - 1.20 mg/dL [facility] OF PATHOLOGY AND GENOMIC MEDICINE Glucose 94 65 - 100 mg/dL [facility] OF PATHOLOGY AND GENOMIC MEDICINE Calcium 9.2 8.3 - 10.2 mg/dL [facility] OF PATHOLOGY AND GENOMIC MEDICINE Protein 7.5 6.3 - 8.3 g/dL [facility] OF PATHOLOGY AND GENOMIC MEDICINE Albumin 4.1 3.5 - 5.0 g/dL [facility] OF PATHOLOGY AND GENOMIC MEDICINE A/G ratio 1.2 0.7 - 3.8 [facility] OF PATHOLOGY AND GENOMIC MEDICINE Alkaline 72 0 - 129 U/L [facility] phosphatase OF PATHOLOGY AND GENOMIC MEDICINE AST 27 10 - 50 U/L [facility] OF PATHOLOGY AND GENOMIC MEDICINE ALT 17 5 - 50 U/L [facility] OF PATHOLOGY AND GENOMIC MEDICINE Total bilirubin 0.3 0.2 - 1.2 mg/dL [facility] OF PATHOLOGY AND GENOMIC MEDICINE Specimen Plasma specimen Performing Organization Address City/[facility]/Zipcode Phone Number [facility] [address] [place] [address] PATHOLOGY AND GENOMIC MEDICINE after 03/29/2018 Advance Directives For more information, please contact: [phone] 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
--- OUTSIDE RECORDS SUMMARY | 2019-03-30 03:47 | XMS REPORT | Continuity of Care Document ---
Author Author [facility] Organization [facility] Address Unknown Phone Unavailable Care Team Providers Care Research Chef Name Role Phone [facility] Unavailable Unavailable Problems Problem Status Onset Date Classification Date Reported Comments Source Depression Active 03/08/2018 01/07/2019 [facility] Nasal congestion Active 03/08/2018 01/07/2019 [facility] Alcohol withdrawal syndrome without complication Active 02/20/2018 01/07/2019 [facility] Alcohol withdrawal Active 02/20/2018 01/07/2019 [facility] Fall Active 02/19/2018 01/07/2019 [facility] GAIT DISORDER Active 11/11/2014 [facility] 780.2 Active 08/09/2014 [facility] Cervical spondylosis Active 05/25/2007 01/07/2019 [facility] Tremors of nervous system Active 01/07/2019 [facility] Medication refill Active 01/07/2019 [facility] Uncomplicated alcohol dependence Active 01/07/2019 [facility] Vitamin B12 deficiency Active 01/07/2019 [facility] Folic acid deficiency Active 01/07/2019 [facility] Peripheral neuropathy Active 01/07/2019 [facility] Anemia Active 01/07/2019 [facility] Tobacco chew use Active 01/07/2019 [facility] Visual hallucinations Active 01/07/2019 [facility] Homeless Active 01/07/2019 [facility] Vitamin D deficiency Active 01/07/2019 [facility] Health care maintenance Active 01/07/2019 [facility] Insomnia, unspecified type Active 01/07/2019 [facility] Depression, unspecified depression type Active 01/07/2019 [facility] Anxiety Active 01/07/2019 [facility] Idiopathic peripheral neuropathy Active 01/07/2019 [facility] Abnormal EKG Active 01/07/2019 [facility] Healthcare maintenance Active 01/07/2019 [facility] Fall, subsequent encounter Active 01/07/2019 [facility] Hallucinations Active 01/07/2019 [facility] Gait abnormality Active 01/07/2019 [facility] Medications Medication Details Route Status Patient Instructions Ordering Provider Order Date Source ergocalciferol (VITAMIN D2) 50,000 unit capsule Take 1 capsule by mouth weekly For 3 months and then buy vitamin D3: 2000 units and take 1 tablet/day. Oral Active 03/10/2018 [facility] Ergocalciferol (Vitamin D2) 50,000 Unit Capsule Take 1 capsule by mouth weekly For 3 months and then buy vitamin D3: 2000 units and take 1 tablet/day. Oral Active 03/10/2018 [facility] cyanocobalamin (VITAMIN B-12) injection 1,000 mcg Intramuscular Active 03/08/2018 [facility] Cyanocobalamin (Vit B-12) 1,000 McG/Ml Injection Solution Intramuscular Active 03/08/2018 [facility] folic acid (FOLVITE) 1 mg tablet Take 1 tablet by mouth daily. Oral Active 03/08/2018 [facility] gabapentin (NEURONTIN) 600 mg tablet Take 1 tablet by mouth 3 times daily For anxiety. Oral Active 03/08/2018 [facility] mirtazapine (REMERON) 15 mg tablet Take 1 tablet by mouth at bedtime nightly For sleep. Oral Active 03/08/2018 [facility] PARoxetine (PAXIL) 10 mg tablet Take 1 tablet by mouth every morning For depression. Oral Active 03/08/2018 [facility] traZODone (DESYREL) 100 mg tablet Take 1 tablet by mouth at bedtime nightly For depression and sleep. Oral Active 03/08/2018 [facility] ciclesonide (ZETONNA) 37 mcg/actuation nasal HFA inhaler Use 1 [place] in each nostril daily For nasal congestion. Active 03/08/2018 [facility] gabapentin (NEURONTIN) 600 mg tablet Take 1 tablet by mouth 3 times daily For anxiety. Oral Active 03/08/2018 [facility] mirtazapine (REMERON) 15 mg tablet Take 1 tablet by mouth at bedtime nightly For sleep. Oral Active 03/08/2018 [facility] PARoxetine (PAXIL) 10 mg tablet Take 1 tablet by mouth every morning For depression. Oral Active 03/08/2018 [facility] ciclesonide (ZETONNA) 37 mcg/actuation nasal HFA inhaler Use 1 [place] in each nostril daily For nasal congestion. Active 03/08/2018 [facility] Folic Acid 1 Mg Tablet Take 1 tablet by mouth daily. Oral Active 03/08/2018 [facility] Gabapentin 600 Mg Tablet Neurontin 600 Mg Tablet Take 1 tablet by mouth 3 times daily For anxiety. Oral Active 03/08/2018 [facility] Mirtazapine 15 Mg Tablet Remeron 15 Mg Tablet Take 1 tablet by mouth at bedtime nightly For sleep. Oral Active 03/08/2018 [facility] Paroxetine 10 Mg Tablet Paxil 10 Mg Tablet Take 1 tablet by mouth every morning For depression. Oral Active 03/08/2018 [facility] Trazodone 100 Mg Tablet Take 1 tablet by mouth at bedtime nightly For depression and sleep. Oral Active 03/08/2018 [facility] Zetonna 37 McG/Actuation Nasal Hfa Inhaler Use 1 [place] in each nostril daily For nasal congestion. Active 03/08/2018 [facility] Gabapentin 300 Mg Capsule Take 1 capsule by mouth 3 times daily. Oral Active 02/21/2018 [facility] Chlordiazepoxide 25 Mg Capsule Take up to 2 tablets daily as needed for shaking and anxiety from alcohol withdrawal for 6 days.. Active 02/21/2018 [facility] Folic Acid 1 Mg Tablet Take 1 tablet by mouth daily. Oral No Longer Active 02/21/2018 [facility] gabapentin (NEURONTIN) 300 mg capsule Take 1 capsule by mouth 3 times daily. Oral Active 02/21/2018 [facility] chlordiazePOXIDE (LIBRIUM) 25 mg capsule Take up to 2 tablets daily as needed for shaking and anxiety from alcohol withdrawal for 6 days.. Active 02/21/2018 [facility] folic acid (FOLVITE) 1 mg tablet Take 1 tablet by mouth daily. Oral No Longer Active 02/21/2018 [facility] Allergies, Adverse Reactions, Alerts Substance Category Reaction Severity Reaction type Status Date Reported Comments Source Iodine Itching Medium Propensity to adverse reactions to drug Active 03/08/2018 [facility] Immunizations Immunization Date Given Site Status Last Updated Comments Source TDap (Tetanus Toxoid, Reduced Diphtheria Toxoid And Acellular Pertussis, Absorbed) 03/08/2018 Not Given Deferred: Patient Refused - pt has cold s/s today [facility] Tdap (Tetanus Toxoid, Reduced Diphtheria Toxoid And Acellular Pertussis, Absorbed) 03/08/2018 Not Given Deferred: Patient Refused - pt has cold s/s today [facility] Results Order Name Results Value Reference Range Date Interpretation Comments Source OCCULT BLOOD ICT <td ID="[id number]">Occult Blood ICT</td><td>Negative</td><td>NEG</td><td>[facility]</td><td ID="[id number]"/> Negative NEG 03/16/2018 [facility] BREANN BREANN Screen Negative NEG 03/13/2018 [facility] VIT D, 25-HYDROXY Vit D, 25-Hydroxy 10.4 30 - 100 03/10/2018 Vitamin D deficiency has been defined by the [place] [employer] and
Endocrine Society guideline as a level of serum 25-OH Vitamin D less than 20
ng/mL. The Endocrine Society further defines Vitamin D insufficiency as a
level between 21 and 29 ng/mL and sufficiency as a level between 30 and 100
ng/mL.

[facility] VIT D, 25-HYDROXY Lab Interpretation Abnormal 03/10/2018 [facility] SED RATE Sed Rate 80 <20 mm/Hr 03/10/2018 [facility] SED RATE Lab Interpretation Abnormal 03/10/2018 [facility] HEMOGLOBIN A1C <td ID="[id number]">Hemoglobin A1c</td><td>5.3</td><td>4.3 - 6.1 %</td><td>BT DIAGNOSTIC IMMUNOLOGY</td><td ID="[id number]"/> 5.3 4.3 - 6.1 03/10/2018 [facility] HEMOGLOBIN A1C Est Average Gluc 105.4 03/10/2018 [facility] CBC/DIFF <td ID="[id number]">WBC</td><td><span style="flagData">12.6</span><span style="flagData"> (H)</span></td><td>4.5 - 12.0 K/uL</td><td>[facility]-STATION 2</td><td ID="[id number]"/> 12.6 4.5 - 12 03/10/2018 [facility] CBC/DIFF <td ID="[id number]">RBC</td><td><span style="flagData">3.88</span><span style="flagData"> (L)</span></td><td>4.60 - 6.20 M/uL</td><td>BT MAIN-STATION 2</td><td ID="[id number]"/> 3.88 4.60 - 6.20 03/10/2018 [facility] CBC/DIFF <td ID="[id number]">Hemoglobin</td><td>14.0</td><td>14.0 - 18.0 g/dL</td><td>BT MAIN-STATION 2</td><td ID="[id number]"/> 14.0 14 - 18 03/10/2018 [facility] CBC/DIFF <td ID="[id number]">Hematocrit</td><td>42.4</td><td>40.0 - 54.0 %</td><td>BT MAIN-STATION 2</td><td ID="[id number]"/> 42.4 40 - 54 03/10/2018 [facility] CBC/DIFF <td ID="[id number]">MCV</td><td><span style="flagData">109</span><span style="flagData"> (H)</span></td><td>82 - 92 fL</td><td>BT MAIN-STATION 2</td><td ID="[id number]"/> 109 82 - 92 03/10/2018 [facility] CBC/DIFF <td ID="[id number]">MCH</td><td><span style="flagData">36.1</span><span style="flagData"> (H)</span></td><td>27.0 - 31.0 pg</td><td>BT MAIN-STATION 2</td><td ID="[id number]"/> 36.1 27 - 31 03/10/2018 [facility] CBC/DIFF <td ID="[id number]">MCHC</td><td>33.0</td><td>32.0 - 36.0 g/dL</td><td>BT MAIN-STATION 2</td><td ID="[id number]"/> 33.0 32 - 36 03/10/2018 [facility] CBC/DIFF <td ID="[id number]">RDW</td><td><span style="flagData">58.4</span><span style="flagData"> (H)</span></td><td>35.1 - 43.9 fL</td><td>BT [facility]IN-STATION 2</td><td ID="[id number]"/> 58.4 35.1 - 43.9 03/10/2018 [facility] CBC/DIFF <td ID="[id number]">Platelets</td><td>219</td><td>150 - 400 K/uL</td><td>BT MAIN-STATION 2</td><td ID="[id number]"/> 219 150 - 400 03/10/2018 [facility] CBC/DIFF <td ID="[id number]">Mean Platelet Volume</td><td><span style="flagData">12.8</span><span style="flagData"> (H)</span></td><td>9.4 - 12.4 fL</td><td>BT MAIN-STATION 2</td><td ID="[id number]"/> 12.8 9.4 - 12.4 03/10/2018 [facility] CBC/DIFF Percent NRBC 0.0 03/10/2018 [facility] CBC/DIFF Absolute NRBC 0.00 03/10/2018 [facility] CBC/DIFF <td ID="[id number]">Neutrophils</td><td><span style="flagData">69.6</span><span style="flagData"> (H)</span></td><td>34.0 - 67.9 %</td><td>BT MAIN-STATION 2</td><td ID="[id number]"/> 69.6 34 - 67.9 03/10/2018 [facility] CBC/DIFF <td ID="[id number]">Lymphs</td><td><span style="flagData">15.6</span><span style="flagData"> (L)</span></td><td>21.8 - 50.0 %</td><td>BT MAIN-STATION 2</td><td ID="[id number]"/> 15.6 21.8 - 50 03/10/2018 [facility] CBC/DIFF <td ID="[id number]">Monocytes</td><td>11.5</td><td>5.3 - 12.0 %</td><td>BT MAIN-STATION 2</td><td ID="[id number]"/> 11.5 5.3 - 12 03/10/2018 [facility] CBC/DIFF <td ID="[id number]">Eos</td><td>2.3</td><td>0.8 - 5.0 %</td><td>BT MAIN-STATION 2</td><td ID="[id number]"/> 2.3 0.8 - 5 03/10/2018 [facility] CBC/DIFF <td ID="[id number]">Basos</td><td>0.5</td><td>0.2 - 1.2 %</td><td>BT MAIN-STATION 2</td><td ID="[id number]"/> 0.5 0.2 - 1.2 03/10/2018 [facility] CBC/DIFF Immature Granulocytes 0.5 0.0 - 0.5 03/10/2018 [facility] CBC/DIFF Neutrophils (Absolute) 8.79 1.78 - 5.36 03/10/2018 [facility] CBC/DIFF Lymphs (Absolute) 1.97 1.32 - 3.57 03/10/2018 [facility] CBC/DIFF Monocytes(Absolute) 1.45 0.3 - 0.82 03/10/2018 [facility] CBC/DIFF Eos (Absolute) 0.29 0.04 - 0.54 03/10/2018 [facility] CBC/DIFF Baso (Absolute) 0.06 0.01 - 0.08 03/10/2018 [facility] CBC/DIFF Immature Grans (Abs) 0.06 0 - 0.03 03/10/2018 [facility] CBC/DIFF Lab Interpretation Abnormal 03/10/2018 [facility] RA FACTOR RA Factor <10 <14 IU/mL 03/10/2018 [facility] TSH <td ID="[id number]">TSH</td><td>1.73</td><td>0.57 - 3.74 uIU/mL</td><td>BT MAIN-STATION 1</td><td ID="[id number]"/> 1.73 0.57 - 3.74 03/10/2018 [facility] LIPID PROFILE <td ID="[id number]">Cholesterol</td><td><span>196</span>
<span style="allIndent"><span style="cellHeader">Comment: </span>
<span ID="[id number]" style="pre">REFERENCE RANGE:
Desirable: <200 mg/dL
Borderline: 200-240 mg/dL
High Risk: >240 mg/dL

</span></span></td><td>mg/dL</td><td>BT MAIN-STATION 1</td><td ID=&amp ;quot;[id number]"/> 196 03/10/2018 REFERENCE RANGE:
Desirable: <200 mg/dL
Borderline: 200-240 mg/dL
High Risk: >240 mg/dL

[facility] LIPID PROFILE <td ID="[id number]">Triglyceride</td><td><span>139</span>
<span style="allIndent"><span style="cellHeader">Comment: </span>
<span ID="[id number]" style="pre">REFERENCE RANGE:
Normal: <150 mg/dL
Borderline High: 150-199 mg/dL
High: 200-499 mg/dL
Very High: >fl=593 mg/dL

</span></span></td><td><150 mg/dL</td><td>BT MAIN-STATION 1</td><td ID="[id number]"/> 139 <150 03/10/2018 REFERENCE RANGE:
Normal: <150 mg/dL
Borderline High: 150-199 mg/dL
High: 200-499 mg/dL
Very High: >wx=032 mg/dL

[facility] LIPID PROFILE <td ID="[id number]">HDL</td><td><span>37</span>
<span style="allIndent"><span style="cellHeader">Comment: </span>
<span ID="[id number]" style="pre">Increased CHD risk: <40 mg/dL
Decreased CHD risk: >60 mg/dL

</span></span>&am p;lt;/td><td>mg/dL</td><td>BT MAIN-STATION 1</td><td ID="[id number]"/> 37 03/10/2018 Increased CHD risk: <40 mg/dL
Decreased CHD risk: >60 mg/dL

[facility] LIPID PROFILE <td ID="[id number]">LDL</td><td><span>131</span>
<span style="allIndent"><span style="cellHeader">Comment: </span>
<span ID="[id number]" style="pre">REFERENCE RANGE:
Optimal: <100 mg/dL
Near Optimal: 100-129 mg/dL
Borderline High: 130-159 mg/dL
High: 160-189 mg/dL
Very High: >ph=203 mg/dL

</span></span></td><td>mg/dL</td><td>BT MAIN-STATION 1</td><td ID="[id number]"/> 131 03/10/2018 REFERENCE RANGE:
Optimal: <100 mg/dL
Near Optimal: 100-129 mg/dL
Borderline High: 130-159 mg/dL
High: 160-189 mg/dL
Very High: >fq=606 mg/dL

[facility] LIVER PROFILE <td ID="[id number]">Protein, Total, Serum</td><td>7.1</td><td>6.0 - 8.3 g/dL</td><td>BT MAIN-STATION 1</td><td ID="[id number]"/> 7.1 6 - 8.3 03/10/2018 [facility] LIVER PROFILE <td ID="[id number]">Albumin</td><td>4.3</td><td>4.2 - 5.5 g/dL</td><td>BT MAIN-STATION 1</td><td ID="[id number]"/> 4.3 4.2 - 5.5 03/10/2018 [facility] LIVER PROFILE <td ID="[id number]">Bilirubin, Total</td><td>0.8</td><td>0.2 - 1.2 mg/dL</td><td>BT MAIN-STATION 1</td><td ID="[id number]"/> 0.8 0.2 - 1.2 03/10/2018 [facility] LIVER PROFILE <td ID="[id number]">Alkaline Phosphatase, S</td><td>72</td><td>34 - 104 U/L</td><td>BT MAIN-STATION 1</td><td ID="[id number]"/> 72 34 - 104 03/10/2018 [facility] LIVER PROFILE <td ID="[id number]">AST (SGOT)</td><td>17</td><td>13 - 39 U/L</td><td>BT MAIN-STATION 1</td><td ID="[id number]"/> 17 13 - 39 03/10/2018 [facility] LIVER PROFILE <td ID="[id number]">ALT</td><td>24</td><td>7 - 52 U/L</td><td>BT MAIN-STATION 1</td><td ID="[id number]"/> 24 7 - 52 03/10/2018 [facility] LIVER PROFILE <td ID="[id number]">D Bilirubin</td><td>0.2</td><td>0.0 - 0.2 mg/dL</td><td>BT MAIN-STATION 1</td><td ID="[id number]"/> 0.2 0 - 0.2 03/10/2018 [facility] PSA Prostate Specific Ag, Serum 0.80 <4.1 03/10/2018 [facility] UA CHEMISTRIES <td ID="[id number]">Color</td><td>Yellow</td><td/><td>BT MAIN-STATION 3</td><td ID="[id number]"/> Yellow 03/09/2018 [facility] UA CHEMISTRIES Clarity Clear 03/09/2018 [facility] UA CHEMISTRIES <td ID="Mqfckr998815773Tdmk2Qemj">Specific Holt</td><td>1.025</td><td>1.001 - 1.035</td><td>BT MAIN-STATION 3</td><td ID="[id number]"/> 1.025 1.001 - 1.035 03/09/2018 [facility] UA CHEMISTRIES <td ID="[id number]">pH</td><td>5.0</td><td>5 - 8</td><td>BT MAIN-STATION 3</td><td ID="[id number]"/> 5.0 5 - 8 03/09/2018 [facility] UA CHEMISTRIES <td ID="[id number]">Protein</td><td><span style="flagData">1+</span><span style="flagData"> (A)</span></td><td>NEG</td><td>BT MAIN-STATION 3</td><td ID=&quot ;[id number]"/> 1+ NEG 03/09/2018 [facility] UA CHEMISTRIES <td ID="[id number]">Glucose</td><td>Negative</td><td>NEG</td><td>BT MAIN-STATION 3</td><td ID="[id number]"/> Negative NEG 03/09/2018 [facility] UA CHEMISTRIES <td ID="[id number]">Ketones</td><td><span style="flagData">Trace</span><span style="flagData"> (A)</span></td><td>NEG</td><td>BT MAIN-STATION 3</td><td ID=&q uot;[id number]"/> Trace NEG 03/09/2018 [facility] UA CHEMISTRIES <td ID="[id number]">Bilirubin</td><td>Negative</td><td>NEG</td><td>BT MAIN-STATION 3</td><td ID="[id number]"/> Negative NEG 03/09/2018 [facility] UA CHEMISTRIES <td ID="[id number]">Nitrate</td><td>Negative</td><td>NEG</td><td>BT MAIN-STATION 3</td><td ID="[id number]"/> Negative NEG 03/09/2018 [facility] UA CHEMISTRIES <td ID="[id number]">Urobilinogen,Semi- Qn</td><td><1.0</td><td>0.2 - 1.0 EU/dL</td><td>BT MAIN-STATION 3</td><td ID="[id number]"/> <1.0 0.2 - 1 03/09/2018 [facility] UA CHEMISTRIES <td ID="[id number]">Leukocyte</td><td>Negative</td><td>NEG</td><td>BT MAIN-STATION 3</td><td ID="[id number]"/> Negative NEG 03/09/2018 [facility] UA CHEMISTRIES Occult Blood Negative NEG 03/09/2018 [facility] UA CHEMISTRIES RBC 1 0 - 4 03/09/2018 [facility] UA CHEMISTRIES WBC <1 0 - 5 03/09/2018 [facility] UA CHEMISTRIES Epithelial Cell <1 /HPF 03/09/2018 [facility] UA CHEMISTRIES Mucous Present 03/09/2018 [facility] UA CHEMISTRIES Lab Interpretation Abnormal 03/09/2018 [facility] URINE CULTURE Culture No growth 2 days BT MICROBIOLOGY 03/09/2018 [facility] URINE CULTURE Culture No growth 2 days BT MICROBIOLOGY 03/09/2018 [facility] 12 LEAD EKG 12 LEAD EKG FOR [facility] Test Date:2018-03-08 Pat Name: LINDY AQUINODepartment: : Gender: MTechnician: :[id number] Requested By: Order Number:Fiorella MD: Krissy Pritchett M.D. Measurements IntervalsAxis Rate: 106P:57 MI: 136QRS:-46 QRSD: 78 T:57 QT: 330 QTc:438 Interpretive Statements SINUS TACHYCARDIA POSSIBLE LEFT ATRIAL ENLARGEMENT LEFT ANTERIOR FASCICULAR BLOCK Electronically Signed On 03-08-18 17:56:49 CDT by Krissy Pritchett M.D. 03/08/2018 [facility] VITAMIN B12 Vitamin B12 183 211 - 911 02/21/2018 [facility] VITAMIN B12 Lab Interpretation Abnormal 02/21/2018 [facility] FOLIC ACID Folic Acid 4.9 5.9 - 24.8 02/21/2018 [facility] FOLIC ACID Lab Interpretation Abnormal 02/21/2018 [facility] BASIC METABOLIC PANEL <td ID="[id number]">CO2</td><td>27</td><td>21 - 31 mmol/L</td><td>BT MAIN-STATION 1</td><td ID="[id number]"/> 27 21 - 31 02/21/2018 [facility] BASIC METABOLIC PANEL <td ID="[id number]">Chloride</td><td>105</td><td>98 - 107 mmol/L</td><td>BT MAIN-STATION 1</td><td ID="[id number]"/> 105 98 - 107 02/21/2018 [facility] BASIC METABOLIC PANEL <td ID="[id number]">Potassium</td><td><span style="flagData">3.3</span><span style="flagData"> (L)</span></td><td>3.5 - 5.1 mmol/L</td><td>BT MAIN-STATION 1</td><td ID="[id number]"/> 3.3 3.5 - 5.1 02/21/2018 [facility] BASIC METABOLIC PANEL <td ID="[id number]">Sodium</td><td>144</td><td>136 - 145 mmol/L</td><td>BT MAIN-STATION 1</td><td ID="[id number]"/> 144 136 - 145 02/21/2018 [facility] BASIC METABOLIC PANEL <td ID="[id number]">Glucose</td><td><span style="flagData">128</span><span style="flagData"> (H)</span></td><td>70 - 110 mg/dL</td><td>BT MAIN-STATION 1</td><td ID="[id number]"/> 128 70 - 110 02/21/2018 [facility] BASIC METABOLIC PANEL <td ID="[id number]">BUN</td><td>8</td><td>7 - 25 mg/dL</td><td>BT MAIN-STATION 1</td><td ID="[id number]"/> 8 7 - 25 02/21/2018 [facility] BASIC METABOLIC PANEL <td ID="[id number]">Creatinine</td><td>0.80</td><td>0.7 - 1.3 mg/dL</td><td>BT MAIN-STATION 1</td><td ID="[id number]"/> 0.80 0.7 - 1.3 02/21/2018 [facility] BASIC METABOLIC PANEL Anion Gap 12 02/21/2018 [facility] BASIC METABOLIC PANEL <td ID="[id number]">Calcium</td><td><span style="flagData">8.1</span><span style="flagData"> (L)</span></td><td>8.6 - 10.3 mg/dL</td><td>BT MAIN-STATION 1</td><td ID="[id number]"/> 8.1 8.6 - 10.3 02/21/2018 [facility] [...] BASIC METABOLIC PANEL Lab Interpretation Abnormal 02/21/2018 [facility] FOLIC ACID Folic Acid 4.9 5.9 - 24.8 02/21/2018 [facility] FOLIC ACID Lab Interpretation Abnormal 02/21/2018 [facility] VITAMIN B12 Vitamin B12 183 211 - 911 02/21/2018 Low [facility] VITAMIN B12 Lab Interpretation Abnormal 02/21/2018 [facility] URINE DRUG SCREEN <td ID="[id number]">Amphetamine</td><td><span>Negative</span>
<span style="allIndent"><span style="cellHeader">Comment: </span>
<span ID="[id number]" style="pre">Calibrated Standard: D- Methamphetamine
Positive if urine level >jx=5891 ng/mL
Test performed on [id number] using EMIT Immunoassay

</span></span></td><td>NEG</td><td>BT MAIN-STATION 1</td><td ID="[id number]"/> Negative NEG 02/20/2018 Calibrated Standard: D-Methamphetamine
Positive if urine level >dm=4457 ng/mL
Test performed on [id number] using EMIT Immunoassay

[facility] URINE DRUG SCREEN <td ID="[id number]">Barbiturate</td><td><span>Negative</span>
<span style="allIndent"><span style="cellHeader">Comment: </span>
<span ID="[id number]" style="pre">Calibrated Standard: Secobarbital
Positive if urine level is >qk=263 ng/mL
Test performed on [id number] using EMIT Immunoassay

</span></span></td><td>NEG</td><td>BT MAIN-STATION 1</td><td ID="[id number]"/> Negative NEG 02/20/2018 Calibrated Standard: Secobarbital
Positive if urine level is >kc=794 ng/mL
Test performed on UZ2700 using EMIT Immunoassay

[facility] URINE DRUG SCREEN <td ID="[id number]">Benzodiazepine</td><td><span style="flagData">Positive</span><span style="flagData"> (A)</span>
<span style="allIndent"><span style="cellHeader">Comment: </span>
<span ID="[id number]" style="pre">Calibrated Standard: Lormethazepam
Positive if urine level is >gj=324 ng/mL
Test performed on [id number] using EMIT Immunoassay

</span></span&g t;</td><td>NEG</td><td>BT MAIN-STATION 1</td><td ID="[id number]"/> Positive NEG 02/20/2018 Calibrated Standard: Lormethazepam
Positive if urine level is >eo=556 ng/mL
Test performed on [id number] using EMIT Immunoassay

[facility] URINE DRUG SCREEN <td ID="[id number]">Cannabinoid</td><td><span>Negative</span>
<span style="allIndent"><span style="cellHeader">Comment: </span>
<span ID="[id number]" style="pre"> Calibrated Standard: 11 nor-delta(9)-THC carboxylic a
Positive if urine level >or=50
Test performed on ES3567 using EMIT Immunoassay

</span></span></td><td>NEG</td><td>BT MAIN-STATION 1</td><td ID="[id number]"/> Negative NEG 02/20/2018 Calibrated Standard: 11 nor-delta(9)-THC carboxylic a
Positive if urine level >or=50
Test performed on EL0640 using EMIT Immunoassay

[facility] URINE DRUG SCREEN <td ID="[id number]">Cocaine</td><td><span>Negative</span>
<span style="allIndent"><span style="cellHeader">Comment: </span>
<span ID="[id number]" style="pre"> Calibrated Standard: Benzoylecgonine
Positive if urine level >gq=025
Test performed on [id number] using EMIT Immunoassay

</span></span></td><td>NEG</td><td>BT MAIN-STATION 1</td><td I D="[id number]"/> Negative NEG 02/20/2018 Calibrated Standard: Benzoylecgonine
Positive if urine level >ye=741
Test performed on [id number] using EMIT Immunoassay

[facility] URINE DRUG SCREEN <td ID="[id number]">Opiate, Ur</td><td><span>Negative</span>
<span style="allIndent"><span style="cellHeader">Comment: </span>
<span ID="[id number]" style="pre"> Calibrated Standard: Morphine
Positive if urine level >us=717
Test performed on [id number] using EMIT Immunoassay

</span></span></td><td>NEG</td><td>BT MAIN-STATION 1</td><td ID="[id number]"/> Negative NEG 02/20/2018 Calibrated Standard: Morphine
Positive if urine level >fo=026
Test performed on MO8288 using EMIT Immunoassay

[facility] URINE DRUG SCREEN <td ID="[id number]">PCP</td><td><span>Negative</span>
<span style="allIndent"><span style="cellHeader">Comment: </span>
<span ID="[id number]" style="pre"> Calibrated Standard: Phencyclidine
Positive if urine level >or=25
Test performed on [id number] using EMIT Immunoassay
Urine Toxicology Screen results are to be used only for Medical purposes.

</span></span></td><td>NEG</td><td>BT MAIN- STATION 1</td><td ID="[id number]"/> Negative NEG 02/20/2018 Calibrated Standard: Phencyclidine
Positive if urine level >or=25
Test performed on [id number] using EMIT Immunoassay
Urine Toxicology Screen results are to be used only for Medical purposes.

[facility] URINE DRUG SCREEN Lab Interpretation Abnormal 02/20/2018 [facility] POC CO2 POC 25 21 - 32 02/20/2018 [facility] POC Chloride POC 104 98 - 107 02/20/2018 [facility] POC Potassium POC 3.8 3.5 - 5.1 02/20/2018 [facility] POC Sodium POC 144 136 - 145 02/20/2018 [facility] POC <td ID="[id number]">Glucose POC</td><td>78</td><td>74 - 106 mg/dL</td><td>BT MAIN-STATION 1</td><td ID="[id number]"/> 78 74 - 106 02/20/2018 [facility] POC Urea Nitrogen POC 15 7 - 18 02/20/2018 [facility] POC Creatinine POC 1.0 0.6 - 1.3 02/20/2018 [facility] POC Calcium Ionized POC 0.96 1.15 - 1.29 02/20/2018 [facility] POC Hemoglobin POC 12.9 14 - 18 02/20/2018 [facility] POC Hematocrit POC 38.0 40 - 54 02/20/2018 [facility] POC GFR, Estimated >60 mL/min/1.73 m2 02/20/2018 [facility] POC GFR, Estim, Afr-Am >60 mL/min/1.73 m2 02/20/2018 [facility] POC Lab Interpretation Abnormal 02/20/2018 [facility] POC CO2 POC 25 21 - 32 02/20/2018 [facility] POC Chloride POC 104 98 - 107 02/20/2018 [facility] POC Potassium POC 3.8 3.5 - 5.1 02/20/2018 [facility] POC Sodium POC 144 136 - 145 02/20/2018 [facility] POC Glucose POC 78 74 - 106 02/20/2018 [facility] POC Urea Nitrogen POC 15 7 - 18 02/20/2018 [facility] POC Creatinine POC 1.0 0.6 - 1.3 02/20/2018 [facility] POC Calcium Ionized POC 0.96 1.15 - 1.29 02/20/2018 Low [facility] POC Hemoglobin POC 12.9 14 - 18 02/20/2018 Low [facility] POC Hematocrit POC 38.0 40 - 54 02/20/2018 Low [facility] POC GFR, Estimated >60 mL/min/1.73 m2 02/20/2018 [facility] POC GFR, Estim, Afr-Am >60 mL/min/1.73 m2 02/20/2018 [facility] POC Lab Interpretation Abnormal 02/20/2018 [place] [address] LEAD EKG 12 LEAD EKG FOR [facility] Test Date:2018-02-19 Pat Name: LINDY AQUINODepartment: : Gender: MTechnician: :[id number] Requested By: Order Number:Fiorella MD: Gracie Avila Measurements IntervalsAxis Rate: 121P:40 MI: 144QRS:-38 QRSD: 74 T:53 QT: 336 QTc:478 Interpretive Statements SINUS TACHYCARDIA MARKED LEFT AXIS DEVIATION LOW QRS VOLTAGE IN PRECORDIAL LEADS PATTERN CONSISTENT WITH PULMONARY DISEASE Electronically Signed On 02-20-18 00:02:33 CDT by Gracie Avila 02/20/2018 [facility] HEPATITIS PANEL <td ID="[id number]">HCV IgG</td><td>Negative</td><td>NEG</td><td>BT MAIN-STATION 4</td><td ID="[id number]"/> Negative NEG 02/20/2018 [facility] HEPATITIS PANEL <td ID="[id number]">HBsAg</td><td>Negative</td><td>NEG</td><td>BT MAIN-STATION 4</td><td ID="[id number]"/> Negative NEG 02/20/2018 [facility] HEPATITIS PANEL <td ID="[id number]">HAV, IgM</td><td>Negative</td><td>NEG</td><td>BT MAIN-STATION 4</td><td ID="[id number]"/> Negative NEG 02/20/2018 [facility] HEPATITIS PANEL <td ID="[id number]">HBcAb, IgM</td><td>Negative</td><td>NEG</td><td>BT MAIN-STATION 4</td><td ID="[id number]"/> Negative NEG 02/20/2018 [facility] HIV-1/HIV-2 ROUTINE SCREENING <td ID="[id number]">HIV-1/HIV-2</td><td>Negative</td><td>NEG</td><td>BT MAIN-STATION 4</td><td ID="[id number]"/> Negative NEG 02/20/2018 [facility] ACETAMINOPHEN Acetaminophen <10.00 10 - 30 02/20/2018 Test performed on [id number] using EMIT Immunoassay [facility] ACETAMINOPHEN Lab Interpretation Abnormal 02/20/2018 [facility] ALCOHOL Alcohol <0.010 <0.1 g/dL 02/20/2018 [facility] ALCOHOL, MEDICAL USE ONLY Alcohol <0.010 <0.1 g/dL 02/20/2018 [facility] SALICYLATE Salicylate <2.5 2.8 - 30 02/20/2018 Test performed on [id number] using EMIT Immunoassay [facility] SALICYLATE Lab Interpretation Abnormal 02/20/2018 [facility] TROPONIN I POC Troponin POC 0.01 0 - 0.08 [facility] 7.42 7.33 - 7.43 [facility] pCO2, [facility] POC 33.9 38.0 - 50.0 02/20/[facility] pO2, [facility] POC 38 50 - 75 02/20/2018 [facility] VBG POC Base Deficit, Misael POC 2 [facility]/20[facility] HCO3, Misael POC 22.2 22 - 26 02/20/2018 [facility] VBG POC % Sat, Misael POC 74 60 - 85 02/20/2018 [facility] VBG POC Lactic Acid, Misael POC 1.86 0.4 - 2 02/20/2018 [facility] VBG POC TCO2, MISAEL POC 23 21 - 32 02/20/2018 [facility] VBG POC Lab Interpretation Abnormal 02/20/2018 [facility] 12 LEAD EKG 12 LEAD EKG FOR [facility] Test Date:2018-02-19 Pat Name: LINDY AQUINODepartment: : Gender: MTechnician: :[id number] Requested By: Order Number:Reading MD: Gracie Avila Measurements IntervalsAxis Rate: 121P:40 MI: 144QRS:-38 QRSD: 74 T:53 QT: 336 QTc:478 Interpretive Statements SINUS TACHYCARDIA MARKED LEFT AXIS DEVIATION LOW QRS VOLTAGE IN PRECORDIAL LEADS PATTERN CONSISTENT WITH PULMONARY DISEASE Electronically Signed On 02-20-18 00:02:33 CDT by Gracie Avila 02/19/2018 [facility] VBG POC pH, Misael POC 7.42 7.33 - 7.43 02/19[facility] pCO2, Misael POC 33.9 mm Hg 38.0 - 50.0 02/19/2018 [facility] pO2, Misael POC 38 mm Hg 50 - 75 02/19/2018 Low [facility] VBG POC Base Deficit, Misael POC 2 02/19/2018 [facility] VBG POC HCO3, Misael POC 22.2 22 - 26 02/19/2018 [facility] VBG POC % Sat, Misael POC 74 60 - 85 02/19/2018 [facility] VBG POC Lactic Acid, Misael POC 1.86 0.4 - 2 02/19/2018 [facility] VBG POC TCO2, MISAEL POC 23 21 - 32 02/19/2018 [facility] VBG POC Lab Interpretation Abnormal 02/19/2018 [facility] TROPONIN I POC Troponin POC 0.01 0 - 0.08 02/19/2018 [facility] ACETAMINOPHEN Acetaminophen <10.00 10 - 30 02/19/2018 Low Test performed on [id number] using EMIT Immunoassay [facility] ACETAMINOPHEN Lab Interpretation Abnormal 02/19/2018 [facility] ALCOHOL Alcohol <0.010 <0.1 g/dL 02/19/2018 [facility] CBC/DIFF WBC 10.3 4.5 - 12 02/19/2018 [facility] CBC/DIFF RBC 3.61 M/uL 4.60 - 6.20 02/19/2018 Low [facility] CBC/DIFF Hemoglobin 12.9 14 - 18 02/19/2018 [facility] CBC/DIFF Hematocrit 38.2 40 - 54 02/19/2018 [facility] CBC/DIFF MCV 106 82 - 92 02/19/2018 CBC/DIFF MCH 35.7 27 - 31 02/19/2018 CBC/DIFF MCHC 33.8 32 - 36 02/19/2018 [facility] CBC/DIFF RDW 61.0 35.1 - 43.9 02/19/2018 CBC/DIFF Platelet 174 150 - 400 02/19/2018 [facility] CBC/DIFF Mean Platelet Volume 11.8 9.4 - 12.4 02/19/2018 [facility] CBC/DIFF Percent NRBC 0.0 02/19/2018 [facility] CBC/DIFF Absolute NRBC 0.00 02/19/2018 [facility] CBC/DIFF Neutrophil 70.0 34 - 67.9 02/19/2018 CBC/DIFF Lymphocyte 13.0 21.8 - 50 02/19/2018 [facility] CBC/DIFF Monocyte 14.0 5.3 - 12 02/19/2018 CBC/DIFF Eosinophil 2.0 0.8 - 5 02/19/2018 [facility] CBC/DIFF Basophil 1.0 0.2 - 1.2 02/19/2018 [facility] CBC/DIFF Neutrophil, Abs 7.22 1.78 - 5.36 02/19/2018 High [facility] CBC/DIFF Lymphocyte, Abs 1.34 1.32 - 3.57 02/19/2018 [facility] CBC/DIFF Monocyte, Abs 1.44 0.3 - 0.82 02/19/2018 High [facility] CBC/DIFF Eosinophil, Abs 0.21 0.04 - 0.54 02/19/2018 [facility] CBC/DIFF Basophil, Abs 0.10 0.01 - 0.08 02/19/2018 [facility] CBC/DIFF Lab Interpretation Abnormal 02/19/2018 [facility] HEPATITIS PANEL HCV IgG Negative NEG 02/19/2018 [facility] HEPATITIS PANEL HBsAg Negative NEG 02/19/2018 [facility] HEPATITIS PANEL HAV, IgM Negative NEG 02/19/2018 [facility] HEPATITIS PANEL HBcAb, IgM Negative NEG 02/19/2018 [facility] HIV-1/HIV-2 ROUTINE SCREENING HIV-1/HIV-2 Negative NEG 02/19/2018 [facility] LIVER PROFILE T Protein 6.8 6 - 8.3 02/19/2018 [facility] LIVER PROFILE Albumin 4.5 4.2 - 5.5 02/19/2018 [facility] LIVER PROFILE T Bilirubin 1.2 0.2 - 1.2 02/19/2018 [facility] LIVER PROFILE Alk Phos 56 34 - 104 02/19/2018 [facility] LIVER PROFILE AST 27 13 - 39 02/19/2018 [facility] LIVER PROFILE ALT 20 7 - 52 02/19/2018 [facility] LIVER PROFILE D Bilirubin 0.4 0 - 0.2 02/19/2018 High [facility] LIVER PROFILE Lab Interpretation Abnormal 02/19/2018 [facility] SALICYLATE Salicylate <2.5 2.8 - 30 02/19/2018 Low Test performed on [id number] using EMIT Immunoassay [facility] SALICYLATE Lab Interpretation Abnormal 02/19/2018 [facility] UA CHEMISTRIES Color Yellow 02/19/2018 [facility] UA CHEMISTRIES Clarity Clear 02/19/2018 [facility] UA CHEMISTRIES Spec Holt 1.025 1.001 - 1.035 02/19/2018 [facility] UA CHEMISTRIES pH 5.0 5 - 8 02/19/2018 [facility] UA CHEMISTRIES Protein 1+ NEG 02/19/2018 Abnormal [facility] UA CHEMISTRIES Glucose Negative NEG 02/19/2018 [facility] UA CHEMISTRIES Ketone 1+ NEG 02/19/2018 Abnormal [facility] UA CHEMISTRIES Bilirubin Negative NEG 02/19/2018 [facility] UA CHEMISTRIES Nitrate Negative NEG 02/19/2018 [facility] UA CHEMISTRIES Urobilinogen 2.0 0.2 - 1 02/19/2018 High [facility] UA CHEMISTRIES Leukocyte Negative NEG 02/19/2018 [facility] UA CHEMISTRIES Blood Negative NEG 02/19/2018 [facility] UA CHEMISTRIES RBC 1 /HPF 0 - 4 02/19/2018 [facility] UA CHEMISTRIES WBC 1 /HPF 0 - 5 02/19/2018 [facility] UA CHEMISTRIES Epithelial Cell <1 /HPF 02/19/2018 [facility] UA CHEMISTRIES Mucous Present 02/19/2018 [facility] UA CHEMISTRIES Hyaline Cast 2 /LPF 02/19/2018 [facility] UA CHEMISTRIES Lab Interpretation Abnormal 02/19/2018 [facility] URINE DRUG SCREEN Amphetamine Negative NEG 02/19/2018 Calibrated Standard: D-Methamphetamine
Positive if urine level >dy=7315 ng/mL
Test performed on [id number] using EMIT Immunoassay

[facility] URINE DRUG SCREEN Barbiturate Negative NEG 02/19/2018 Calibrated Standard: Secobarbital
Positive if urine level is >co=546 ng/mL
Test performed on [id number] using EMIT Immunoassay

[facility] URINE DRUG SCREEN Benzodiazepine Positive NEG 02/19/2018 Abnormal Calibrated Standard: Lormethazepam
Positive if urine level is >dt=526 ng/mL
Test performed on [id number] using EMIT Immunoassay

[facility] URINE DRUG SCREEN Cannabinoid Negative NEG 02/19/2018 Calibrated Standard: 11 nor-delta(9)-THC carboxylic a
Positive if urine level >or=50
Test performed on [id number] using EMIT Immunoassay

[facility] URINE DRUG SCREEN Cocaine Negative NEG 02/19/2018 Calibrated Standard: Benzoylecgonine
Positive if urine level >yg=121
Test performed on [id number] using EMIT Immunoassay

[facility] URINE DRUG SCREEN Opiate, Ur Negative NEG 02/19/2018 Calibrated Standard: Morphine
Positive if urine level >rs=302
Test performed on [id number] using EMIT Immunoassay

[facility] URINE DRUG SCREEN PCP Negative NEG 02/19/2018 Calibrated Standard: Phencyclidine
Positive if urine level >or=25
Test performed on [id number] using EMIT Immunoassay
Urine Toxicology Screen results are to be used only for Medical purposes.

[facility] URINE DRUG SCREEN Lab Interpretation Abnormal 02/19/2018 [facility] Pathology Reports No Data Provided for This [...] R Mendes MD, 02/20/2018 12:06 AM 02/20/2018 [facility] [address] HEAD W/O CONTRAST IMPRESSION:1.No acute intracranial [...] R Mendes MD, 02/20/2018 12:06 AM 02/19/2018 [facility] Spine cervical wo contrast MRI MRI CERVICAL [...] of the cervical spine. SL: 16 11/19/2014 [facility] Consultation Notes No Data Provided for This Section Discharge Summaries No Data Provided for This Section History and Physicals No Data Provided for This Section Vital Signs Vital Sign Value Date Comments Source Systolic (mm Hg) 121 03/08/2018 [facility] Diastolic (mm Hg) 80 03/08/2018 [facility] Heart Rate 101 03/08/2018 [facility] Temperature Oral (F) 36.72 Pamella 03/08/2018 [facility] Respitory Rate 20 03/08/2018 [facility] Height 175.3 cm 03/08/2018 [facility] Weight 77.565 03/08/2018 [facility] BMI Calculated 25.25 03/08/2018 [facility] Systolic (mm Hg) 137 02/23/2018 [facility] Diastolic (mm Hg) 68 02/23/2018 [facility] Heart Rate 98 02/23/2018 [facility] Temperature Oral (F) 37.39 Pamella 02/23/2018 [facility] Respitory Rate 18 02/23/2018 [facility] Systolic (mm Hg) 146 02/21/2018 [facility] Diastolic (mm Hg) 88 02/21/2018 [facility] Heart Rate 79 02/21/2018 [facility] Temperature Oral (F) 37 Pamella 02/21/2018 [facility] Respitory Rate 21 02/21/2018 [facility] Height 177.8 cm 02/20/2018 [facility] Weight 72.576 02/20/2018 [facility] BMI Calculated 22.96 02/20/2018 [facility] Encounters Location Location Details Encounter Type Encounter Number Reason For Visit Attending Provider ADM Date DC Date Status Source [facility] Outpatient [id number] Elver Aguirre 11/19/2014 11/20/2014 [facility] 4A Surgical Specialty Unit (4ASurg) [facility] Encounter [id number] Braden Conte MD 02/20/2018 02/21/2018 [facility] [id number] Haider Zavala 02/22/2018 02/23/2018 [facility] [place] [facility] [id number] 02/23/2018 [facility] [place] Orders Only [id number] Paola Stone MD 03/08/2018 [facility] [employer] [place] Clinical Case Mgt [id number] Eunice Travis RN 03/08/2018 [facility] [place] [facility] Visit [id number] 03/08/2018 [facility] [place] Office Visit [id number] Paola Stone MD 03/08/2018 03/08/2018 [facility] [place] Telephone [id number] Paola Stone MD 03/10/2018 [facility] [place] Orders Only [id number] Paola Stone MD 03/10/2018 [facility] [place] [facility] Visit [id number] 03/13/2018 [facility] [place] [facility] Visit [id number] 03/14/2018 [facility] [place] [facility] Visit [id number] 03/17/2018 [facility] Nuclear Medicine [facility] Encounter [id number] Paola Stone MD 04/07/2018 04/07/2018 [facility] Travel [id number] 01/07/2019 [facility] Procedures Procedure Code Date Perfomer Comments Source OCCULT BLOOD ICT 47909 03/10/2018 [facility] FECAL OCCULT BLOOD 70644 03/10/2018 [facility] URINE CULTURE 79047 03/09/2018 [facility] BREANN [id number] 03/09/2018 [facility] SED RATE 31436 03/09/2018 [facility] HEMOGLOBIN A1C 30502 03/09/2018 [facility] LIPID PROFILE 82158 03/09/2018 [facility] PSA 87893 03/09/2018 [facility] RA FACTOR [id number] 03/09/2018 [facility] TSH 74247 03/09/2018 [facility] VIT D, 25-HYDROXY 16302 03/09/2018 [facility] PROSTATE SPECIFIC ANTIGEN (PSA) 64224 03/09/2018 [facility] THYROID STIMULATING HORMONE (TSH) 07350 03/09/2018 [facility] CONSULT CLINICAL CASE MANAGEMENT (RN/SW) 235691 02/23/[address] [facility] IP CONSULT WITH INSIGHT 74879 02/21/2018 [facility] VITAMIN B12 37377 02/21/2018 [facility] FOLIC ACID 13872 02/21/2018 [facility] BASIC METABOLIC PANEL 28089 02/21/[address] [facility] CT HEAD W/O CONTRAST 64122 02/20/2018 [facility] 12 LEAD EKG 66883 02/20/2018 [facility] VBG POC 35283 02/20/2018 Unknown [facility] BMP POC 68761 02/20/2018 Unknown [facility] TROPONIN I POC 53890 02/20/2018 Unknown [facility] ALCOHOL 84378 02/20/2018 [facility] SALICYLATE 12380 02/20/2018 [facility] ACETAMINOPHEN 07012 02/20/2018 [facility] CBC/DIFF 58068 02/20/2018 [facility] HEPATITIS PANEL 61026 02/20/2018 [facility] LIVER PROFILE 70675 02/20/2018 [facility] HIV-1/HIV-2 ROUTINE SCREENING 17512 02/20/2018 [facility] ALCOHOL, MEDICAL USE ONLY 40329 02/20/2018 [facility] UA CHEMISTRIES 06170 02/19/2018 [facility] URINE DRUG SCREEN [id number] 02/19/2018 [facility] URINALYSIS [id number] 02/19/2018 [facility] Assessment and Plan No Data Provided for This Section Plan of Care Plan of Care Date Source IMM Influenza Seasonal May to September (>/=19 yrs) 05/01/2019 [facility] Colorectal Cancer Scrn Annual (FIT/FOBT) Age 50 to 75 03/09/2019 [facility] Upcoming EncountersDateTypeSpecialtyCare TeamDescription 05/31/2018 [facility] [phone] (Fax) [facility] MaintenanceDu DateLast DoneComments IMM Influenza Seasonal Oct to September (>/=19 yrs) 05/01/2018 Colorectal Cancer Scrn Annual (FIT/FOBT) Age 50 to 75 03/09/2019 03/09/2018 05/29/2018 [facility] Upcoming EncountersDateTypeSpecialtyCare TeamDescription 05/31/2018 [facility] [phone] (Fax) [facility] DateLast DoneComments IMM Influenza Seasonal Oct to September (>/=19 yrs) 05/01/2018 Colorectal Cancer Scrn Annual (FIT/FOBT) Age 50 to 75 03/09/2019 03/09/2018 05/12/2018 [facility] IMM Influenza Seasonal May to September (>/=19 yrs) 05/01/2018 [facility] Upcoming EncountersDateTypeSpecialtyCare TeamDescription 05/31/2018 [facility] [phone] (Fax) [facility] MaintenanceDu DateLast DoneComments IMM Influenza Seasonal Oct to September (>/=19 yrs) 05/01/2018 Colorectal Cancer Scrn Annual (FIT/FOBT) Age 50 to 75 03/09/2019 03/09/2018 04/13/2018 [facility] Upcoming EncountersDateTypeSpecialtyCare TeamDescription 03/08/2018 Office Visit Family Practice Paola Stone MD[address] [phone] (Fax) Health MaintenanceDue DateLast DoneComments Colorectal Cancer Scrn Annual (FIT/FOBT) Age 50 to 75 2010 IMM Influenza Seasonal May to September (>/=19 yrs) 05/01/2018 03/08/2018 [facility] Upcoming EncountersDateTypeSpecialtyCare TeamDescription 03/08/[address] [facility] Paola Stone MD[address] [phone] (Fax) [facility] DateLast DoneComments Colorectal Cancer Scrn Annual (FIT/FOBT) Age 50 to 75 2010 IMM Influenza Seasonal May to September (>/=19 yrs) 05/01/2018 03/06/2018 [facility] Upcoming EncountersDateTypeSpecialtyCare TeamDescription 03/08/[address] [facility] Paola Stone MD[address] [phone] (Fax) [facility] Date[facility] DoneComments Colorectal Cancer Scrn Annual (FIT/FOBT) Age 50 to 75 2010 IMM Influenza Seasonal May to September (>/=19 yrs) 05/01/2018 03/01/2018 [facility] Upcoming EncountersDateTypeSpecialtyCare TeamDescription 03/08/[address] [facility] Paola Stone MD[address] [phone] (Fax) [facility] DateLast DoneComments Colorectal Cancer Scrn Annual (FIT/FOBT) Age 50 to 75 2010 IMM Influenza Seasonal May to September (>/=19 yrs) 05/01/2018 02/21/2018 [facility] Colorectal Cancer Scrn Annual (FIT/FOBT) Age 50 to 75 2010 [facility] Social History Social History Date Source Tobacco [...] End No recent travel history available. 01/03/2019 [facility] No data available for this section 11/20/2014 [facility] Family History Value Date Source Medical HistoryRelationNameComments Arthritis Father Cancer Father Heart Father Hypertension Father Diabetes Maternal Aunt Asthma Mother Diabetes Mother Hypertension Mother RelationNameStatusComments Father Maternal Aunt Mother (Age 64) 01/07/2019 [facility] Medical HistoryRelationNameComments Arthritis Father Cancer Father Heart Father Hypertension Father Diabetes Maternal Aunt Asthma Mother Diabetes Mother Hypertension Mother RelationNameStatusComments Father Maternal Aunt Mother (Age 64) 07/13/2018 [facility] Medical HistoryRelationNameComments Arthritis Father Cancer Father Heart Father Hypertension Father Diabetes Maternal Aunt Asthma Mother Diabetes Mother Hypertension Mother RelationNameStatusComments Father Maternal Aunt Mother (Age 64) 05/29/2018 [facility] Medical HistoryRelationNameComments Arthritis Father Cancer Father Heart Father Hypertension Father Diabetes Maternal Aunt Asthma Mother Diabetes Mother Hypertension Mother RelationNameStatusComments Father Maternal Aunt Mother (Age 64) 05/12/2018 [facility] Medical HistoryRelationNameComments Arthritis Father Cancer Father Heart Father Hypertension Father Diabetes Maternal Aunt Asthma Mother Diabetes Mother Hypertension Mother RelationNameStatusComments Father Maternal Aunt Mother (Age 64) 04/13/2018 [facility] Medical HistoryRelationNameComments Arthritis Father Cancer Father Heart Father Hypertension Father Diabetes Maternal Aunt Asthma Mother Diabetes Mother Hypertension Mother RelationNameStatusComments Father Maternal Aunt Mother (Age 64) 03/08/2018 [facility] Medical HistoryRelationNameComments Arthritis Father Cancer Father Heart Father Hypertension Father Diabetes Maternal Aunt Asthma Mother Diabetes Mother Hypertension Mother RelationNameStatusComments Father Maternal Aunt Mother (Age 64) 03/06/2018 [facility] Medical HistoryRelationNameComments Arthritis Father Cancer Father Heart Father Hypertension Father Diabetes Maternal Aunt Asthma Mother Diabetes Mother Hypertension Mother RelationNameStatusComments Father Maternal Aunt Mother (Age 64) 03/01/2018 [facility] Medical HistoryRelationNameComments Arthritis Father Cancer Father Heart Father Hypertension Father Diabetes Maternal Aunt Asthma Mother Diabetes Mother Hypertension Mother RelationNameStatusComments Father Maternal Aunt Mother (Age 64) 02/21/2018 [facility] Advance Directives Order Name Results Value Date Source Advance Directives Advance Directives Latest Code Status on FileCode StatusDate ActivatedDate InactivatedComments Full Code 02/20/2018 12:16 PM 02/21/2018 9:03 PM 01/07/2019 [facility] Advance Directives Advance Directives For more information, please contact:[address] [id number] Code Status on FileCode StatusDate ActivatedDate InactivatedComments Full Code 02/20/2018 12:16 PM 02/21/2018 9:03 PM 07/13/2018 [facility] Functional Status No Data Provided for This Section
[2019-03-30] MEDS: SODIUM CHLORIDE 0.9% 1000ML 1,000 ML IV SCH ×3 (03:57→19:37)
--- NOTE | 2019-03-30 04:00 | NUR ---
AWARE OF HR 130'S. RECEIVED ORDERS FOR 2 MORE LITERS NS BOLUS
[2019-03-30 04:03] LABS: BILIRUBIN,URINE LARGE (NEGATIVE); CLARITY,URINE CLOUDY (CLEAR); KETONES,URINE 1+ (NEGATIVE); LEUKOCYTE ESTERASE ,URINE NEGATIVE (NEGATIVE); NITRITE,URINE POSITIVE (NEGATIVE); PROTEIN,URINE DIPSTICK 2+ (NEGATIVE); URINE UROBILINOGEN 1 mg/dL (0.2 - 1)
[2019-03-30 04:06] LABS: COLOR,URINE AMBER (YELLOW)
[2019-03-30] MEDS ORDERED: FUROSEMIDE INJ 10 MG/ML 4 ML VIAL IV ONE (04:15)
[2019-03-30 04:47] LABS: BACTERIA,URINE MANY /HPF; EPITHELIAL CELLS,URINE FEW /LPF; MUCUS,URINE MANY (RARE)
--- NOTE | 2019-03-30 06:29 | NUR ---
PT IS TRANSFERRED FROM ER .AOX3 .PT C/O ABD PAIN RESPIRATIONS ARE EVEN AND UNLABORED .TELE 12 SHOWS SINUS TACHY. RT AC 20G NSAT 125CC/HR B/P 121/85 T97.4HR 109 02 92%R 17 .CALL LIGHT WITH IN REACH .
--- NOTE | 2019-03-30 07:05 | History and Physical ---
REASON FOR ADMISSION: Pancreatitis. HISTORY OF PRESENT ILLNESS: The patient is a 58-year-old gentleman with a history of ulcerative colitis evidence of pancreatitis. The CT scan being unremarkable as well as evidence of dehydration and acute renal failure. Currently, the patient states he feels much better in regard to his abdominal pain, nausea, and vomiting with the medications. PAST MEDICAL HISTORY: Significant for pancreatitis in the past, fatty liver, ulcerative colitis, and alcohol abuse. MEDICATIONS: See MAR. ALLERGIES: IODINE. SOCIAL HISTORY: He drinks alcohol, but he states that he only drinks about 6 beers on the weekend, nonsmoker. FAMILY HISTORY: Noncontributory. PHYSICAL EXAMINATION: VITAL SIGNS: Temperature is 98.6, pulse 111, blood pressure 136/74, and sats 98% on room air. GENERAL: No apparent distress, lying in bed. NECK: Supple. CARDIOVASCULAR: Regular rate and rhythm. LUNGS: Clear to auscultation bilaterally. ABDOMEN: Soft. He is slightly tender in the mid epigastric area, but no peritoneal signs with good bowel sounds. EXTREMITIES: No clubbing or cyanosis. NEUROLOGIC: Nonfocal. Moves all extremities x4. ASSESSMENT AND PLAN: 1. Pancreatitis. We will continue with IV fluids and IV pain medication. 2. Nausea and vomiting. Continue with Zofran p.r.n. 3. Acute renal failure. Continue with IV fluids and recheck labs. 4. Polycythemia vera, most likely secondary due to contraction from dehydration, so we will recheck after IV fluids. 5. Thrombocytopenia, most likely secondary to his alcohol use. We will continue to monitor. 6. Elevated liver function tests, most likely secondary to fatty liver and alcohol. We will continue to monitor, while he is here in the hospital and we will consult Dr. Guerrero Berman. Please see hospital chart for full details. MD LUIS Martinez/MERRITT /[id number]
--- NOTE | 2019-03-30 07:10 | NUR ---
BEDSIDE REPORT GIVEN TO THE ONCOMING NURSE
[2019-03-30] MEDS: ONDANSETRON HCL INJ 2MG/ML 2ML 2 MG/ML VIAL IV PRN ×3 (07:43→20:37)
[2019-03-30] MEDS: MORPHINE SULFATE 2 MG/ML SYR 1ML IV PRN ×2 (07:43→16:27)
--- NOTE | 2019-03-30 19:00 | NUR ---
Received report from previous nurse. call light within reach. patient in bed.
[2019-03-30] MEDS: MORPHINE SULFATE INJ 4 MG/ML INJ 1ML IV PRN (20:37)
[2019-03-31] VITALS (8 sets, daily range): BP systolic 108–147; BP diastolic 72–91
[2019-03-31] MEDS: ONDANSETRON HCL INJ 2MG/ML 2ML 2 MG/ML VIAL IV PRN ×6 (00:41→21:52)
[2019-03-31] MEDS: MORPHINE SULFATE INJ 4 MG/ML INJ 1ML IV PRN ×6 (00:41→21:51)
[2019-03-31] MEDS: SODIUM CHLORIDE 0.9% 1000ML 1,000 ML IV SCH ×3 (04:25→19:33)
[2019-03-31] MEDS ORDERED: PANTOPRAZOLE 40 MG 10ML VIAL IV STA (06:59)
--- NOTE | 2019-03-31 07:22 | NUR ---
GAVE REPORT TO ONCOMING NURSE. CALL LIGHT WITHIN REACH. PATIENT IN BED.
[2019-03-31 07:44] LABS: BASOPHILS % 0.8 % (0.0-1.0); EOSINOPHILS # (AUTO) 0.1 (0.0-0.4); EOSINOPHILS % 2.6 % (0.0-6.0); HEMATOCRIT 40.8 % (38.2-49.6); HEMOGLOBIN 13.8 g/dL (14.0-18.0); LYMPHOCYTES # (AUTO) 1.4 (1.0-3.2); LYMPHOCYTES % 26.2 % (18.0-39.1); MEAN CORPUSCULAR HEMOGLOBIN 34.9 pg (28-32); MEAN CORPUSCULAR HGB CONC 33.8 g/dL (31-35); MEAN CORPUSCULAR VOLUME 103.3 fL (81-99); MONOCYTES # (AUTO) 0.8 (0.2-0.8); MONOCYTES % 15.4 % (4.4-11.3); NEUTROPHILS # (AUTO) 2.9 (2.1-6.9); NEUTROPHILS % 54.4 % (38.7-80.0); PLATELET COUNT 53 x10e3/uL (140-360); RED BLOOD COUNT 3.95 x10e6/uL (4.3-5.7); RED CELL DISTRIBUTION WIDTH 16.9 % (11.7-14.4)
[2019-03-31 07:47] LABS: ALANINE AMINOTRANSFERASE 45 IU/L (0-55); ALBUMIN 3.6 g/dL (3.5-5.0); ALBUMIN/GLOBULIN RATIO 1.4 (0.8-2.0); ALKALINE PHOSPHATASE 73 IU/L (40-150); AMYLASE 62 U/L (25-125); ANION GAP 18.8 mmol/L (8-16); BLOOD UREA NITROGEN 15 mg/dL (7-26); CALCIUM 8.3 mg/dL (8.4-10.2); CARBON DIOXIDE 26 mmol/L (22-29); CHLORIDE 101 mmol/L (98-107); GLUCOSE 77 mg/dL (74-118); LIPASE 131 U/L (8-78); MAGNESIUM 1.3 MG/DL (1.3-2.1); SODIUM 143 mmol/L (136-145)
[2019-03-31 07:51] LABS: POTASSIUM 2.8 mmol/L (3.5-5.1)
[2019-03-31 08:01] LABS: BUN/CREATININE RATIO 13 (6-25); CREATININE, SERUM 1.18 mg/dL (0.72-1.25); EST GLOMERULAR FILTRATION RATE > 60 ML/MIN (60-)
[2019-03-31] MEDS ORDERED: POTASSIUM CHLORIDE 20MEQ/100ML 200 ML IV ONE (09:00)
--- NOTE | 2019-03-31 10:38 | NUR ---
PROVEDED PACKET OF INFORMATION FOR COMMUNITY RESOURCES TO FOLLOW UP ON IN THE COMMUNITY FOR SELF PAY OR LOW INCOME RESOURCES
[2019-03-31] MEDS: METOCLOPRAMIDE HCL 10 MG/2ML VIAL IV SCH ×2 (11:49→17:50)
--- NOTE | 2019-03-31 16:13 | NUR ---
Nutrition Screen Note RD Recommendation for Physician: advance diet as tolerated to a Cardiac diet Plan of Care: RD following, monitoring for tolerance and adequacy Nutrition reason for involvement: chronic pancreatitis Primary Diagnose(s): pancreatitis, fatty liver PMH: ulcerative colitis Ht:69 in Wt:154lb BMI:22.7 kg/m2 IBW:160lb +/-10% RD Assessment: (03/31/2019) Chart reviewed. Labs and meds reviewed. Initial encounter with patient. Pt with a poor Po intake for about 2 weeks [employer]. Pt states that he has lost some weight based on a UBW of 165 pound, however, the Pt does not weigh himself on a regular basis. Poor appetite. Pt avoids fried foods, but does drink occasionally. Advised pt to avoid ETOH. Pt denies nausea, vomiting or diarrhea at this time. Pt denies having any difficulty chewing or swallowing. Current Diet: Clear liquid Malnutrition Evaluation (03/31/2019) The patient does not meet criteria for a specified degree of malnutrition at this time. Will re-evaluate at follow-up as appropriate. Diet Education Needs Assessment: Diet education not indicated. Nutrition Care Level: Moderate Signed: Jacob Valentin RD, LD, [facility]
--- NOTE | 2019-03-31 19:17 | NUR ---
Received report from previous nurse. call light within reach. patient in bed.
[2019-03-31] MEDS: PANTOPRAZOLE 40 MG 10ML VIAL IV SCH (20:29)
[2019-04-01] MEDS: METOCLOPRAMIDE HCL 10 MG/2ML VIAL IV SCH ×4 (00:22→17:38)
[2019-04-01 00:39] VITALS: BP 127/82
[2019-04-01] MEDS: ONDANSETRON HCL INJ 2MG/ML 2ML 2 MG/ML VIAL IV PRN (02:10)
[2019-04-01] MEDS: MORPHINE SULFATE INJ 4 MG/ML INJ 1ML IV PRN ×2 (02:10→06:50)
[2019-04-01] MEDS: SODIUM CHLORIDE 0.9% 1000ML 1,000 ML IV SCH ×3 (03:33→19:33)
[2019-04-01 04:20] VITALS: BP 165/90
[2019-04-01] MEDS ORDERED: CEFTRIAXONE SOD 1 GM/NS 50 ML 50 ML IV SCH ×2 (05:30→09:00)
[2019-04-01 06:28] LABS: AMYLASE 63 U/L (25-125); LIPASE 129 U/L (8-78)
[2019-04-01 07:02] LABS: BASOPHILS # (AUTO) 0.1 (0.0-0.1); BASOPHILS % 1.1 % (0.0-1.0); EOSINOPHILS # (AUTO) 0.2 (0.0-0.4); EOSINOPHILS % 3.7 % (0.0-6.0); HEMATOCRIT 43.6 % (38.2-49.6); HEMOGLOBIN 15.4 g/dL (14.0-18.0); LYMPHOCYTES # (AUTO) 1.1 (1.0-3.2); LYMPHOCYTES % 23.1 % (18.0-39.1); MEAN CORPUSCULAR HEMOGLOBIN 35.5 pg (28-32); MEAN CORPUSCULAR HGB CONC 35.3 g/dL (31-35); MEAN CORPUSCULAR VOLUME 100.5 fL (81-99); MONOCYTES # (AUTO) 0.8 (0.2-0.8); MONOCYTES % 17.3 % (4.4-11.3); NEUTROPHILS # (AUTO) 2.5 (2.1-6.9); NEUTROPHILS % 54.4 % (38.7-80.0); PLATELET COUNT 60 x10e3/uL (140-360); RED BLOOD COUNT 4.34 x10e6/uL (4.3-5.7); RED CELL DISTRIBUTION WIDTH 15.9 % (11.7-14.4)
--- NOTE | 2019-04-01 07:40 | NUR ---
GAVE REPORT TO ONCOMING NURSE. CALL LIGHT WITHIN REACH. PATIENT IN BED.
[2019-04-01 07:44] LABS: ALANINE AMINOTRANSFERASE 45 IU/L (0-55); ALBUMIN 3.8 g/dL (3.5-5.0); ALBUMIN/GLOBULIN RATIO 1.4 (0.8-2.0); ALKALINE PHOSPHATASE 82 IU/L (40-150); ANION GAP 19.8 mmol/L (8-16); BLOOD UREA NITROGEN 6 mg/dL (7-26); BUN/CREATININE RATIO 7 (6-25); CALCIUM 8.7 mg/dL (8.4-10.2); CARBON DIOXIDE 27 mmol/L (22-29); CHLORIDE 94 mmol/L (98-107); EST GLOMERULAR FILTRATION RATE > 60 ML/MIN (60-); GLUCOSE 88 mg/dL (74-118); MAGNESIUM 1.2 MG/DL (1.3-2.1); SODIUM 138 mmol/L (136-145)
[2019-04-01 07:47] LABS: POTASSIUM 2.8 mmol/L (3.5-5.1)
--- NOTE | 2019-04-01 08:27 | NUR ---
Spoke with Dr. Davenport. Received a one time order of 4mg Morphine and 4 mg Zofran.
[2019-04-01] MEDS ORDERED: POTASSIUM CHLORIDE 20MEQ/100ML 200 ML IV ONE (08:30)
[2019-04-01] MEDS ORDERED: MAGNESIUM SULFATE 2GM/50ML 50 ML IV ONE ×2 (08:30→13:00)
[2019-04-01 08:39] VITALS: BP 152/99
[2019-04-01 08:53] VITALS: BP 152/99
[2019-04-01] MEDS ORDERED: MORPHINE SULFATE 2 MG/ML SYR 1ML IV ONE (09:00)
[2019-04-01] MEDS ORDERED: ONDANSETRON HCL INJ 2MG/ML 2ML 2 MG/ML VIAL IV ONE (09:00)
[2019-04-01] MEDS: PANTOPRAZOLE 40 MG 10ML VIAL IV SCH (09:48)
[2019-04-01 12:18] VITALS: BP 152/92
[2019-04-01 15:54] VITALS: BP 143/99
[2019-04-01 17:27] LABS: ALANINE AMINOTRANSFERASE 52 IU/L (0-55); ALBUMIN/GLOBULIN RATIO 1.4 (0.8-2.0); ALKALINE PHOSPHATASE 94 IU/L (40-150); ANION GAP 17.7 mmol/L (8-16); BLOOD UREA NITROGEN 6 mg/dL (7-26); BUN/CREATININE RATIO 6 (6-25); CARBON DIOXIDE 29 mmol/L (22-29); CHLORIDE 93 mmol/L (98-107); CREATININE, SERUM 0.93 mg/dL (0.72-1.25); EST GLOMERULAR FILTRATION RATE > 60 ML/MIN (60-); GLUCOSE 127 mg/dL (74-118); POTASSIUM 3.7 mmol/L (3.5-5.1); SODIUM 136 mmol/L (136-145)
--- NOTE | 2019-04-01 19:00 | NUR ---
Received report from previous nurse. Patient is anxious and ready to leave. Patient is A&Ox3.
--- NOTE | 2019-04-01 20:00 | NUR ---
Patient's IV and cath was taken out. Patient collected all his belongings and refused to be wheelchaired out. Walked the patient outside and made sure he got to his car. Patient was in no pain or distress.
--- NOTE | 2019-04-02 06:36 | Discharge Summary ---
DISCHARGE DIAGNOSES: 1. Pancreatitis. 2. Hypercalcemia. 3. Dehydration. 4. Alcohol abuse. 5. Elevated liver function tests. 6. Abdominal pain . HISTORY OF PRESENT ILLNESS AND HOSPITAL COURSE: See hospital chart for full details. The patient is a gentleman with history of alcohol abuse, who presented with abdominal pain, was noticed to have pancreatitis, severe dehydration with hypercalcemia, polycythemia, as well as elevated liver function tests. He was brought in and initially made n.p.o., started on IV fluids as well as IV pain medication and each day, the patient had significant improvement of his laboratory findings where his calcium returned back to normal. His polycythemia normalized and his liver function tests improved significantly as his amylase and lipase returned to normal. At the time of discharge, the patient was having no further pain. He tolerated his p.o. intake well and he was very adamant. He was going to be discharged when was . He is to follow up with his PCP in 1 to 2 weeks. Please see hospital chart for full details. MD LUIS Martinez/MERRITT /[id number]
== END 2019-04-01 19:55 | disposition home or self-care (01) | DRG 439 ==
LOC: ER 02:14 → ERHOLD 03:35 → MED/SURG2 06:22
PROVIDERS: ADMIT Internal Medicine; ATTEND Internal Medicine
DX: K85.90 Acute pancreatitis without necrosis or infection, unspecified (principal); N17.9 Acute kidney failure, unspecified; E83.52 Hypercalcemia; E86.0 Dehydration; F10.10 Alcohol abuse, uncomplicated; R94.5 Abnormal results of liver function studies; D45 Polycythemia vera; D69.6 Thrombocytopenia, unspecified; K76.0 Fatty (change of) liver, not elsewhere classified; G62.9 Polyneuropathy, unspecified
CPT/HCPCS: 36415; 74176; 80053; 81001; 82150; 82550; 82553; 83690; 83735; 84484; 85025; 93005; 96374; 96375; 99284; J0696; J1940; J2060; J2270; J2405; J2765; J3475; J3480; J7030

== ENCOUNTER 2019-09-10 18:25 | Observation (INO) | payer SELFPAY ==
[~2019-09-10] VITALS: Ht 177.8 cm; Wt 72.6 kg
--- OUTSIDE RECORDS SUMMARY | 2019-09-10 18:29 | XMS REPORT ---
Author Author [facility] Address Unknown Phone Unavailable Care Team Providers Care Ship Manager Name Role Phone GENESIS NUÑEZ Unavailable Unavailable SHY ORO Unavailable Unavailable Payers Payer Name Policy Type Policy Number Effective Date Expiration Date Problems This patient has no known problems. Allergies, Adverse Reactions, Alerts Allergy Name Allergy Type Status Severity Reaction(s) Onset Date Inactive Date Treating Clinician Comments iodine DA Active SV 2017-09-09 00:00:00 Medications This patient has no known medications. Encounters Start Date/Time End Date/Time Encounter Type Admission Type Attending Clinicians Care Facility Care Department Encounter ID 2019-01-08 03:45:02 2019-01-08 03:45:02 Emergency [facility] [id number] 2019-01-07 20:28:48 2019-01-07 20:28:48 Emergency [facility] [id number] 2019-01-07 20:08:12 2019-01-07 20:08:12 Emergency [facility] [id number] 2019-01-07 19:46:18 2019-01-07 19:46:18 Emergency [facility] [id number] 2019-01-07 18:53:15 2019-01-07 18:53:15 Emergency [facility] [id number] 2018-05-31 00:00:00 2018-05-31 00:00:00 Outpatient [facility] [id number] 2018-04-06 00:00:00 2018-04-06 00:00:00 Outpatient [facility] [id number] 2018-04-06 00:00:00 2018-04-06 00:00:00 Outpatient [facility] [id number] 2018-03-29 00:00:00 2018-03-29 00:00:00 Outpatient [facility] [id number] 2018-03-24 00:00:00 2018-03-24 00:00:00 Outpatient [facility] [id number] 2018-03-10 00:00:00 2018-03-10 00:00:00 Outpatient [facility] [id number] 2018-03-10 00:00:00 2018-03-10 00:00:00 Outpatient [facility] [id number] 2018-03-09 09:25:05 2018-03-09 09:25:05 Outpatient [facility] [id number] 2018-03-08 16:03:00 2018-03-08 16:03:00 Outpatient [facility] [id number] 2018-03-08 13:24:39 2018-03-08 13:24:39 Outpatient [facility] [id number] 2018-03-08 00:00:00 2018-03-08 00:00:00 Outpatient [facility] [id number] 2018-02-22 16:32:14 2018-02-22 16:32:14 Emergency [facility] [id number] 2018-02-19 23:32:34 2018-02-19 23:32:34 Emergency [facility] [id number] 2018-02-19 21:17:03 2018-02-19 21:17:03 Inpatient [facility] [id number] Results Test Description Test Time Test Comments Text Results Atomic Results Result Comments BASIC METABOLIC PANEL 2019-08-23 11:19:00 SODIUM (test code=NA) 134 mmol/L 136-145 POTASSIUM (test code=K) 2.9 mmol/L 3.5-5.1 Results called to [id number] by DARRICK 08/23/19 1059Critical results verified and read back by Nurse? Y CHLORIDE (test code=CL) 91.0 mmol/L 98-107 CARBON DIOXIDE (test code=CO2) 34.0 mmol/L 21-32 Previously reported result: 34.0 mmol/LEdited by: DARRICK on 08/23/19:1119 ANION GAP (test code=GAP) 11.9 10-20 GLUCOSE (test code=GLU) 84 mg/dL 74-106 BLOOD UREA NITROGEN (test code=BUN) 16 mg/dL 7-18 RESULT VERIFIED BY REPEAT ANALYSIS GLOMERULAR FILTRATION RATE (test code=GFR) > 60 mL/min >=60 Estimated GFR by using Modified MDRD formula.Chronic kidney disease is defined as either kidney damageor GFR <60 mL/min/1.73 m2 for >3 months. CREATININE (test code=CREAT) 1.00 mg/dL 0.7-1.3 BUN/CREATININE RATIO (test code=BUN/CREA) 16.0 10-20 CALCIUM (test code=CA) 7.5 mg/dL 8.5-10.1 BASIC METABOLIC [id number] 11:03:00* Test Item Value Reference Range Comments SODIUM (test code=NA) 134 mmol/L 136-145 POTASSIUM (test code=K) 2.9 mmol/L 3.5-5.1 Results called to [id number] by [email or web address] 08/23/19 1059Critical results verified and read back by Nurse? Y CHLORIDE (test code=CL) 91.0 mmol/L 98-107 CARBON DIOXIDE (test code=CO2) 34.0 mmol/L 21-32 ANION GAP (test code=GAP) 10-20 GLUCOSE (test code=GLU) 84 mg/dL 74-106 BLOOD UREA NITROGEN (test code=BUN) 16 mg/dL 7-18 RESULT VERIFIED BY REPEAT ANALYSIS GLOMERULAR FILTRATION RATE (test code=GFR) > 60 mL/min >=60 Estimated GFR by using Modified MDRD formula.Chronic kidney disease is defined as either kidney damageor GFR <60 mL/min/1.73 m2 for >3 months. CREATININE (test code=CREAT) 1.00 mg/dL 0.7-1.3 BUN/CREATININE RATIO (test code=BUN/CREA) 16.0 10-20 CALCIUM (test code=CA) 7.5 mg/dL 8.5-10.1 [id number] 11:02:00* Test Item Value Reference Range Comments POTASSIUM (test code=K) TEST NOT PERFORMED mmol/L 3.5-5.1 Results called to [id number] by [email or web address] 08/23/19 1052Critical results verified and read back by Nurse? YPreviously reported result: 2.8 mmol/LEdited by: LAVONNE on 08/23/19:853744 1102: K previously reported as: 2.8 *L mmol/L Results called to [id number] by [email or web address].[email or web address] 08/23/19 1052 Critical results verified and read back by Nurse? Y BASIC METABOLIC [id number] 10:59:00* Test Item Value Reference Range Comments SODIUM (test code=NA) 134 mmol/L 136-145 POTASSIUM (test code=K) 2.9 mmol/L 3.5-5.1 Results called to [id number] by V.LAB.CB 08/23/19 1059Critical results verified and read back by Nurse? Y CHLORIDE (test code=CL) 91.0 mmol/L 98-107 CARBON DIOXIDE (test code=CO2) mmol/L 21-32 ANION GAP (test code=GAP) 10-20 GLUCOSE (test code=GLU) mg/dL 74-106 BLOOD UREA NITROGEN (test code=BUN) mg/dL 7-18 GLOMERULAR FILTRATION RATE (test code=GFR) mL/min >=60 CREATININE (test code=CREAT) mg/dL 0.7-1.3 BUN/CREATININE RATIO (test code=BUN/CREA) 10-20 CALCIUM (test code=CA) mg/dL 8.5-10.1 [id number] 10:52:00* Test Item Value Reference Range Comments POTASSIUM (test code=K) 2.8 mmol/L 3.5-5.1 Results called to [id number] by KOALA.CH.[email or web address] 08/23/19 1052Critical results verified and read back by Nurse? Y CBC W/AUTO [id number] 13:46:00* Test Item Value Reference Range Comments WHITE BLOOD CELL (test code=WBC) 8.3 K/mm3 4.5-12.5 RED BLOOD CELL (test code=RBC) 2.90 mill/mm3 4.0-5.8 HEMOGLOBIN (test code=HGB) 11.8 gram/dL 13.0-17.5 RESULT VERIFIED BY REPEAT ANALYSIS HEMATOCRIT (test code=HCT) 32.0 % 42.0-52.0 MEAN CELL VOLUME (test code=MCV) 110.3 fL 80-98 MEAN CELL HGB (test code=MCH) 40.7 picogram 27.0-33.0 MEAN CELL HGB CONCETRATION (test code=MCHC) 36.9 gram/dL 33.0-36.0 RED CELL DISTRIBUTION WIDTH (test code=RDW) 13.8 % 11.6-16.2 RED CELL DISTRIBUTION WIDTH SD (test code=RDW-SD) 55.8 fL 37.0-51.0 PLATELET COUNT (test code=PLT) 112 K/mm3 150-450 RESULT VERIFIED BY REPEAT ANALYSIS MEAN PLATELET VOLUME (test code=MPV) 11.5 fL 6.7-11.0 NEUTROPHIL % (test code=NT%) 72.8 % 39.0-69.0 IMMATURE GRANULOCYTE % (test code=IG%) 0.4 % 0.0-5.0 LYMPHOCYTE % (test code=LY%) 18.2 % 25.0-55.0 MONOCYTE % (test code=MO%) 6.4 % 0.0-10.0 EOSINOPHIL % (test code=EO%) 1.8 % 0.0-5.0 BASOPHIL % (test code=BA%) 0.4 % 0.0-1.0 NUCLEATED RBC % (test code=NRBC%) 0.0 % 0-0 NEUTROPHIL # (test code=NT#) 6.07 K/mm3 1.8-7.7 IMMATURE GRANULOCYTE # (test code=IG#) 0.03 x10 3/uL 0-0.03 LYMPHOCYTE # (test code=LY#) 1.52 K/mm3 1.0-5.0 MONOCYTE # (test code=MO#) 0.53 K/mm3 0-0.8 EOSINOPHIL # (test code=EO#) 0.15 K/mm3 0.0-0.5 BASOPHIL # (test code=BA#) 0.03 K/mm3 0.0-0.2 NUCLEATED RBC # (test code=NRBC#) 0.00 K/mm3 0.0-0.1 COMPREHENSIVE METABOLIC [id number] 12:56:00* Test Item Value Reference Range Comments SODIUM (test code=NA) 134 mmol/L 136-145 RESULT VERIFIED BY REPEAT ANALYSIS POTASSIUM (test code=K) 2.2 mmol/L 3.5-5.1 Results called to [id number] V.LAB.[facility] 08/22/19 1255Critical results verified and read back by Nurse? Y CHLORIDE (test code=CL) 88.0 mmol/L 98-107 CARBON DIOXIDE (test code=CO2) 39.0 mmol/L 21-32 ANION GAP (test code=GAP) 9.2 10-20 GLUCOSE (test code=GLU) 87 mg/dL 74-106 BLOOD UREA NITROGEN (test code=BUN) 29 mg/dL 7-18 GLOMERULAR FILTRATION RATE (test code=GFR) 48 mL/min >=60 Estimated GFR by using Modified MDRD formula.Chronic kidney disease is defined as either kidney damageor GFR <60 mL/min/1.73 m2 for >3 months. CREATININE (test code=CREAT) 1.50 mg/dL 0.7-1.3 BUN/CREATININE RATIO (test code=BUN/CREA) 19.3 10-20 TOTAL PROTEIN (test code=PROT) 5.2 gram/dL 6.4-8.2 ALBUMIN (test code=ALB) 2.8 g/dL 3.4-5.0 GLOBULIN (test code=GLOB) 2.4 gram/dL 2.7-4.2 ALBUMIN/GLOBULIN RATIO (test code=A/G) 1.2 0.75-1.50 CALCIUM (test code=CA) 7.1 mg/dL 8.5-10.1 BILIRUBIN TOTAL (test code=BILT) 1.40 mg/dL 0.0-1.0 SGOT/AST (test code=AST) 86 IUnit/L 15-37 SGPT/ALT (test code=ALT) 23 IUnit/L 12-78 ALKALINE PHOSPHATASE TOTAL (test code=ALKP) 83 IUnit/L 45-117 Note change in reference range due to change in reagent. [id number] 12:56:00* Test Item Value Reference Range Comments MAGNESIUM (test code=MAG) 1.4 mg/dL 1.8-2.4 BASIC METABOLIC [id number] 16:40:00* Test Item Value Reference Range Comments SODIUM (test code=NA) 139 mmol/L 136-145 POTASSIUM (test code=K) 2.3 mmol/L 3.5-5.1 Results called to [id number] by KarlLAB.SPR 08/21/19 1639Critical results verified and read back by Nurse? Y CHLORIDE (test code=CL) 91.0 mmol/L 98-107 CARBON DIOXIDE (test code=CO2) 33.0 mmol/L 21-32 ANION GAP (test code=GAP) 17.3 10-20 GLUCOSE (test code=GLU) 102 mg/dL 74-106 BLOOD UREA NITROGEN (test code=BUN) 27 mg/dL 7-18 GLOMERULAR FILTRATION RATE (test code=GFR) 33 mL/min >=60 Estimated GFR by using Modified MDRD formula.Chronic kidney disease is defined as either kidney damageor GFR <60 mL/min/1.73 m2 for >3 months. CREATININE (test code=CREAT) 2.10 mg/dL 0.7-1.3 BUN/CREATININE RATIO (test code=BUN/CREA) 12.9 10-20 CALCIUM (test code=CA) 7.6 mg/dL 8.5-10.1 LIPID PROFILE (CORONARY RISK)2019-08-21 16:40:00* Test Item Value Reference Range Comments TRIGLYCERIDES (test code=TRIG) 214 mg/dL 20-150 CHOLESTEROL (test code=CHOL) 135 mg/dL 0-200 CHOLESTEROL/HDL RATIO (test code=CHOLHDL) 7.0 RATIO 0-4.9 RISK ASSOCIATED WITH CHOL/HDL RATIOS: Risk Male Female1/2 AVERAGE 3.43 3.27AVERAGE 4.97 4.442X AVERAGE 9.55 7.053X AVERAGE 23.39 11.04 REFERENCE VALUE IS RELATED TO RISK LEVELS ASRECOMMENDED BY THE ABHINAV. HEART, LUNG, AND BLOOD INST. HDL CHOLESTEROL (test code=HDL) 18 mg/dL 40-60 LIPOPROTEIN LDL (test code=LDL) 83 mg/dL 100-129 Reference Interval: mg/dL mmol/L Optimal <100 <2.6Near/above optimal 100-129 2.6- 3.3Borderline High 130-159 3.4-4.1High 160-189 4.1-4.9Very High >=190 >=4.9=========This LDL result is a direct measurement.========= [id number] 16:40:00* Test Item Value Reference Range Comments MAGNESIUM (test code=MAG) 1.3 mg/dL 1.8-2.4 DRUGS OF ABUSE SCREEN [id number] 16:21:00* Test Item Value Reference Range Comments UA PH DIPSTICK (test code=MAXIMILIAN) 5.5 5.0-8.0 URN COCAINE (test code=COCAURN) NEGATIVE <300 ng/mL URN CANNABINOIDS (test code=CANNABURN) POSITIVE <50 ng/mL This test provides only a preliminary test result. A morespecific alternate chemical method must be used in order toobtain a confirmed analytical result. Gas chromatography/mass spectrometry (GC/MS) is thepreferred confirmatory method. Other chemical confirmationmethods are available. Clinical consideration and professional judgment should be applied to any drug of abusetest result, particularly when preliminary positive resultsare used.Unconfirmed screening results must not be used fornon-medical purposes (e.g., employment testing, legaltesting). URN AMPHETAMINE (test code=AMPHETURN) NEGATIVE <1000 ng/mL URN BARBITURATE (test code=BARBITURN) NEGATIVE <200 ng/mL URN BENZODIAZEPINE (test code=BENZOURN) NEGATIVE <200 ng/mL URN OPIATES (test code=OPIATURN) NEGATIVE <300 ng/mL URN PHENCYCLIDINE (PCP) (test code=PHENCURN) NEGATIVE <25 ng/mL URN METHADONE (test code=METHAURN) NEGATIVE <300 ng/mL DRUGS OF ABUSE SCREEN [id number] 16:08:00* Test Item Value Reference Range Comments UA PH DIPSTICK (test code=MAXIMILIAN) 5.0-8.0 URN COCAINE (test code=COCAURN) NEGATIVE <300 ng/mL URN CANNABINOIDS (test code=CANNABURN) POSITIVE <50 ng/mL This test provides only a preliminary test result. A morespecific alternate chemical method must be used in order toobtain a confirmed analytical result. Gas chromatography/mass spectrometry (GC/MS) is thepreferred confirmatory method. Other chemical confirmationmethods are available. Clinical consideration and professional judgment should be applied to any drug of abusetest result, particularly when preliminary positive resultsare used.Unconfirmed screening results must not be used fornon-medical purposes (e.g., employment testing, legaltesting). URN AMPHETAMINE (test code=AMPHETURN) NEGATIVE <1000 ng/mL URN BARBITURATE (test code=BARBITURN) NEGATIVE <200 ng/mL URN BENZODIAZEPINE (test code=BENZOURN) NEGATIVE <200 ng/mL URN OPIATES (test code=OPIATURN) NEGATIVE <300 ng/mL URN PHENCYCLIDINE (PCP) (test code=PHENCURN) NEGATIVE <25 ng/mL URN METHADONE (test code=METHAURN) NEGATIVE <300 ng/mL B-TYPE NATRIURETIC [id number] 16:05:00* Test Item Value Reference Range Comments B-TYPE NATRIURETIC PEPTIDE (test code=BNP) 263.59 pgram/mL 0-100 [id number] 15:57:00* Test Item Value Reference Range Comments GLYCOSYLATED HEMOGLOBIN (HA1C) (test code=GLYHGB) 5.4 % HbA1 SUGGESTED DIAGNOSIS: HbA1C (%) Diabetic >6.4Prediabetes 5.7 - 6.4Normal <5.7 ESTIMATED AVERAGE GLUCOSE (test code=EAG) 108 MG/DL URINALYSIS [id number] 13:13:00* Test Item Value Reference Range Comments UA COLOR (test code=COLU) YELLOW YELLOW UA APPEARANCE (test code=APPU) HAZY CLEAR UA GLUCOSE DIPSTICK (test code=DGLUU) NEGATIVE mg/dL NEGATIVE UA BILIRUBIN DIPSTICK (test code=BILU) 2+ (Mod 2.0-4.0) NEGATIVE UA KETONE DIPSTICK (test code=KETU) 1+ mg/dL NEGATIVE UA SPECIFIC GRAVITY (test code=SGU) 1.025 1.001-1.035 UA BLOOD DIPSTICK (test code=JERRY) TRACE NEGATIVE UA PH DIPSTICK (test code=MAXIMILIAN) 5.5 5.0-8.0 UA PROTEIN DIPSTICK (test code=PROU) 100 (2+) mg/dL Neg-15 UA UROBILINIOGEN DIPSTICK (test code=URO) 2.0 (1+) mg/dL 0.0-0.2 UA NITRITE DIPSTICK (test code=ULI) POSITIVE NEGATIVE UA LEUKOCYTE ESTERASE W REFLEX (test code=LEUUR) NEGATIVE NEGATIVE UA WBC (test code=WBCU) 0-5 per HPF 0-5 UA RBC (test code=RBCU) 0-2 #/HPF 0-5 UA EPITHELIAL CELLS (test code=EPIU) FEW per HPF FEW UA BACTERIA (test code=BACU) FEW #/HPF NONE UA HYALINE CAST (test code=HYALU) 3-5 #/LPF 0-5 UA MUCUS (test code=MUCU) FEW #/LPF FEW Urine Source? Clean CatchURINALYSIS [id number] 12:59:00* Test Item Value Reference Range Comments UA COLOR (test code=COLU) YELLOW YELLOW UA APPEARANCE (test code=APPU) HAZY CLEAR UA GLUCOSE DIPSTICK (test code=DGLUU) NEGATIVE mg/dL NEGATIVE UA BILIRUBIN DIPSTICK (test code=BILU) 2+ (Mod 2.0-4.0) NEGATIVE UA KETONE DIPSTICK (test code=KETU) 1+ mg/dL NEGATIVE UA SPECIFIC GRAVITY (test code=SGU) 1.025 1.001-1.035 UA BLOOD DIPSTICK (test code=JERRY) TRACE NEGATIVE UA PH DIPSTICK (test code=MAXIMILIAN) 5.5 5.0-8.0 UA PROTEIN DIPSTICK (test code=PROU) 100 (2+) mg/dL Neg-15 UA UROBILINIOGEN DIPSTICK (test code=URO) 2.0 (1+) mg/dL 0.0-0.2 UA NITRITE DIPSTICK (test code=ULI) POSITIVE NEGATIVE UA LEUKOCYTE ESTERASE W REFLEX (test code=LEUUR) NEGATIVE NEGATIVE UA WBC (test code=WBCU) per HPF 0-5 UA RBC (test code=RBCU) per HPF 0-5 UA EPITHELIAL CELLS (test code=EPIU) per HPF Few UA BACTERIA (test code=BACU) per HPF NONE Urine Source? Clean CatchVENOUS BLOOD [id number] 12:39:00* Test Item Value Reference Range Comments VENOUS BLOOD GAS PH (test code=PHV) 7.48 7.30-7.40 VENOUS BLOOD GAS PCO2 (test code=PCO2V) 34.5 mm Hg 39.0-51.0 VENOUS BLOOD GAS PO2 (test code=PO2V) < 45.9 mm Hg 30.0-50.0 VBG HCO3 (test code=HCO3V) 24.8 mmol/L 17.0-30.0 VBG BASE EXCESS (test code=SIRIA) 1.7 mmol/L -5.0-5.0 VENOUS BLOOD GAS O2 SAT. (test code=O2SATV) 48 % 94-98 VENOUS BLOOD GAS FIO2 (test code=FIO2V) 21.0 PT. HGB (test code=PHGBVBG) 14.0 gram/dL 13.0-17.5 VENOUS BLOOD GAS SITE (test code=SITEV) IVC HEMATOCRIT (test code=HCT/VBG) 41 % 42-52 HGB O2 SAT (test code=HBOSAT) 47.9 % 94.00-98.00 CARBOXYHEMOGLOBIN (test code=HOHGBT) 0.9 %totalHg 0.5-1.5 METHEMOGLOBIN (test code=METHGB) 0.1 % 0.0-1.50 OSMOLALITY [id number] 12:38:00* Test Item Value Reference Range Comments OSMOLALITY SERUM (test code=OSMO) 311 mOsm/kg 275-295 BASIC METABOLIC [id number] 12:35:00* Test Item Value Reference Range Comments SODIUM (test code=NA) 138 mmol/L 136-145 POTASSIUM (test code=K) 3.2 mmol/L 3.5-5.1 CHLORIDE (test code=CL) 87.0 mmol/L 98-107 CARBON DIOXIDE (test code=CO2) 18.0 mmol/L 21-32 ANION GAP (test code=GAP) 36.2 10-20 GLUCOSE (test code=GLU) 90 mg/dL 74-106 BLOOD UREA NITROGEN (test code=BUN) 27 mg/dL 7-18 GLOMERULAR FILTRATION RATE (test code=GFR) 23 mL/min >=60 Estimated GFR by using Modified MDRD formula.Chronic kidney disease is defined as either kidney damageor GFR <60 mL/min/1.73 m2 for >3 months. CREATININE (test code=CREAT) 2.80 mg/dL 0.7-1.3 BUN/CREATININE RATIO (test code=BUN/CREA) 9.6 10-20 CALCIUM (test code=CA) 9.1 mg/dL 8.5-10.1 HEPATIC FUNCTION [id number] 12:35:00* Test Item Value Reference Range Comments TOTAL PROTEIN (test code=PROT) 6.8 gram/dL 6.4-8.2 ALBUMIN (test code=ALB) 3.7 g/dL 3.4-5.0 GLOBULIN (test code=GLOB) 3.1 gram/dL 2.7-4.2 ALBUMIN/GLOBULIN RATIO (test code=A/G) 1.2 0.75-1.50 BILIRUBIN TOTAL (test code=BILT) 3.10 mg/dL 0.0-1.0 BILIRUBIN DIRECT (test code=BILD) 0.79 mg/dL 0.0-0.20 SGOT/AST (test code=AST) 47 IUnit/L 15-37 DILUTION 1:2 SGPT/ALT (test code=ALT) 17 IUnit/L 12-78 DILUTION 1:2 ALKALINE PHOSPHATASE TOTAL (test code=ALKP) 123 IUnit/L 45-117 Note change in reference range due to change in reagent. [id number] 12:35:00* Test Item Value Reference Range Comments LIPASE (test code=LIP) 261 U/L 73.0-393.0 [id number] 12:35:00* Test Item Value Reference Range Comments TROPONIN-I (test code=TROPI) 0.018 ng/mL 0-0.045 - CT ABD PELVIS W/O [id number] 12:24:00 Name: LINDY AQUINO [facility] : 1960 Age/S: 58 / M [address] [facility] Unit #: [id number] Loc: [place] [address] Phys: Sara Coleman DO Acct: [id number] Dis Date: Status: REG ER PHONE #: [phone] Exam Date: 08/21/2019 7744 FAX #: [phone] Reason: chest pain, r/o dissection EXAMS: CPT CODE: [id number] CT ABD PELVIS W/O CONT 40579 REASON FOR EXAM: chest pain, r/o dissection EXAM ORDER DATE: 08/21/2019 10:25 AM Ordering M.DMary: Sara Coleman DO PROCEDURE: - CT ABD PELVIS W/O CONT, - CT CHEST W/O CONTRAST noncontrast axial CT images were acquired through the chest/abdomen/pelvis. Sagittal and coronal reformatted images were generated. Automated exposure control was utilized for this reduction. Phases of contrast: venous and delayed COMPARISON: CT of the abdomen and pelvis September 09, 2017 FINDINGS: The absence of IV contrast limits sensitivity of this exam for the detection of soft tissue pathology Visualized neck: Grossly normal Airways, Lungs and Pleura: Grossly normal Heart, great vessels, pulmonary vessels, mediastinum: Mild aortic calcifications. Otherwise grossly normal Thoracic Lymph nodes: No axillary, internal mammary, or mediastinal adenopathy. Hilar lymph nodes are sub optimally evaluated due to the absence of IV contrast Hepato biliary system: Hepatic steatosis. Gallbladder is within normal limits Pancreas: Atrophic with mild fatty replacement Spleen: Grossly normal Adrenal glands: Grossly normal Genito urinary system: Grossly normal Gastrointestinal tract and appendix : Fatty metaplasia of the submucosa in the transverse and descending colon may represent sequela of a PAGE 1 Signed Report (CONTINUED) Name: LINDY AQUINO [facility] [place] [facility] [facility] : 1960 Age/S: 58 / M [address] [facility] Unit #: [id number] Loc: [place] [address] Phys: Sara Coleman DO Acct: [id number] Dis Date: Status: REG ER PHONE #: [phone] Exam Date: 08/21/2019 1731 FAX #: [phone] Reason: chest pain, r/o dissection EXAMS: CPT CODE: [id number] CT ABD PELVIS W/O CONT 13356 < Continued> previous infectious or inflammatory process. Small hiatal hernia is present. Small bowel is within normal limits. Appendix is not clearly visualized however no inflammatory changes are seen in the right lower abdomen in the expected region of the appendix. Abdominal vascular structures: Mild atherosclerotic disease in the abdominal aorta and iliac arteries Peritoneum and retroperitoneum: No free fluid or free air. No omental or mesenteric masses. No abnormal lymph nodes. Musculoskeletal structures, chest wall, and abdominal wall: Incompletely visualized hardware is present in the cervical spine. Mild degenerative changes are present in the lumbar spine degenerative changes are also present in the bilateral hips IMPRESSION: No acute abnormalities in the thorax, abdomen, or pelvis. Please note that aeration of vascular pathology, specifically dissection, is limited in the absence of IV contrast Location: [facility] at 1224 Reported and signed by: Frank Romero MD CC: Sara Coleman DO Technologist:Zarina Drew RT(R),CT; CTDI: DLP: Trnscb Date/Time: 08/21/2019 (1224) [email or web address] Orig Print D/T: S: 08/21/2019 (6510) PAGE 2 Signed Report - CT CHEST W/O CONTRAST 2019-08-21 12:24:00 Name: LINDY AQUINO [facility] : 1960 Age/S: 58 / M [address] [facility] Unit #: [id number] Loc: [place] [address] Phys: Sara Coleman DO Acct: [id number] Dis Date: Status: REG ER PHONE #: [phone] Exam Date: 08/21/2019 1137 FAX #: [phone] Reason: chest pain, r/o dissection EXAMS: CPT CODE: [id number] CT CHEST W/O CONTRAST [id number] REASON FOR EXAM: chest pain, r/o dissection EXAM ORDER DATE: 08/21/2019 10:25 AM Ordering MAleksandra: Sara Coleman DO PROCEDURE: - CT ABD PELVIS W/O CONT, - CT CHEST W/O CONTRAST noncontrast axial CT images were acquired through the chest/abdomen/pelvis. Sagittal and coronal reformatted images were generated. Automated exposure control was utilized for this reduction. Phases of contrast: venous and delayed COMPARISON: CT of the abdomen and pelvis September 09, 2017 FINDINGS: The absence of IV contrast limits sensitivity of this exam for the detection of soft tissue pathology Visualized neck: Grossly normal Airways, Lungs and Pleura: Grossly normal Heart, great vessels, pulmonary vessels, mediastinum: Mild aortic calcifications. Otherwise grossly normal Thoracic Lymph nodes: No axillary, internal mammary, or mediastinal adenopathy. Hilar lymph nodes are sub optimally evaluated due to the absence of IV contrast Hepato biliary system: Hepatic steatosis. Gallbladder is within normal limits Pancreas: Atrophic with mild fatty replacement Spleen: Grossly normal Adrenal glands: Grossly normal Genito urinary system: Grossly normal Gastrointestinal tract and appendix : Fatty metaplasia of the submucosa in the transverse and descending colon may represent sequela of a PAGE 1 Signed Report (CONTINUED) Name: LINDY AQUINO : 1960 Age/S: 58 / M [address] [facility] Unit #: [id number] Loc: [place] [address] Phys: Sara Coleman DO Acct: [id number] Dis Date: Status: REG ER PHONE #: [phone] Exam Date: 08/21/2019 3208 FAX #: [phone] Reason: chest pain, r/o dissection EXAMS: CPT CODE: [id number] CT CHEST W/O CONTRAST 89250 < Continued> previous infectious or inflammatory process. Small hiatal hernia is present. Small bowel is within normal limits. Appendix is not clearly visualized however no inflammatory changes are seen in the right lower abdomen in the expected region of the appendix. Abdominal vascular structures: Mild atherosclerotic disease in the abdominal aorta and iliac arteries Peritoneum and retroperitoneum: No free fluid or free air. No omental or mesenteric masses. No abnormal lymph nodes. Musculoskeletal structures, chest wall, and abdominal wall: Incompletely visualized hardware is present in the cervical spine. Mild degenerative changes are present in the lumbar spine degenerative changes are also present in the bilateral hips IMPRESSION: No acute abnormalities in the thorax, abdomen, or pelvis. Please note that aeration of vascular pathology, specifically dissection, is limited in the absence of IV contrast Location: [facility] at 1224 Reported and signed by: Frank Romero MD CC: Sara Coleman DO Technologist:Zarina Drew RT(R),CT; CTDI: DLP: Trnscb Date/Time: 08/21/2019 (122) [id number] Orig Print D/T: S: 08/21/2019 (4267) PAGE 2 Signed Report [id number] 12:23:00* Test Item Value Reference Range Comments ALCOHOL (test code=ALC) < 3 mg/dL 0.0-3.0 INTERPRETIVE DATA NOTE: POSITIVE SCREENING RESULTS SHOULD BE CONSIDERED PRESUMPTIVE.WHEN COLLECTED FOR MEDICAL PURPOSES ONLY. SPECIMEN WILL NOTBE COLLECTED BY CHAIN OF CUSTODY.IF A CONFIRMATION OF POSITIVE RESULTS IS DESIRED, ACONFIRMATION TEST MUST BE REQUESTED BY THE PHYSICIAN AT ANADDITIONAL CHARGE TO THE PATIENT. - CT HEAD/BRAIN W/O [id number] 12:09:00 Name: LINDY AQUINO [facility] : 1960 Age/S: 58 / M [address] [facility] Unit #: [id number] Loc: MarkTOMY [address] Phys: Sara Coleman DO Acct: [id number] Dis Date: Status: REG ER PHONE #: [phone] Exam Date: 08/21/2019 6279 FAX #: [phone] Reason: weakness EXAMS: CPT CODE: [id number] CT HEAD/BRAIN W/O CONT 01687 HISTORY: weakness TECHNIQUE: Noncontrast 2.[address] of the head. Examination acquired within 24 hours of arrival. Automated exposure control for dose reduction. COMPARISON: Noncontrast CT scan of the brain April 08, 2015 FINDINGS: No lacerations or contusions of the scalp or facial soft tissues. Calvarium and skull base are intact. No acute hemorrhage. No intracranial mass, mass effect, or midline shift. No effacement of the sulci or felipe-white matter interface. There is diffuse cortical atrophy. There also appears to be a hypodense lesion in the aashish (3/) which is new since 2014 but appears to be chronic. There are microvascular ischemic changes in the white matter. Visualized paranasal sinuses are clear. Mastoid air cells and middle ear cavities are clear. Orbital contents are unremarkable. IMPRESSION: No acute intracranial hemorrhage or mass effect. 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 This is new since 2014. Cortical atrophy and microvascular ischemic changes of the white matter. Location: [facility] at 1209 Reported and si gned by: Frank Romero MD CC: Sara Coleman DO Technologist:Zarina Drew RT(R),CT; CTDI: DLP: Tr nscb Date/Time: 08/21/2019 (9471) [id number] Orig Print D/ T: S: 08/21/2019 (6050) PAGE 1 Signed Report [id number] 11:49:00* Test Item Value Reference Range Comments GLUBED (test code=GLUBED) 103 mg/dL 74-106 Performed by certified matching machine operator at [facility] PROTHROMBIN [id number] 11:15:00* Test Item Value Reference Range Comments PROTHROMBIN TIME PATIENT (test code=PTP) 13.5 seconds 9.0-14.0 INTERNATIONAL NORMAL RATIO (test code=INR) 1.1 0.8-1.2 The therapeutic range for oral anticoagulant therapy formost indications is an international normalized ratio (INR)of between 2.0 and 3.0. The recommended therapeutic INRrange for various clinical situations is listed below: Clinical Situation INR range Pulmonary e mbolism treatment (2.0-3.0)Venous thrombosis treatmentVenous thrombosis prophylaxis (high risk surgery)Prevention of systemic embolism from: Acute myocardial infarction Valvular heart disease Atrial fibrillation Mechanical prosthetic heart valves (2.5-3.5) THROMBOPLASTIN TIME [id number] 11:15:00* Test Item Value Reference Range Comments THROMBOPLASTIN TIME PARTIAL (test code=PTT) 26.0 seconds 25.0-36.5 BASIC METABOLIC [id number] 11:11:00* Test Item Value Reference Range Comments SODIUM (test code=NA) 138 mmol/L 136-145 POTASSIUM (test code=K) 3.2 mmol/L 3.5-5.1 CHLORIDE (test code=CL) 87.0 mmol/L 98-107 CARBON DIOXIDE (test code=CO2) 18.0 mmol/L 21-32 ANION GAP (test code=GAP) 36.2 10-20 GLUCOSE (test code=GLU) 90 mg/dL 74-106 BLOOD UREA NITROGEN (test code=BUN) 27 mg/dL 7-18 GLOMERULAR FILTRATION RATE (test code=GFR) 23 mL/min >=60 Estimated GFR by using Modified MDRD formula.Chronic kidney disease is defined as either kidney damageor GFR <60 mL/min/1.73 m2 for >3 months. CREATININE (test code=CREAT) 2.80 mg/dL 0.7-1.3 BUN/CREATININE RATIO (test code=BUN/CREA) 9.6 10-20 CALCIUM (test code=CA) 9.1 mg/dL 8.5-10.1 HEPATIC FUNCTION [id number] 11:11:00* Test Item Value Reference Range Comments TOTAL PROTEIN (test code=PROT) 6.8 gram/dL 6.4-8.2 ALBUMIN (test code=ALB) 3.7 g/dL 3.4-5.0 GLOBULIN (test code=GLOB) 3.1 gram/dL 2.7-4.2 ALBUMIN/GLOBULIN RATIO (test code=A/G) 1.2 0.75-1.50 BILIRUBIN TOTAL (test code=BILT) 3.10 mg/dL 0.0-1.0 BILIRUBIN DIRECT (test code=BILD) 0.79 mg/dL 0.0-0.20 SGOT/AST (test code=AST) IUnit/L 15-37 SGPT/ALT (test code=ALT) IUnit/L 12-78 ALKALINE PHOSPHATASE TOTAL (test code=ALKP) 123 IUnit/L 45-117 Note change in reference range due to change in reagent. [id number] 11:11:00* Test Item Value Reference Range Comments LIPASE (test code=LIP) 261 U/L 73.0-393.0 [id number] 11:11:00* Test Item Value Reference Range Comments TROPONIN-I (test code=TROPI) 0.018 ng/mL 0-0.045 CBC W/AUTO [id number] 11:02:00* Test Item Value Reference Range Comments WHITE BLOOD CELL (test code=WBC) 13.8 K/mm3 4.5-12.5 RED BLOOD CELL (test code=RBC) 3.66 mill/mm3 4.0-5.8 HEMOGLOBIN (test code=HGB) 14.8 gram/dL 13.0-17.5 HEMATOCRIT (test code=HCT) 41.9 % 42.0-52.0 MEAN CELL VOLUME (test code=MCV) 114.5 fL 80-98 MEAN CELL HGB (test code=MCH) 40.4 picogram 27.0-33.0 MEAN CELL HGB CONCETRATION (test code=MCHC) 35.3 gram/dL 33.0-36.0 RED CELL DISTRIBUTION WIDTH (test code=RDW) 14.0 % 11.6-16.2 RED CELL DISTRIBUTION WIDTH SD (test code=RDW-SD) 59.7 fL 37.0-51.0 PLATELET COUNT (test code=PLT) 191 K/mm3 150-450 MEAN PLATELET VOLUME (test code=MPV) 12.1 fL 6.7-11.0 NEUTROPHIL % (test code=NT%) 73.6 % 39.0-69.0 IMMATURE GRANULOCYTE % (test code=IG%) 0.7 % 0.0-5.0 LYMPHOCYTE % (test code=LY%) 20.1 % 25.0-55.0 MONOCYTE % (test code=MO%) 5.1 % 0.0-10.0 EOSINOPHIL % (test code=EO%) 0.3 % 0.0-5.0 BASOPHIL % (test code=BA%) 0.2 % 0.0-1.0 NUCLEATED RBC % (test code=NRBC%) 0.2 % 0-0 NEUTROPHIL # (test code=NT#) 10.17 K/mm3 1.8-7.7 IMMATURE GRANULOCYTE # (test code=IG#) 0.10 x10 3/uL 0-0.03 LYMPHOCYTE # (test code=LY#) 2.78 K/mm3 1.0-5.0 MONOCYTE # (test code=MO#) 0.70 K/mm3 0-0.8 EOSINOPHIL # (test code=EO#) 0.04 K/mm3 0.0-0.5 BASOPHIL # (test code=BA#) 0.03 K/mm3 0.0-0.2 NUCLEATED RBC # (test code=NRBC#) 0.03 K/mm3 0.0-0.1 MANUAL DIFF REQUIRED (test code=MDIFF) NO BASIC METABOLIC [id number] 10:55:00* Test Item Value Reference Range Comments SODIUM (test code=NA) 138 mmol/L 136-145 POTASSIUM (test code=K) 3.2 mmol/L 3.5-5.1 CHLORIDE (test code=CL) 87.0 mmol/L 98-107 CARBON DIOXIDE (test code=CO2) mmol/L 21-32 ANION GAP (test code=GAP) 10-20 GLUCOSE (test code=GLU) mg/dL 74-106 BLOOD UREA NITROGEN (test code=BUN) mg/dL 7-18 GLOMERULAR FILTRATION RATE (test code=GFR) mL/min >=60 CREATININE (test code=CREAT) mg/dL 0.7-1.3 BUN/CREATININE RATIO (test code=BUN/CREA) 10-20 CALCIUM (test code=CA) mg/dL 8.5-10.1 HEPATIC FUNCTION [id number] 10:55:00* Test Item Value Reference Range Comments TOTAL PROTEIN (test code=PROT) gram/dL 6.4-8.2 ALBUMIN (test code=ALB) g/dL 3.4-5.0 GLOBULIN (test code=GLOB) gram/dL 2.7-4.2 ALBUMIN/GLOBULIN RATIO (test code=A/G) 0.75-1.50 BILIRUBIN TOTAL (test code=BILT) mg/dL 0.0-1.0 BILIRUBIN DIRECT (test code=BILD) mg/dL 0.0-0.20 SGOT/AST (test code=AST) IUnit/L 15-37 SGPT/ALT (test code=ALT) IUnit/L 12-78 ALKALINE PHOSPHATASE TOTAL (test code=ALKP) IUnit/L 45-117 [id number] 10:55:00* Test Item Value Reference Range Comments LIPASE (test code=LIP) U/L 73.0-393.0 [id number] 10:55:00* Test Item Value Reference Range Comments TROPONIN-I (test code=TROPI) ng/mL 0-0.045 CT ABDOMEN/PELVIS [id number] 02:57:00 [facility] [address] [id number] Patient Name: LINDY AQUINO MR #: [id number] : 1960 Age/Sex: 58/M [facility] #: [id number] Req #: [id number] Adm Physician: Ordered by: GENESIS NUÑEZ DO Report #: [id number] Location: ER Room/Bed: Procedure: [id number] C T/CT ABDOMEN/PELVIS WO Exam Date: 03/30/19 Exam Time : 0240 REPORT STATUS: Signed EXA MINATION: CT of the abdomen and pelvis without contrast. TECHNIQUE: Spiral CT images of the abdomen and pelvis were performed from the lung bases to the lesser trochanters. No intravenous contrast was given per iodine allergy. Co rj and sagittal reformatted images were obtained. COMPARISON: None. CLINICAL HISTORY:Nausea, vomiting, left lower quadrant abdominal pain DISCUSSION: ABSENCE OF INTRAVENOUS CONTRAST DECREASES SENSITIVITY FOR DETECTION OF FOCAL LESIONS AND VASCULAR PATHOLOGY. ABDOMEN/PELVIS: LOWER THO RAX: Unremarkable. HEPATOBILIARY:Hepatic parenchyma is diffusely hypoatten uating compatible with steatosis. No gallbladder wall thickening or pericholec ystic inflammation. SPLEEN: No splenomegaly. PANCREAS: No focal masses or ductal dilatation. ADRENALS: No adrenal nodules. KIDNEYS/URETERS: No hydronephrosis, stones, or solid mass lesions. PELVIC ORGANS/BLADDER: Ur inary bladder, prostate, and seminal vesicles are unremarkable. PERITONEU M/RETROPERITONEUM: No free air or fluid. LYMPH NODES: No pelvic sidewall, r etroperitoneal, or mesenteric lymphadenopathy. VESSELS: Limited evaluatio n without intravenous contrast. Atherosclerotic calcification of the abdominal aorta and iliac arterial systems without aneurysmal dilatation. GI TRACT: The distal large bowel is collapsed and poorly evaluated. Submucosal fat dep osition throughout the large bowel. There are a few diverticula scattered garo g the descending and sigmoid colon without evidence of diverticulitis. No wall thickening or adjacent inflammatory change involving the large bowel. Normal appendix. The stomach is collapsed with prominent rugal folds. No small bowel dilatation to suggest obstruction. BONES AND SOFT TISSUES: Small bilateral fat-containing inguinal hernias. No additional focal soft tissue abnormalities . No osseous destructive lesions. Mild degenerative disc changes and facet art hropathy of the lumbar spine. IMPRESSION: No acute intra-abdominal or pelvic CT abnormalities. No active large bowel inflammation in this patient w ith reported history of ulcerative colitis. Large bowel diverticulosis with out evidence of diverticulitis. Hepatic steatosis. Signed by: Dr. Blake De La Fuente M.D. on 03/30/2019 3:04 AM Dictated By: MEGAN DE LA FUENTE MD Elect ronically Signed By: MEGAN DE LA FUENTE MD on 03/30/19303 Transcribed By: HEIDI on 03/30/19303 COPY TO: GENESIS NUÑEZ DO CT ABDOMEN/PELVIS WO [place] [address] Patient Name: LINDY AQUINO MR #: [id number] : Age/Sex: 56/M Req #: [id number] Adm Physician: Ordered by: ANTHONY DAVIS [employer] Report #: [id number] Location: ER Room/Be d: Procedure: [id number] CT/CT ABDOMEN/PELVIS WO Exam Date: 08/11/17 Exam Time: 1619 REPORT STATUS: Signed PROCEDURE: CT ABDOMEN AND PELVIS WITHOUT CONTRAST COMPARISON: 06/27/15. INDICATIONS: ULCERATIVE COLITIS, VOMITTING CENTER ABDOMINAL PA IN FOR 3 DAYS TECHNIQUE: Axial CT images through the abdomen and pelvis wer e obtained without intravenous contrast. Coronal and sagittal reformations we re created. DLP: 371.4 mGy-cm FINDINGS: Lung bases: Clear. Visu alized portion mediastinum is normal. Right kidney: No calculus, mass, or hydronephrosis. Left kidney: There may be a pixel sized calculus in an ant erior interpolar calyx. No hydronephrosis. No cortical mass. Bladder/ur eters: Normal diameter throughout their course. No calculus. The bladder is n ormal. Liver: Profound hepatic steatosis. The right lobe measures 17 cm in length. No evidence of mass. Spleen: Normal in size and attenuation wi thout mass. Biliary: Present. No evidence of gallstone or gallbladder wall thickening. No biliary ductal dilatation. Pancreas: Mild fatty atrophy. No mas s or ductal dilatation. Adrenal Glands: No evidence of mass Vasculature: The aorta is normal in diameter with a few atherosclerotic calcifications. GI: The stomach is well distended and appears normal. The small bowel is nor mal in diameter with normal wall thickness. There is a small amount of submuc osal fat deposition in the terminal ileum. No associated inflammation or lymp hadenopathy. A diverticulum in the first portion of the duodenum contains a s mall amount of enteric contrast. This measures 7 mm in diameter. Ther e are diverticula in the large bowel without associated inflammation. There i s a small amount of contrast throughout the colon. Submucosal fat deposition in the right colon is stable with some progression into the transverse colon compared to previous exam. There is no evidence of fistula or fluid collectio n. Appendix: Normal. Peritoneum/Retroperitoneum: No free fluid or fl uid collection. Lymph nodes: No lymphadenopathy. MSK: There mild deg enerative changes of the spine consistent with age. Vertebral body heights ar e symmetric. There is no evidence of lytic or blastic lesion. Soft tiss ues: Small fat-containing inguinal hernias. CONCLUSION: 1. Divert iculosis coli. No acute inflammation. Progression of submucosal fat depositio n suggestive of previous bouts of inflammation. No bowel obstruction. Normal appendix. 2. Profound hepatic steatosis. 3. Tiny potential calculus in th e left kidney. No obstructive uropathy. Dictated by: Alyssa lal M.D. on 08/11/2017 at 16:59 Electronically approved by: Alyssa lal M.D. on 08/11/2017 at 16:59 Dictated By: ALYSSA Parra MD 58 Transcrib ed By: MARY LOU on 08/11/171658 COPY TO: ANTHONY DAVIS NP
[2019-09-10] MEDS ORDERED: SODIUM CHLORIDE 0.9% 1000ML 1,000 ML IV STA (19:32)
[2019-09-10 20:03] LABS: AMPHETAMINES SCREEN,URINE NEGATIVE (NEGATIVE); BENZODIAZEPINES SCREEN,URINE NEGATIVE (NEGATIVE); PHENCYCLIDINE SCREEN,URINE NEGATIVE (NEGATIVE)
--- NOTE | 2019-09-10 21:11 | Diagnostic Imaging Report ---
EXAM: CT Abdomen and Pelvis WITHOUT contrast INDICATION: ^ABD PAIN ^[id number] ^2009 COMPARISON: CT dated 03/30/2019 TECHNIQUE: Abdomen and pelvis were scanned utilizing a multidetector helical scanner from the lung base to the pubic symphysis without administration of IV contrast. Absence of intravenous contrast decreases sensitivity for detection of focal lesions and vascular pathology. Coronal and sagittal reformations were obtained. Routine protocol was performed. IV CONTRAST: None ORAL CONTRAST: None COMPLICATIONS: None RADIATION DOSE: Total DLP: 389.61 mGy*cm Estimated effective dose: (DLP x 0.015 x size factor) mSv CTDIvol has been reviewed. It is below the limits set by the Radiation Protocol Committee (RPC). FINDINGS: LINES and TUBES: None. LOWER THORAX: Unremarkable HEPATOBILIARY: Hepatic steatosis. No biliary ductal dilation. GALLBLADDER: No radio-opaque stones or sludge. No wall thickening. SPLEEN: No splenomegaly. PANCREAS: No focal masses or ductal dilatation. ADRENALS: No adrenal nodules KIDNEYS/URETERS: No hydronephrosis. Limited for evaluation of renal parenchyma without intravenous contrast. No stones. GI TRACT: No abnormal distention or evidence of bowel obstruction. Colonic submucosal fat deposition. Appendix is normal. PELVIC ORGANS/BLADDER: Unremarkable. LYMPH NODES: No lymphadenopathy. VESSELS: Mild aortoiliac atherosclerotic disease. PERITONEUM / RETROPERITONEUM: No free air or fluid. Minimal pericolonic fat stranding seen in left lower quadrant (series 2, image 68). BONES: Unremarkable. SOFT TISSUES: Small fat-containing bilateral inguinal hernia. IMPRESSION: 1. Minimal left lower quadrant pericolonic fat stranding, could represent mild diverticulitis. Otherwise, no definite evidence of acute inflammatory process in the abdomen/pelvis, considering limitations of unenhanced study. No pancreatitis. 2. Hepatic steatosis. 3. No evidence of active inflammatory bowel disease. Signed by: Dr. Tenzin Cedillo MD on 09/10/2019 9:09 PM
[2019-09-10] MEDS ORDERED: ONDANSETRON HCL INJ 2MG/ML 2ML 2 MG/ML VIAL IV ONE (21:49)
[2019-09-10 21:50] LABS: BASOPHILS % 0.3 % (0.0-1.0); EOSINOPHILS % 0.4 % (0.0-6.0); HEMATOCRIT 37.9 % (38.2-49.6); HEMOGLOBIN 13.8 g/dL (14.0-18.0); LYMPHOCYTES # (AUTO) 1.9 (1.0-3.2); MEAN CORPUSCULAR HGB CONC 36.4 g/dL (31-35); MEAN CORPUSCULAR VOLUME 109.9 fL (81-99); MONOCYTES # (AUTO) 0.8 (0.2-0.8); NEUTROPHILS # (AUTO) 7.3 (2.1-6.9); PLATELET COUNT 270 x10e3/uL (140-360); RED BLOOD COUNT 3.45 x10e6/uL (4.3-5.7); RED CELL DISTRIBUTION WIDTH 15.6 % (11.7-14.4)
[2019-09-10] MEDS ORDERED: ONDANSETRON HCL INJ 2MG/ML 2ML 2 MG/ML VIAL ONE (21:57)
[2019-09-11 00:22] LABS: ALANINE AMINOTRANSFERASE 19 IU/L (0-55); ALBUMIN 3.2 g/dL (3.5-5.0); ALBUMIN/GLOBULIN RATIO 1.1 (0.8-2.0); ALKALINE PHOSPHATASE 134 IU/L (40-150); ANION GAP 15.7 mmol/L (8-16); BLOOD UREA NITROGEN 6 mg/dL (7-26); BUN/CREATININE RATIO 7 (6-25); CALCIUM 8.1 mg/dL (8.4-10.2); CARBON DIOXIDE 33 mmol/L (22-29); CHLORIDE 98 mmol/L (98-107); CREATINE KINASE 59 IU/L (30-200); CREATININE, SERUM 0.81 mg/dL (0.72-1.25); EST GLOMERULAR FILTRATION RATE > 60 ML/MIN (60-); GLUCOSE 99 mg/dL (74-118); SODIUM 144 mmol/L (136-145)
[2019-09-11 00:28] LABS: POTASSIUM 2.7 mmol/L (3.5-5.1)
[2019-09-11] MEDS ORDERED: POTASSIUM CHLORIDE 10MEQ/100ML 200 ML IV ONE (01:00)
[2019-09-11] MEDS ORDERED: PROMETHAZINE 25MG/SOD CHL 0.9% 50 ML ONE (01:24)
[2019-09-11] MEDS: MORPHINE SULFATE INJ 4 MG/ML INJ 1ML IV PRN ×4 (01:41→20:05)
[2019-09-11] MEDS: SODIUM CHLORIDE 0.9% 1000ML 1,000 ML IV SCH ×3 (01:41→18:30)
[2019-09-11] MEDS ORDERED: PROMETHAZINE 25MG/ NS 50ML (IV) IV ONE (01:45)
[2019-09-11 02:25] LABS: LIPASE 51 U/L (8-78)
[2019-09-11] MEDS: METRONIDAZOLE 500MG/NS 100ML 100 ML IV SCH ×3 (05:15→16:50)
[2019-09-11] MEDS: ONDANSETRON HCL INJ 2MG/ML 2ML 2 MG/ML VIAL IV PRN ×3 (06:01→20:05)
[2019-09-11] MEDS: CIPROFLOXACIN 400 MG/D5W 200ML 200 ML IV SCH ×3 (06:15→21:03)
--- NOTE | 2019-09-11 07:11 | NUR ---
Recieved report from offgoing RN. Patient lying supine in bed. No distress noted. Awaiting inpatient bed.
--- NOTE | 2019-09-11 08:13 | NUR ---
Patient given 4mg morphine for pain
[2019-09-11 08:30] LABS: CREATINE KINASE MB 4.1 ng/mL (0-5.0)
--- NOTE | 2019-09-11 10:12 | NUR ---
Attempted to call report, RN currently unavailable. Will call this RN back.
--- NOTE | 2019-09-11 10:18 | NUR ---
Report called to Jorgito MONTIEL, patient will be transferred to [facility].
[2019-09-11 10:45] LABS: ANION GAP 16.7 mmol/L (8-16); BLOOD UREA NITROGEN 7 mg/dL (7-26); BUN/CREATININE RATIO 9 (6-25); CALCIUM 7.4 mg/dL (8.4-10.2); CARBON DIOXIDE 28 mmol/L (22-29); CHLORIDE 100 mmol/L (98-107); CREATININE, SERUM 0.79 mg/dL (0.72-1.25); EST GLOMERULAR FILTRATION RATE > 60 ML/MIN (60-); GLUCOSE 90 mg/dL (74-118); SODIUM 142 mmol/L (136-145)
[2019-09-11 10:53] LABS: POTASSIUM 2.7 mmol/L (3.5-5.1)
[2019-09-11 11:32] VITALS: BP 136/80
[2019-09-11 11:36] VITALS: BP 136/80
[2019-09-11] MEDS ORDERED: POTASSIUM CHLORIDE 20MEQ/100ML 100 ML IV ONE ×2 (11:45→14:30)
[2019-09-11 16:51] LABS: CREATINE KINASE MB 6.2 ng/mL (0-5.0)
[2019-09-11 17:24] VITALS: BP 132/77
[2019-09-11 20:00] VITALS: BP 130/82
[2019-09-11 20:05] VITALS: BP 130/82
--- NOTE | 2019-09-11 20:05 | NUR ---
PATIENT IN STABLE CONDITION, NO SIGNS OF DISTRESS NOTED. IV FLUIDS ARE RUNNING AT ORDERED RATE AND PATIENT VOICES PAIN AT A LEVEL OF 7 AND WAS MEDICATED ORDERED. BED IS IN LOW POSITION, BOTH SIDE RAILS ARE UP, CALL LIGHT WITHIN EASY REACH, WILL CONTINUE TO MONITOR.
[2019-09-12] VITALS (7 sets, daily range): BP systolic 129–160; BP diastolic 77–94
[2019-09-12] MEDS: SODIUM CHLORIDE 0.9% 1000ML 1,000 ML IV SCH ×3 (03:21→16:12)
[2019-09-12] MEDS: MORPHINE SULFATE INJ 4 MG/ML INJ 1ML IV PRN ×3 (04:22→12:42)
[2019-09-12] MEDS: ONDANSETRON HCL INJ 2MG/ML 2ML 2 MG/ML VIAL IV PRN ×2 (04:22→08:33)
[2019-09-12 05:56] LABS: BASOPHILS % 0.5 % (0.0-1.0); EOSINOPHILS # (AUTO) 0.3 (0.0-0.4); EOSINOPHILS % 3.1 % (0.0-6.0); HEMATOCRIT 33.4 % (38.2-49.6); HEMOGLOBIN 11.6 g/dL (14.0-18.0); LYMPHOCYTES % 24.6 % (18.0-39.1); MEAN CORPUSCULAR HEMOGLOBIN 40.8 pg (28-32); MEAN CORPUSCULAR HGB CONC 34.7 g/dL (31-35); MEAN CORPUSCULAR VOLUME 117.6 fL (81-99); MONOCYTES # (AUTO) 0.6 (0.2-0.8); MONOCYTES % 7.6 % (4.4-11.3); NEUTROPHILS # (AUTO) 5.1 (2.1-6.9); NEUTROPHILS % 63.8 % (38.7-80.0); PLATELET COUNT 154 x10e3/uL (140-360); RED BLOOD COUNT 2.84 x10e6/uL (4.3-5.7); RED CELL DISTRIBUTION WIDTH 16.3 % (11.7-14.4)
[2019-09-12] MEDS: METRONIDAZOLE 500MG/NS 100ML 100 ML IV SCH ×3 (06:12→22:00)
[2019-09-12 06:19] LABS: ANION GAP 18.2 mmol/L (8-16); BLOOD UREA NITROGEN 5 mg/dL (7-26); BUN/CREATININE RATIO 5 (6-25); CALCIUM 7.1 mg/dL (8.4-10.2); CARBON DIOXIDE 25 mmol/L (22-29); CHLORIDE 103 mmol/L (98-107); CREATININE, SERUM 0.91 mg/dL (0.72-1.25); EST GLOMERULAR FILTRATION RATE > 60 ML/MIN (60-); GLUCOSE 85 mg/dL (74-118); POTASSIUM 3.2 mmol/L (3.5-5.1); SODIUM 143 mmol/L (136-145)
[2019-09-12 07:07] LABS: FERRITIN 469.68 ng/mL (21.81-274.66)
--- NOTE | 2019-09-12 07:30 | NUR ---
PATIENT IS ALERT AND IN STABLE CONDITION WITH NO S/S OF RESPIRATORY DISTRESS. NO PAIN VOICED. IV FLUIDS INFUSING. PATIENT VOMITED x1- ZOFRAN NOT AVAILABLE AT THIS TIME. CALL LIGHT IS WITHIN REACH, PATIENT INSTRUCTED TO CALL FOR ASSISTANCE NEEDED.
[2019-09-12] MEDS: FAMOTIDINE 20 MG TAB PO SCH (07:33)
[2019-09-12] MEDS: CIPROFLOXACIN 400 MG/D5W 200ML 200 ML IV SCH ×2 (08:08→21:00)
[2019-09-12] MEDS: LORAZEPAM 0.5 MG TAB PO PRN ×2 (10:55→21:44)
--- NOTE | 2019-09-12 11:27 | NUR ---
GAVE PACKET OF INFORMATION WITH [facility] [employer] FOR ASSISTANCE WITH LOW TO NO INCOME TO PATIENT. RESOURCES THAT PATIENT MAY BE ABLE TO FOLLOW UP UPON DISCHARGE. PT EDUCATED ON EACH RESOURCE AND UNDERSTANDING HOW TO FOLLOW UP TO SEE IF QUALIFIED FOR EACH RESOURCE.
[2019-09-12 12:56] LABS: CLARITY,URINE CLEAR (CLEAR); COLOR,URINE YELLOW (YELLOW); LEUKOCYTE ESTERASE ,URINE NEGATIVE (NEGATIVE)
[2019-09-12 12:57] LABS: BILIRUBIN,URINE NEGATIVE (NEGATIVE); KETONES,URINE NEGATIVE (NEGATIVE); NITRITE,URINE NEGATIVE (NEGATIVE); PROTEIN,URINE DIPSTICK NEGATIVE (NEGATIVE); URINE UROBILINOGEN 0.2 mg/dL (0.2 - 1)
[2019-09-12 12:58] LABS: BACTERIA,URINE RARE /HPF; EPITHELIAL CELLS,URINE RARE /LPF; RBC,URINE 0-5 /HPF (0-5); WBC,URINE (MAN) 0-5 /HPF (0-5)
--- NOTE | 2019-09-12 19:30 | NUR ---
PATIENT IN STABLE CONDITION WITH NO S/S OF RESPIRATORY DISTRESS. UNABLE TO OBTAIN IV ACCESS- NIGHT NURSE INFORMED. CALL LIGHT IS WITHIN REACH, PATIENT INSTRUCTED TO CALL FOR ASSISTANCE NEEDED. BEDSIDE REPORT GIVEN TO ONCOMING NURSE.
[2019-09-12] MEDS ORDERED: MORPHINE SULFATE 2 MG/ML SYR 1ML IM STA (21:46)
[2019-09-13] VITALS (9 sets, daily range): BP systolic 131–187; BP diastolic 71–98
[2019-09-13] MEDS: SODIUM CHLORIDE 0.9% 1000ML 1,000 ML IV SCH ×2 (00:10→08:01)
[2019-09-13] MEDS ORDERED: ONDANSETRON HCL INJ 2MG/ML 2ML 2 MG/ML VIAL IV PRN (02:30)
[2019-09-13] MEDS: MORPHINE SULFATE INJ 4 MG/ML INJ 1ML IV PRN ×2 (05:03→08:12)
[2019-09-13] MEDS: LORAZEPAM 0.5 MG TAB PO PRN (05:03)
[2019-09-13] MEDS: METRONIDAZOLE 500MG/NS 100ML 100 ML IV SCH (05:04)
[2019-09-13 05:32] LABS: BASOPHILS # (AUTO) 0.1 (0.0-0.1); BASOPHILS % 0.6 % (0.0-1.0); EOSINOPHILS # (AUTO) 0.3 (0.0-0.4); EOSINOPHILS % 3.6 % (0.0-6.0); HEMATOCRIT 31.9 % (38.2-49.6); HEMOGLOBIN 11.2 g/dL (14.0-18.0); LYMPHOCYTES % 24.6 % (18.0-39.1); MEAN CORPUSCULAR HEMOGLOBIN 40.9 pg (28-32); MEAN CORPUSCULAR HGB CONC 35.1 g/dL (31-35); MEAN CORPUSCULAR VOLUME 116.4 fL (81-99); MONOCYTES # (AUTO) 0.7 (0.2-0.8); MONOCYTES % 9.1 % (4.4-11.3); NEUTROPHILS % 61.7 % (38.7-80.0); PLATELET COUNT 132 x10e3/uL (140-360); RED BLOOD COUNT 2.74 x10e6/uL (4.3-5.7); RED CELL DISTRIBUTION WIDTH 15.9 % (11.7-14.4)
[2019-09-13 05:53] LABS: ANION GAP 16.1 mmol/L (8-16); BLOOD UREA NITROGEN < 5 mg/dL (7-26); CALCIUM 7.6 mg/dL (8.4-10.2); CARBON DIOXIDE 25 mmol/L (22-29); CHLORIDE 101 mmol/L (98-107); CREATININE, SERUM 0.78 mg/dL (0.72-1.25); EST GLOMERULAR FILTRATION RATE > 60 ML/MIN (60-); GLUCOSE 96 mg/dL (74-118); MAGNESIUM 1.2 MG/DL (1.3-2.1); PHOSPHORUS 2.8 MG/DL (2.3-4.7); POTASSIUM 3.1 mmol/L (3.5-5.1); SODIUM 139 mmol/L (136-145)
[2019-09-13 05:54] LABS: BUN/CREATININE RATIO 6 (6-25)
[2019-09-13] MEDS: FAMOTIDINE 20 MG TAB PO SCH (07:47)
--- NOTE | 2019-09-13 07:48 | Diagnostic Imaging Report ---
EXAM: Abdomen Radiograph 1 View INDICATION: increased pain to abd and cramping COMPARISON: Abdominal CT 09/10/2019 FINDINGS: No abnormalities in the lower chest. No lines or tubes. Normal volume of stool in the colon. No dilated loops of small bowel. No abnormal abdominal calcifications.. No abnormal soft tissue masses. No pneumoperitoneum. No acute osseous abnormality. Mild degenerative changes in the lumbar spine and pelvis. IMPRESSION: No acute abdominal radiographic abnormality. Signed by: Drew Dumas DO on 09/13/2019 7:46 AM
[2019-09-13 07:59] LABS: HYPOCHROMASIA MODERATE; PLATELET ESTIMATE MODERATELY DECREASED; PLATELET MORPHOLOGY COMMENT FEW LARGE
[2019-09-13 08:00] LABS: RBC MORPHOLOGY COMMENT ABNORMAL
[2019-09-13] MEDS: CIPROFLOXACIN 400 MG/D5W 200ML 200 ML IV SCH (08:01)
--- NOTE | 2019-09-13 08:09 | NUR ---
informed Dr. Berman of KUB results, order received to administer additional dose of pain medication and resume per order.
[2019-09-13] MEDS ORDERED: MORPHINE SULFATE 2 MG/ML SYR 1ML IV PRN (10:45)
[2019-09-13] MEDS ORDERED: ACETAMINOPHEN/CODEINE 300MG - 30MG TAB PO PRN (10:45)
[2019-09-13] MEDS ORDERED: METRONIDAZOLE500 MG PO (10:50)
[2019-09-13] MEDS ORDERED: CIPRO500 MG PO (10:50)
[2019-09-13] MEDS ORDERED: TYLENOL WITH C1 EACH PO (10:50)
[2019-09-13] MEDS ORDERED: Folic Acid PO (10:50)
[2019-09-13] MEDS ORDERED: DICYCLOMINE HCL20 MG PO (10:50)
[2019-09-13] MEDS ORDERED: ACETAMINOPHEN 325 MG TAB PO PRN (11:00)
[2019-09-13] MEDS ORDERED: HYDRALAZINE HCL 20 MG/ML VIAL IV PRN (11:00)
[2019-09-13] MEDS ORDERED: ZOFRAN4 MG PO (11:00)
[2019-09-13] MEDS ORDERED: FOLIC ACID 1 MG TAB PO SCH (11:30)
[2019-09-13] MEDS ORDERED: DICYCLOMINE HCL 10 MG CAP PO SCH (11:30)
[2019-09-13] MEDS ORDERED: CALCIUM GLUCONATE 10% INJ 9.3 MEQ in SODIUM CHLORIDE 0.9% 100 ML 100 ML IV ONE (11:30)
[2019-09-13] MEDS ORDERED: POTASSIUM CHLORIDE 20 MEQ TAB CR PO ONE (11:45)
[2019-09-13] MEDS ORDERED: MAGNESIUM SULFATE 2GM/50ML 50 ML IV ONE (12:00)
--- NOTE | 2019-09-13 15:50 | NUR ---
LEFT UPPER ARM MID LINE REMOVED, TIP INTACT AND MEASURES AT 10, PATIENT TOLERATED WELL
--- NOTE | 2019-09-14 05:13 | Discharge Summary ---
ADMISSION DIAGNOSES: Diverticulitis and hypokalemia. DISCHARGE DIAGNOSES: Diverticulitis and hypokalemia. HISTORY: Colitis and pancreatitis, history of alcohol abuse. SURGICAL HISTORY: Hernia repair, neck surgery. FAMILY HISTORY: Noncontributory. SOCIAL HISTORY: History of alcohol abuse. HOSPITAL COURSE: A 58-year-old male admits with complaints of left upper and lower quadrant abdominal pain with associated nausea, vomiting, and diarrhea for the past three days. On admission, CT of the abdomen and pelvis showed minimal left lower quadrant pericolonic fat stranding, could represent mild diverticulitis. Otherwise no definite evidence of acute inflammatory process, hepatic steatosis, and no evidence of active inflammatory bowel disease. GI was consulted. Stool for blood was ordered, but never collected. Antibiotics were started. Cipro and Flagyl. According to the RN, the patient appeared to like his pain medicines. He complained of worsening abdominal pain that he could not stand, so GI ordered a KUB, which was negative. The patient's lipase was within normal limits. Folate was less than two. The patient is no longer having diarrhea and electrolytes are controlled. The patient will discharge home per his request to take care of his cat. He was given prescriptions for Cipro, Tylenol 3, Bentyl, folic acid, Flagyl, and Zofran. He will follow up with primary care and GI in 1 to 2 weeks. The patient understands discharge instructions and agrees to plan. Dictated by Alyssa Marquez NP MD AFSANEH Harris/MODL /[id number]
== END 2019-09-13 16:15 | disposition home or self-care (01) ==
LOC: ER 18:25 → ERHOLD 09-11 00:52 → IMCU 09-11 11:19
PROVIDERS: ADMIT Internal Medicine; ATTEND Internal Medicine
DX: K57.92 Diverticulitis of intestine, part unspecified, without perforation or abscess without bleeding (principal); E87.6 Hypokalemia
CPT/HCPCS: 36415 ×4; 36568; 36569; 74019; 74176; 80048 ×3; 80053; 80307; 80320; 81001; 82550 ×2; 82553 ×2; 82607; 82728; 82746; 83540; 83690; 83735; 83880; 84100; 84466; 84484 ×2; 85025 ×3; 85045; 92526; 92610; 93005; 96365; 96374; 99284; G0378 ×3; J0360; J0610; J0744 ×2; J2270 ×4; J2405 ×3; J2550; J3475; J3480 ×2; J7030 ×4